=== PATIENT | male | born 1935 | race Caucasian/White ===

== ENCOUNTER 2018-08-30 09:53 | Emergency (ER) | payer MEDICARE, OTHER ==
--- OUTSIDE RECORDS SUMMARY | 2018-08-30 10:18 | XMS REPORT | Continuity of Care Document ---
:1935 External Reference #:[id number] Author Name Rubén Gomes M.D. Address [address] [place] [address] Care Team Providers Name Role Phone Lincoln Javier M.D. Primary Care Physician Unavailable Payers Type Date Identification Numbers Payment Provider Subscriber Onset: 2011 Policy Number: [id number] Medicare - [facility] Mitchell Traore PayID: [id number] [address] [place] [address] Onset: 2011 Policy Number: [id number] [facility] Mitchell Traore PayID: [id number] [address] [place] [address] Advance Directives Description No Information Available Problems Date Description Provider Status Onset: Coronary artery bypass graft Active Note: 2005 Onset: Pure hypercholesterolemia Active Onset: Essential hypertension Active Onset: H/O: depression Active Onset: Anxiety Active Onset: 01/11/2015 Exudative age-related macular Rubén Gomes M.D. Active degeneration Onset: 01/11/2015 Nonexudative age-related macular Rubén Gomes M.D. Active degeneration Onset: 01/11/2015 Pseudophakia Rubén Gomes M.D. Active Onset: 04/30/2015 Ocular hypertension Rubén Gomes M.D. Active Onset: 12/04/2016 Conjunctivochalasis Raeann Carter O.D. Active Onset: 07/30/2017 Central retinal vein occlusion Rubén Gomes M.D. Active Onset: 10/12/2017 Central retinal vein occlusion with Rubén Gomes M.D. Active macular edema Onset: 10/12/2017 Retinal edema Rubén Gomes M.D. Active Family History Date Family Member(s) Problem(s) Comments Mother Macular Degeneration First Sister Macular Degeneration Social History Type Date Description Comments Sex Unknown Marital Status Legal Status: Occupation [employer] retired ETOH Use Denies alcohol use Tobacco Use Start: Unknown Patient has never smoked Recreational Drug Use Denies Drug Use Smoking Status Reviewed: 08/05/18 Patient has never smoked Allergies, Adverse Reactions, Alerts Description No Known Drug Allergies Medications Medication Date Status Form Strength Qnty SIG Indications Ordering Provider Artificial Tears 07/29 Active Solution 0.2-0.2-1 1 drop Rubén Leary % both eyes Arleo, twice a M.D. day as needed Lisinopril Active Tablets 20mg Unknown /0000 Amlodipine Active Tablets 5mg Unknown Besylate Citalopram Active Tablets 20mg Unknown Hydrobromide Aspirin Active Tablets 81mg Unknown / Simvastatin Active Tablets 80mg Unknown Alprazolam Active Tablets 0.25mg Unknown Dispers Hydrochlorothiazi Active Tablets 25mg Crepet, de Marge Saba Fluticasone Active Suspension 50mcg/Act Yaya, Propionate Lincoln Saba Metoprolol Active Tablets ER 100mg Yaya, Succinate ER 24HR Lincoln Saba Fluorometholone 12/04 Hx Suspension 0.1% 1unit 1 drop H11.823 Raeann Doe s both eyes Raul, - 3 times a O.D. 01/21 day for week, then discontinu e Artificial Tears 01/10 Hx Solution 1.4% 1 drop both eyes - every day 12/03 Vigamox 10/19 Hx Solution 0.5% 3ml one drop Rubén Leary left eye Arleo, - three M.D. 01/10 times day, start the day before surgery Xanax Hx Tablets 0.25mg Unknown /0000 - 09/05 Metoprolol 00/ Hx Tablets 100mg Unknown Tartrate /0000 - 09/05 Medications Administered in Office Medication Date Status Form Strength Qnty SIG Indications Ordering Provider Avastin Administered Injection Rubén Leary Bevacizumab Zulay Gomes M.D. Avastin Administered Injection Rubén Gomes M.D. Avastin Administered Injection Rubén Gomes M.D. Avastin Administered Injection Rubén Leary Bevacizumab 018 Jayant Gomes Avastin Administered Injection Rubén Leary Bevacizumab 015 Jayant Gomes Avastin Administered Injection Rubén Leary Bevacizumab 015 Jayant Gomes Avastin Administered Injection Rubén Fair 015 Jayant Gomes Avastin Administered Injection Rubén Fair 015 Jayant Gomes Avastin Administered Injection Rubén Gomes M.D. Immunizations Description No Information Available Vital Signs Date Vital Result Comment 12/13/2017 1:56pm BP Systolic 160 mmHg BP Diastolic 87 mmHg Heart Rate 50 /min Respiratory Rate 15 /min 11/08/2017 3:27pm BP Systolic 162 mmHg BP Diastolic 88 mmHg Heart Rate 53 /min Respiratory Rate 16 /min 10/12/2017 2:25pm BP Systolic 182 mmHg BP Diastolic 90 mmHg Heart Rate 60 /min Respiratory Rate 15 /min 09/06/2017 2:12pm BP Systolic 168 mmHg BP Diastolic 72 mmHg Heart Rate 60 /min Respiratory Rate 16 /min Results Description No Information Available Procedures Date Code Description Status 12/28/2017 05596 Scanning Computerized Opthalmic Diagnostic Posterior Seg Completed Retina 12/28/2017 94079 Est Patient Intermediate Exam Completed 12/13/2017 06629 Injection Intravitreal Of A Pharmacologic Agent Completed 11/08/2017 01624 Injection Intravitreal Of A Pharmacologic Agent Completed 11/02/2017 99752 Scanning Computerized Opthalmic Diagnostic Posterior Seg Completed Retina 11/02/2017 34332 Est Patient Comprehensive Exam Completed 10/12/2017 15567 Injection Intravitreal Of A Pharmacologic Agent Completed 09/06/2017 43393 Injection Intravitreal Of A Pharmacologic Agent Completed 08/30/2017 19095 Fundus Photography With Interpretation And Report Completed 08/30/2017 64622 Est Patient Intermediate Exam Completed 07/30/2017 20763 Scanning Computerized Opthalmic Diagnostic Posterior Seg Completed Retina 07/30/2017 12559 Est Patient Comprehensive Exam Completed 01/26/2017 82985 Scanning Computerized Opthalmic Diagnostic Posterior Seg Completed Retina 01/26/2017 04081 Est Patient Comprehensive Exam Completed 12/04/2016 59397 Est Patient Intermediate Exam Completed 07/31/2016 63741 Scanning Computerized Opthalmic Diagnostic Posterior Seg Completed Retina 07/31/2016 96027 Est Patient Comprehensive Exam Completed 01/30/2016 67885 Scanning Computerized Opthalmic Diagnostic Posterior Seg Completed Retina 01/30/2016 52855 Determination Of Refractive State Completed 01/30/2016 20543 Est Patient Comprehensive Exam Completed 08/27/2015 85742 Scanning Computerized Opthalmic Diagnostic Posterior Seg Completed Retina 08/27/2015 95536 Est Patient Comprehensive Exam Completed 04/30/2015 78285 Scanning Computerized Opthalmic Diagnostic Posterior Seg Completed Retina 04/30/2015 35285 Est Patient Comprehensive Exam Completed 04/01/2015 05142 Injection Intravitreal Of A Pharmacologic Agent Completed 02/04/2015 18144 Injection Intravitreal Of A Pharmacologic Agent Completed 01/11/2015 48939 Scanning Computerized Opthalmic Diagnostic Posterior Seg Completed Retina 01/11/2015 67602 Est Patient Comprehensive Exam Completed 12/18/2014 60972 Injection Intravitreal Of A Pharmacologic Agent Completed 11/26/2014 68942 Injection Intravitreal Of A Pharmacologic Agent Completed 10/22/2014 98132 Injection Intravitreal Of A Pharmacologic Agent Completed 09/24/2014 01237 Scanning Computerized Opthalmic Diagnostic Posterior Seg Completed Retina 09/24/2014 58576 Est Patient Comprehensive Exam Completed 06/12/2014 78837 Scanning Computerized Opthalmic Diagnostic Posterior Seg Completed Retina 06/12/2014 54436 Est Patient Comprehensive Exam Completed 05/31/2013 52538 Extracapsular Cataract Extraction W/Intraocular Lens Completed 05/24/2013 20947 Extracapsular Cataract Extraction W/Intraocular Lens Completed 05/18/2013 62867 Ophthalmic Biometry Completed 05/18/2013 13566 Ophthalmic Biometry Completed 05/11/2013 82071 Est Patient Intermediate Exam Completed 11/08/2012 68067 Est Patient Comprehensive Exam Completed 11/08/2012 59202 Determination Of Refractive State Completed 11/08/2012 39363 Scanning Computerized Opthalmic Diagnostic Posterior Seg Completed Retina 07/02/2011 30375 Fundus Photography With Interpretation And Report Completed 07/02/2011 31499 Est Patient Comprehensive Exam Completed 01/28/2010 79818 Scanning Laser W/Interp And Report Completed 01/28/2010 39197 Determination Of Refractive State Completed 01/28/2010 55616 Est Patient Comprehensive Exam Completed 07/08/2009 35043 Fundus Photography With Interpretation And Report Completed 07/08/2009 02541 Est Patient Intermediate Exam Completed 01/04/2009 34816 Scanning Laser W/Interp And Report Completed 01/04/2009 84880 Determination Of Refractive State Completed 01/04/2009 99733 Est Patient Comprehensive Exam Completed 03/29/2008 69674 Fundus Photography With Interpretation And Report Completed 03/29/2008 13887 Determination Of Refractive State Completed 03/29/2008 39390 New Patient Comprehensive Exam Completed Encounters Type Date Location Provider Dx Diagnosis Office Visit 12/11/2016 Raeann Arriola LloydIlana Carter, H11.823 Conjunctivochalas 10:15a , renato Tubbs is, bilateral Office Visit 05/18/2013 Rubén Gomes, Rubén Gomes, 366.16 Senile Nuclear 11:30a renato SAUL M.D. Sclerosis / Cataract 366.16 Senile Nuclear Sclerosis / Cataract Plan of Treatment 08/05/2018 - Rubén Gomes M.D.H35.3112 Nonexudative age-related macular degeneration, right eye, intermediate dry stageComments:Smoking can increase the risk of developing or worsening any eye related disease, as well as affect your overall health. If you are a smoker, we strongly recommend that you quit.If you are not a smoker, we strongly recommend that you do not start. You have Macular Degeneration. Check your Amsler Grid, with each eye separately, and take the AREDS II formula vitamins. If you notice any changes in your vision , please call the office and schedule an appointment to see any of the doctors here.Follow up:1 Year Follow Up Diagnostic Refraction OCT MAC You can expect to have your eyes dilated at your next visit. If Dr. Gomes orders any additional testing, it may require extra time. We recommend that youbring sunglasses, as dilation drops often make you light sensitive until they wear off. We always recommend you bring someone to drive you home if you are uncomfortable driving with your eyes dilated. If you have any questions before your next visit, feel free to call our office at .H35.3223 Exudative age-related macular degeneration, left eye, with inactive scarComments :The wet Macular Degeneration in your left eye appears to be inactive at this time. Continue to monitor your vision, with each eye separately. Use your Amsler Grid and continue taking the AREDS 2 Formula Vitamins. If you notice any changes in your vision before your next appointment, please call theoffice at to schedule an appointment.Follow up:H34.7922 Central retinal vein occlusion, right eye, stableComments:You have a Central Retinal Vein Occlusion. This occurs when the retinal veins have become blocked by, amongst other things, fat deposits or a blood clot. You are at an increased risk of having a Central Retinal Vein Occlusion if there has been any hardening of the arteries in the eye. Please followany instructions given to you by Dr. Gomes.Z96.1 Presence of intraocular lensComments:The artificial lens implants in both eyes appear to be stable at this time.
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
[2018-08-30 11:33] VITALS: BP 100/63
== END 2018-08-30 11:33 | disposition home or self-care (01) ==
LOC: ED 09:53
DX: T14.8XXA Other injury of unspecified body region, initial encounter (principal); M25.511 Pain in right shoulder; V49.9XXA Car occupant (driver) (passenger) injured in unspecified traffic accident, initial encounter; Y92.9 Unspecified place or not applicable
CPT/HCPCS: 99282

== ENCOUNTER 2019-03-30 09:00 | Inpatient (IN) | payer MEDICARE ==
--- NOTE | 2019-03-19 13:57 | HP ---
PREOPERATIVE HISTORY AND PHYSICAL: DATE OF ADMISSION: 03/30/19 ATTENDING PROVIDER: Dr. Rodriguez * (DICTATED BY EZE JUNG) CHIEF COMPLAINT: Left knee pain. HISTORY OF PRESENT ILLNESS: Mr. Traore is an 84-year-old male, who presents with greater than 3 years of increasingly severe left knee pain. His pain increases with walking more than a block. The pain is a constant dull ache with occasional sharp shooting discomfort. He has pain with any prolonged standing or after period of sitting, the knee can be unstable at times and he ambulates with a cane at all times. He has tried anti-inflammatories, intraarticular injections, as well as a home exercise program without relief and would like to proceed with surgical intervention at this time. PAST MEDICAL HISTORY: Hypertension, heart disease, atrial fibrillation, gout, and GERD. PAST SURGICAL HISTORY: CABG x2, right total hip arthroplasty, bilateral shoulder surgery. CURRENT MEDICATIONS: 1. Metoprolol tartrate 100 mg 1 by mouth twice a day. 2. Simvastatin 80 mg 1 by mouth every night at bedtime. 3. Omeprazole 20 mg 1 by mouth daily. 4. Alprazolam 0.25 mg 1 tab p.o. daily. 5. Lisinopril 20 mg 1 tab by mouth daily. 6. Citalopram hydrobromide 20 mg 1 tab by mouth daily. 7. Amlodipine besylate 5 mg 1 tab p.o. daily. 8. Hydrochlorothiazide 12.5 mg 1 capsule p.o. daily. 9. Allopurinol 300 mg 1 tab a day. ALLERGIES: No known drug allergies. FAMILY HISTORY: Positive for heart disease in his father, but negative for cancer or diabetes. SOCIAL HISTORY: He lives alone, but his daughter will be helping to care for him, although she does suggest that he go to rehab for more intensive care following surgery. He is retired. He denies tobacco, alcohol, or recreational drug use and he exercises minimally due to pain. REVIEW OF SYSTEMS: A 14-point review of systems today reveals left hip pain as well as left knee pain, but he denies fever, chills, chest pain, shortness of breath with exertion, nausea, vomiting, diarrhea, headache, or dizziness. All other systems are negative. PHYSICAL EXAMINATION GENERAL: He is a well-developed, well-nourished male, seated in exam chair, in no acute distress, with appropriate affect. VITAL SIGNS: Height 61 inches, weight 220 pounds, pulse 60, blood pressure 124/ 60, with a body mass index of 41.6. HEENT: Normocephalic, atraumatic. Hearing and vision are grossly intact, with extraocular movements intact. NECK: The trachea is midline and symmetrical. LUNGS: No labored breathing. Clear to auscultation without wheezing, rales, or rhonchi appreciated. HEART: Regular rate and rhythm. Normal S1, S2. No murmurs, rubs, or gallops appreciated. ABDOMEN: Nondistended and nontender. Bowel sounds present. GENITOURINARY: Deferred. MUSCULOSKELETAL: Left lower extremity: Skin is pink, dry, and intact without abrasions or open wounds. He has a uqzbxfbh-bb-jplys effusion of the knee with 10 to 100 degrees of flexion and extension. No varus or valgus instability, with negative Juan Pablo's. He is tender to palpation along the medial joint line with pain and patellofemoral crepitus with range of motion. No distal edema, varicosities, or hyperreflexia. 5/5 ankle dorsiflexion and plantarflexion strength with sensation intact to light touch in all distributions and a 2+ dorsalis pedis pulse. IMAGING: Left knee shows medial vvtt-iw-qobf arthritis with tricompartmental joint space narrowing, osteophyte formation, and subchondral sclerosis. ASSESSMENT: Left knee severe osteoarthritis. PLAN: Left total knee replacement with Dr. Rodriguez. The patient's questions were answered and he would like to proceed. He will follow up postoperatively. Medications will be given upon discharge from the hospital and he can call with questions or concerns otherwise. EZE JUNG [id number]/[facility] #: [id number] MICHAEL
--- NOTE | 2019-07-05 16:35 | HP ---
HISTORY AND PHYSICAL: DATE OF ADMISSION/SURGERY: 07/11/19 DATE OF OFFICE VISIT: 07/03/19 SURGEON: Kira Rodriguez MD * (DICTATED BY EZE GABRIEL) PROCEDURE: Left total knee arthroplasty. CHIEF COMPLAINT: Left knee pain. HISTORY OF PRESENT ILLNESS: Mr. Traore is an 84-year-old gentleman with continued complaints of left knee pain. He has failed conservative treatment and elected to proceed with a left total knee arthroplasty. PAST MEDICAL HISTORY: 1. Hypertension. 2. High cholesterol. 3. GERD. 4. Coronary artery disease with history of 2 bypasses, SVT and thrombocytopenia. PAST SURGICAL HISTORY: 1. CABG x2. 2. Bilateral shoulder replacements. 3. Right total hip arthroplasty. 4. Hernia repair. CURRENT MEDICATIONS: 1. Simvastatin 80 mg q.h.s. 2. Omeprazole 20 mg a day. 3. Alprazolam 0.25 mg a day. 4. Lisinopril 20 mg a day. 5. Citalopram hydrobromide 20 mg a day. 6. Amlodipine 5 mg a day. 7. Hydrochlorothiazide 12.5 mg a day. 8. Allopurinol 300 mg a day. 9. Metoprolol 100 mg half a tab every day. 10. Nasal spray. 11. Nitroglycerin as needed. ALLERGIES: No known drug allergies. FAMILY HISTORY: Cancer, coronary artery disease and diabetes. SOCIAL HISTORY: He is an 84-year-old gentleman, lives alone. He does not smoke or use drugs. REVIEW OF SYSTEMS: A complete 14-point review of systems was reviewed with the patient, it was positive for thrombocytopenia and GERD. He denies history of DVT, PE, hepatitis, HIV, or anesthesia problems. PHYSICAL EXAMINATION GENERAL: Well developed, well nourished, in no acute distress. VITAL SIGNS: He stands 61 inches tall, weighs 220 pounds, blood pressure is 110 /76, heart rate 104. HEENT: Normocephalic, atraumatic. NECK: Supple. No palpable lymph nodes. PULMONARY: The lungs are clear to auscultation bilaterally. CARDIO: Regular rate and rhythm. Strong S1, S2. ABDOMEN: Soft, nontender, nondistended. NEUROLOGICAL: He is alert and oriented x3. MUSCULOSKELETAL: Left lower extremity: The skin is intact. There are no open wounds or abrasions. There is a moderate effusion of the left knee joint. He has some tenderness over the medial and lateral joint line. He walks with an antalgic type gait favoring his left knee. He is able to dorsiflex and plantarflex. He has 2+ dorsalis pedis pulse and intact sensation. ASSESSMENT AND PLAN: Mr. Traore is an 84-year-old gentleman with severe end- stage osteoarthritis of the left knee. He has failed conservative treatment and elected to proceed with a left total knee arthroplasty. The surgery is scheduled for 07/11/[address] Rodriguez discussed the risks and benefits of the surgery at today's visit and all of his questions were answered. He will follow up with Dr. Rodriguez 2 weeks after the surgery. No TXA will be used in this patient because of his history of thrombocytopenia. EZE GABRIEL [id number]/[facility] #: [id number] MICHAEL
[2019-07-10] MEDS ORDERED: Buffered Lidocaine 1% SYRIN* 1 ML/SYRINGE INTRADERM ONE (13:12)
[2019-07-10] MEDS ORDERED: Lactated Ringers 1000 ML Bag* 1,000 ML IV SCH (14:00)
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
--- OUTSIDE RECORDS SUMMARY | 2019-07-11 12:57 | XMS REPORT | Continuity of Care Document ---
:1935 External Reference #:[id number] Author Name Kira Rodriguez M.D. (transmitted by agent of provider Bia Coreas) Address [address] [place] [id number] Care Team Providers Name Role Phone Lincoln Javier MD - Family Medicine Care Team Information Tester Compressed Gases Problems Active Problems Provider Date Coronary arteriosclerosis Jerome Lebron M.D. Onset: 11/08/2013 Arteriosclerosis of autologous vein coronary Jerome Lebron M.D. Onset: artery bypass graft Paroxysmal supraventricular tachycardia Jerome Lebron M.D. Onset: 2013 Localized, primary osteoarthritis of the Kira Rodriguez M.D. Onset: 02/24/2019 pelvic region and thigh Localized, primary osteoarthritis Kira Rodriguez M.D. Onset: 02/24/2019 Social History Type Date Description Comments Sex Unknown Tobacco Use Start: Unknown End: Former Cigarette Smoker Unknown Smoking Status Reviewed: 07/03/19 Former Cigarette Smoker ETOH Use Denies alcohol use Tobacco Use Start: Unknown End: Patient is a former 1 pack per day,quit Unknown smoker smoking 40 years ago Recreational Drug Use Denies Drug Use Exercise Type/Frequency Does not exercise Allergies, Adverse Reactions, Alerts Description No Known Drug Allergies Medications Active Medications SIG Qnty Indications Ordering Date Provider Simvastatin 1 by mouth Unknown 80mg Tablets every night at bedtime Omeprazole 1 by mouth 90caps Unknown 20mg Capsules DR every day Alprazolam 1 tab po qd 20tabs Unknown 0.25mg Tablets Lisinopril 1 by mouth 90tabs Unknown 20mg Tablets every day Citalopram Hydrobromide 1 by mouth 30tabs Unknown 20mg every day Tablets Amlodipine Besylate 1 tablet po [place], 5mg Tablets daily MD Adan Hydrochlorothiazide 1 cap po daily Lincoln Javier, 12.5mg MD Capsules Allopurinol 1 by mouth Unknown 300mg Tablets every day Eye Lubricant Unknown Ointment Fluticasone Propionate 2 sprays to Unknown Nasal [place] each nare 50mcg/Act Suspension daily Nitroglycerin Unknown Metoprolol Succinate ER 50mg qam and Unknown 100mg qpm Immunizations Description No Information Available Vital Signs Date Vital Result Comment 07/03/2019 1:32pm Height 61 inches 5'1" Weight 220.00 lb Heart Rate 104 /min BP Systolic Sitting 110 mmHg BP Diastolic Sitting 76 mmHg Respiratory Rate 18 /min Body Temperature 96.9 F Pain Level 0 BMI (Body Mass Index) 41.6 kg/m2 03/17/2019 9:45am Height 61 inches 5'1" Weight 220.00 lb Heart Rate 60 /min BP Systolic 124 mmHg BP Diastolic 60 mmHg BMI (Body Mass Index) 41.6 kg/m2 Results Test Acquired Date Facility Test Result H/L Range Note Inr/Protime 03/17/2019 [facility] Inr 1.04 Normal 0.82-1.09 1 , [address] [place] [address] [phone] Laboratory test 03/17/2019 [facility] Partial 29.7 Normal 26.0 -38.0 [address] [address] PTT [phone] CBC Auto Diff 03/17/2019 [facility] White Blood 7.2 10^3/uL Normal 3.5-10.[address] [place] [address] [phone] Red Blood Count 3.35 10^6/uL Low 4.18-5.48 Hemoglobin 11.8 g/dL Low 14.0-18.0 Hematocrit 35 % Low 42-52 Mean Corpuscular Volume 105 fL High 80-94 Mean Corpuscular Hemoglobin 35 pg High 27-31 Mean Corpuscular HGB Conc 34 g/dL Normal 31-36 Red Cell Distribution Width 15 % Normal 10-15 Abs Neutrophils 2.9 10^3/uL Normal 1.5-7.7 Abs Lymphocytes 3.3 10^3/uL Normal 1.0-4.8 Abs Monocytes 0.5 10^3/uL Normal 0-0.8 Abs Eosinophils 0.4 10^3/uL Normal 0-0.6 Abs Basophils 0.0 10^3/uL Normal 0-0.2 Abs Nucleated RBC 0.0 10^3/uL Granulocyte % 40.9 % Lymphocyte % 46.5 % Monocyte % 6.8 % Eosinophil % 5.2 % Basophil % 0.6 % Nucleated Red Blood Cells % 0.1 Platelet Count 83 10^3/uL Low 150-450 4 Mean Platelet Volume 9.1 fL Normal 7.4-10.4 Type & Screen 03/17/2019 [facility] Patient Blood Type A Negative [address] [place] [address] [phone] Antibody Screen NEGATIVE Comp Metabolic 03/17/2019 [facility] Sodium 139 mmol/L Normal 135-145 Panel [address] [place] [address] [phone] Potassium 4.3 mmol/L Normal 3.5-5.0 Chloride 103 mmol/L Normal 101-111 Co2 Carbon Dioxide 26 mmol/L Normal 22-32 Anion Gap 10 mmol/L Normal 2-11 Calcium 9.4 mg/dL Normal 8.6-10.3 Albumin 4.0 g/dL Normal 3.2-5.2 Total Bilirubin 0.70 mg/dL Normal 0.2-1.0 Glucose 88 mg/dL Normal 70-100 Blood Urea Nitrogen 24 mg/dL Normal 6-24 Creatinine 1.36 mg/dL High 0.67-1.17 BUN/Creatinine Ratio 17.6 Normal 8-20 Total Protein 6.2 g/dL Low 6.4-8.9 Globulin 2.2 g/dL Normal 2-4 Albumin/Globulin Ratio 1.8 Normal 1-3 Alkaline Phosphatase 61 U/L Normal 34-104 Alt 12 U/L Normal 7-52 Ast 22 U/L Normal 13-39 Egfr Non- 49.9 >60 Egfr 60.4 >60 5 1 AA 03/30 2 Standard intensity warfarin therapeutic range: 2.0-3.0 High intensity warfarin therapeutic range: 2.5-3.5 3 AA 03/30 4 Platelet count confirmed by estimate 5 Because ethnic data is not always readily available, this report includes an eGFR for both -Americans and non- Americans. The National Kidney Disease Education Program (NKDEP) does not endorse the use of the MDRD equation for patients that are not between the ages of 18 and 70, are , have extremes of body size, muscle mass, or nutritional status, or are non- or non-. According to the National Kidney Foundation, irrespective of diagnosis, the stage of the disease is based on the level of kidney function: Stage Description GFR(mL/min/1.73 m(2)) 1 Kidney damage with normal or decreased GFR 90 2 Kidney damage with mild decrease in GFR 60-89 3 Moderate decrease in GFR 30-59 4 Severe decrease in GFR 15-29 5 Kidney failure <15 (or dialysis) Procedures Date Code Description Status 03/14/2019 59936 Treadmill Interp/Report Only Completed 03/14/2019 01123 Stress Test Supervsn W/Out I/R Completed 03/07/2019 26337 EKG Tracing & Interpretation Completed Medical Devices Description No Information Available Encounters Type Date Location Provider Dx Diagnosis Office Visit 03/07/2019 [facility] Jerome López M25.562 Pain in left knee 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 [employer] AT [facility] [place] Jayant Lebron I25.810 Atherosclerosis of CABG w/o angina pectoris I10 Essential (primary) hypertension Z01.810 Encounter for preprocedural cardiovascular examination M17.12 Unilateral primary osteoarthritis, left knee Office Visit 02/24/2019 10:00a [facility] Kira Rodriguez M25.562 Pain in left at [facility] [place] knee M25.462 Effusion, left knee M17.12 Unilateral primary osteoarthritis, left knee M25.552 Pain in left hip M16.12 Unilateral primary osteoarthritis, left hip Assessments Date Code Description Provider 03/17/2019 M25.562 Pain in left knee Kira Rodriguez M.D. 03/17/2019 M25.462 Effusion, left knee Kira Rodriguez M.D. 03/17/2019 M17.12 Unilateral primary osteoarthritis, left Kira Rodriguez M.D. knee 03/14/2019 M25.562 Pain in left knee Jerome Lebron M.D. 03/14/2019 I25.810 Atherosclerosis of coronary artery bypass Jeorme Lebron M.D. graft(s) without angina pectoris 03/07/2019 M25.562 Pain in left knee Jerome Lebron M.D. 03/07/2019 I25.810 Atherosclerosis of coronary artery bypass Jerome Lebron M.D. graft(s) without a 03/07/2019 I10 Essential (primary) hypertension Jerome Lebron M.D. 03/07/2019 Z01.810 Encounter for preprocedural cardiovascular Jerome Lebron M.D. examination 03/07/2019 M17.12 Unilateral primary osteoarthritis, left Jerome Lebron M.D. knee 02/24/2019 M25.562 Pain in left knee Kira Rodriguez M.D. 02/24/2019 M25.462 Effusion, left knee Kira Rodriguez M.D. 02/24/2019 M17.12 Unilateral primary osteoarthritis, left Kira Rodriguez M.D. knee 02/24/2019 M25.552 Pain in left hip Kira Rodriguez M.D. 02/24/2019 M16.12 Unilateral primary osteoarthritis, left hip Kira Rodriguez M.D. Plan of Treatment Future Appointment(s):07/11/2019 11:30 am - Kira Rodriguez M.D. at [facility]09/13/2019 10:30 am - Salomón Linares MD at [facility] Functional Status Description No Information Available Mental Status Description No Information Available Referrals Description No Information Available
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
[2019-07-11] MEDS ORDERED: ceFAZolin 2 GM in NS PREMIX(*) 2 GM/100 ML BAG IVPB ONE (13:40)
[2019-07-11] MEDS ORDERED: Buffered Lidocaine 1% SYRIN* 1 ML/SYRINGE INTRADERM ONE (13:40)
[2019-07-11] MEDS ORDERED: fentaNYL* 50 MCG/ML 2 ML VIAL (100 MCG VIAL) ONE (13:53)
[2019-07-11] MEDS ORDERED: Midazolam* 1 MG/ML 2 ML VIAL (2 MG) ONE (13:53)
[2019-07-11] MEDS ORDERED: ROPIVACAINE 5 MG/ML 30 ML BTL (0.5%) ONE ×2 (14:49→15:03)
[2019-07-11] MEDS ORDERED: Naloxone* 0.4 MG/ML 1 ML VIAL IV PRN (15:51)
[2019-07-11] MEDS ORDERED: Ondansetron INJ* 2 MG/ML VIAL IV PRN ×2 (15:51→18:01)
[2019-07-11] MEDS ORDERED: HYDROmorphone INJ1* 1 MG/ML SYRINGE IV PRN (15:51)
[2019-07-11] MEDS ORDERED: oxyCODONE/Acetamin 5/325 MG* TAB PO PRN ×2 (15:51→18:01)
[2019-07-11] MEDS ORDERED: Propofol* 10 MG/ML 20 ML BTL ONE ×2 (16:13→16:52)
[2019-07-11] MEDS ORDERED: Phenylephrine 40 MCG/ML SYRINGE ONE ×2 (16:13→17:16)
[2019-07-11] MEDS ORDERED: diPHENhydraMINE PO* 25 MG PO PRN (18:01)
[2019-07-11] MEDS ORDERED: Temazepam CAP* 15 MG PO PRN (18:01)
[2019-07-11] MEDS ORDERED: oxyCODONE TAB* 5 MG TAB PO PRN (18:01)
[2019-07-11] MEDS ORDERED: Cyclobenzaprine TAB* 10 MG PO PRN (18:01)
[2019-07-11] MEDS ORDERED: Morphine INJ* 2 MG/ML 1 ML SYRINGE (TWO MG - NEW SYRINGE VERSION) IV PRN (18:01)
[2019-07-11] MEDS ORDERED: Polyethylene Glycol 3350* 17 GM PACKET PO PRN (18:01)
[2019-07-11] MEDS ORDERED: Ondansetron ODT TAB* 4 MG PO PRN (18:01)
[2019-07-11] MEDS ORDERED: traMADol TAB* 50 MG PO PRN (18:01)
[2019-07-11] MEDS ORDERED: diPHENhydraMINE IV* 50 MG/ML 1 ml VIAL (BENADRYL) IV PRN (18:01)
[2019-07-11] MEDS ORDERED: Magnesium Hydroxide LIQ* 30 ML UDC PO PRN (18:01)
[2019-07-11] MEDS ORDERED: HYDROmorphone INJ1* 1 MG/ML SYRINGE ONE (19:02)
[2019-07-11] MEDS ORDERED: oxyCODONE/Acetamin 5/325 MG* TAB ONE (19:13)
--- NOTE | 2019-07-11 20:10 | OP ---
Operative Report - Blank - Operative Report Date of Operation: 07/11/19 Note: KD DANIEL JR 1935 Date of Surgery: 07/11/19 Kira Rodriguez MD Color Buffer: Janeen LOO did help throughout the procedure with preparation of the knee, wound retraction, manipulation of the knee, and wound closure. Anesthesiologist: Dr. Perez Anesthesia Type: Spinal Preoperative Diagnosis: Left severe degenerative osteoarthritis of the knee Postoperative Diagnosis: As above Procedure Performed: Left Total Knee Arthroplasty Tourniquet time: 52 minutes Complications: None Specimen: Bone and cartilage from the left knee joint sent to pathology. Hardware Used: Cemented Mirza [employer]hew total knee hardware was used - For the femur a size 5 left legion posterior stabilized femoral component, for the tibia a size left5 viraj II tibial baseplate, for the insert a size 9mm 5-6 posterior stabilized articular polyethylene insert, and for the patella a size 35 3-peg all poly patella. Brief History/Indication: KD DANIEL JR was known in clinic and had a history of severe left knee pain and swelling. He failed conservative treatment with anti-inflammatories, pain pills, intra-articular injections and physical therapy. He elected to undergo left total knee arthroplasty due to continued pain and decreased quality of life. Radiographs showed severe end stage osteoarthritis of the knee with bone on bone contact. Informed consent was obtained from the patient. He understood the risks of surgery included but were not limited to: bleeding, infection, damage to nearby structures, intraoperative fracture, nerve palsy, failure of the hardware, early loosening, knee stiffness or loss of motion, anesthesia complications, stroke, heart attack , blood clot and . He wished to proceed. Intra-Operative Findings: Intraoperatively the patient was noted to have severe loss of cartilage in all 3 compartments of the knee. Description of the Procedure: KD DANIEL JR was identified in the preanesthesia unit. His left knee was marked as the correct operative side. Informed consent was signed and placed in the chart. The patient was taken to the operating room and placed under anesthesia without complication. A polanco catheter was placed. A tourniquet was placed on the left thigh. The left lower extremity was prepped and draped in the usual sterile fashion. Preoperative time-out was made to correctly identify the patient, side and site. Appropriate intraoperative antibiotics were given within one hour of incision. Tourniquet was inflated. A midline incision was made and carried sharply down to the extensor mechanism. A new 10 blade was used to make a standard medial parapatellar arthrotomy. The patella was subluxed laterally. Electrocautery was used to dissect soft tissue off the superomedial tibia to the midsagittal plane. The knee was flexed up. The anterior horn of the lateral meniscus and the ACL were sharply incised. A drill was used to enter the distal femur. The intramedullary distal femoral cutting guide was pinned on the distal femur. The oscillating saw was used to make the distal femoral cut. The external rotation guide was pinned on the distal femur and the distal femur was sized to a size 5. The size 5 multi-cutting jig was pinned on the distal femur. The oscillating saw was used to make the appropriate 4 chamfer cuts. Next the PCL was completely released. The extramedullary tibial cutting guide was pinned on the proximal tibia and the oscillating saw was used to make the proximal tibial cut perpendicular to the mechanical axis of the tibia. The bone was carefully removed. The knee was brought out into full extension. The spacer block was placed and had excellent fit with the knee in full extension. The medial and lateral ligaments were well balanced. The flexion and extension gaps were well balanced. The knee was flexed up. Lamina creel hand was placed both medially and laterally. Any remaining meniscus was removed with electrocautery. Curved osteotome was used to remove any posterior osteophytes. The tibial tray and drop caryl were placed and confirmed a satisfactory tibial cut. The size 5 left femoral trial was impacted onto the distal femur. This trial had excellent fit and stability. The box for the posterior stabilized implant was prepared using a box cut osteotome and a reamer. Next a tibial tray trial and 9 mm insert trial was placed. The knee was taken through a range of motion and had full extension to 130 degrees of flexion. Patellofemoral tracking was satisfactory. The patella was inverted and sized to a size 35. Three peg holes were drilled through the size 35 drill guide. The trial patella was placed and the knee was taken through a range of motion. There was satisfactory patellofemoral tracking. All trials were removed. The tibia was subluxed anteriorly and sized to a size 5. The proximal tibial was prepared with a size 5 keel punch. All bony cut surfaces were irrigated with sterile saline and dried. Final implants were cemented into place starting with the tibia, followed by the femur, and last the patella. A 9 mm insert trial was placed and the knee was brought into full extension. Tourniquet was turned down and the knee was copiously irrigated with sterile saline. Electrocautery was used to obtain meticulous hemostasis. Once the cement had fully cured, the insert trial was removed. Any excess cement was removed from around the hardware and capsule. Final insert chosen was a 9 mm posterior stabilized Viraj II articular insert size 5-6. Stability of the insert was checked and noted to be stable. The extensor mechanism was closed using number 1 vicryls. The rest of the incision was closed in a layered fashion using 0 and 2-0 vicryls. The skin was closed using 3-0 nylon suture. Sterile xeroform, 4x4s and webril were used to cover the incision. Blanco wrap and cold pack were used to cover the dressings. The patients anesthesia was reversed without difficulty. He was taken to the PACU in stable condition. Intended weight-bearing will be as tolerated.
[2019-07-11] MEDS: Lactated Ringers 1000 ML Bag* 1,000 ML IV SCH (20:41)
[2019-07-11] MEDS: Docusate CAP* 100 MG PO SCH (20:41)
[2019-07-11] MEDS: Magnesium Hydroxide LIQ* 30 ML UDC PO SCH (20:41)
--- NOTE | 2019-07-11 20:50 | CONS ---
CC: Dr. Lincoln Javier; Dr. Kira Rodriguez * CONSULTATION REPORT: DATE OF CONSULT: 07/11/19 PRIMARY CARE PROVIDER: Lincoln Javier MD REQUESTING PHYSICIAN IN CONSULTATION: Kira Rodriguez MD ATTENDING PHYSICIAN: Dr. Silvia Houston (dictated by EZE Rosenberg). REASON FOR CONSULT: Co-medical management. HISTORY OF PRESENT ILLNESS: Mr. Traore is an 84-year-old with past medical history of CAD, status post CABG x2, hypertension, hyperlipidemia, who presented [place] [facility] [place] an elective left total knee arthroplasty. He is seen post-operatively in the PACU. He appears somewhat groggy but is in good spirits. He denies pain in the left knee and notes that it is "just achy." He has no other complaints today. PAST MEDICAL HISTORY: 1. CAD, status post CABG. 2. Hypertension. 3. Hyperlipidemia. 4. Gout. 5. GERD. 6. Depression, anxiety. PAST SURGICAL HISTORY: 1. CABG. 2. Bilateral shoulder replacement. 3. Right total hip arthroplasty. 4. Hernia. HOME MEDICATIONS: 1. Allopurinol 300 mg p.o. daily. 2. Alprazolam 0.25 mg p.o. at bedtime. 3. Amlodipine 5 mg p.o. daily. 4. Citalopram 20 mg p.o. daily. 5. Hydrochlorothiazide 12.5 mg p.o. daily. 6. Lisinopril 20 mg p.o. daily. 7. Metoprolol succinate 50 mg p.o. a.m., 100 mg p.o. at bedtime. 8. Omeprazole 20 mg p.o. daily. 9. Simvastatin 80 mg p.o. at bedtime. ALLERGIES: No known drug allergies. FAMILY HISTORY: Father committed suicide at the age of 54, mother at the age of 83. The patient has 1 son with prostate cancer, 1 son with heart disease and diabetes. SOCIAL HISTORY: The patient denies tobacco use or alcohol use. He is retired. He is . On chart review, it appears that the patient smoked less than 1 pack per day for approximately 10 years but quit over 40 years ago. REVIEW OF SYSTEMS: A 14-point review of systems has been performed and all the pertinent positives and negatives are in the HPI. All other systems are negative. PHYSICAL EXAM: Vital Signs: Temperature 97.3 temporal, heart rate 99, respiratory rate 16, oxygen saturation 95% on room air, blood pressure 113/70. General: Mr. Traore is a well-developed, well-nourished, obese, older white male , who is lying in bed. He is somewhat groggy but is alert, pleasant, and cooperative. He appears to be in no acute distress. HEENT: PERRL. EOMI. Nonicteric sclerae. Hearing is grossly intact. Oral mucous membranes are moist. There are no lesions. The tongue is at midline. Palate elevates symmetrically. The patient is edentulous. Cardiovascular: Regular rate and rhythm with S1, S2 present without murmurs, rubs, clicks, or gallops. There is no JVD. There is no peripheral edema. Pulmonary: Symmetrical chest expansion without use of accessory muscles. Clear to auscultation bilaterally without rhonchi, wheeze, rales. No digital clubbing or cyanosis. Abdomen: Obese. Bowel sounds in all quadrants. Soft, nontender to palpation. Musculoskeletal: There is a clean, dry, intact dressing in place with overlying Blanco wrap to the left knee. Cryo unit in place. Distal sensation is intact. The patient is able to move the left extremity and movement intact distally. 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 Neuro: The patient is awake. The patient is awake. He is alert and oriented x3. Cranial nerves II through XII are grossly intact. ASSESSMENT AND PLAN: Mr. Traore is an 84-year-old male with a past medical history of coronary artery disease, status post coronary artery bypass graft, hypertension, hyperlipidemia, who presented to [facility] [place] for an elective left total knee arthroplasty. The patient will be admitted for: 1. Left total knee arthroplasty management per Dr. Rodriguez and ortho team, OT and PT. Continue pain management. Apixaban 2.5 mg p.o. b.i.d. for DVT prophylaxis. 2. Hypertension. Continue home amlodipine, Lisinopril, HCTZ, metoprolol. 3. Hyperlipidemia. Continue statins. 4. GERD. Continue omeprazole. 5. Depression/anxiety. Continue citalopram, alprazolam on hold. 6. Gout. Continue allopurinol. 7. DVT prophylaxis. Per Ortho, 2.5 mg apixaban p.o. b.i.d. 8. Code status: Full code. TIME SPENT: Approximately 35 minutes was spent on this consultation, greater than half that time was spent [id number] with the patient and his son obtaining history, performing physical, and reviewing the plan of care. The case has been reviewed with my attending Dr. Houston, who is in agreement with the plan of care. EZE FOLYE [id number]/CPS #: [id number] MTDD
[2019-07-11] MEDS: oxyCODONE/Acetamin 5/325 MG* TAB PO PRN (22:28)
[2019-07-11] MEDS: Acetaminophen TAB* 325 MG PO SCH (22:35)
[2019-07-11] MEDS: Atorvastatin* 40 MG TAB PO SCH (22:35)
[2019-07-11] MEDS: ceFAZolin 1 GM ADVAN(*) 1 GM in NS 0.9% 50 ML* 50 ML IVPB SCH (23:35)
[2019-07-12] MEDS ORDERED: NS 0.9% 1000 ML** 1,000 ML IV ONE (02:21)
[2019-07-12] MEDS: Metoprolol Succinate XL TAB* 50 MG PO SCH (04:18)
[2019-07-12 05:57] LABS: ABS Lymphocytes 2.6 10^3/ul (1.0-4.8); ABS Monocytes 0.7 10^3/ul (0-0.8); Eosinophil % 0.1 %; Hematocrit 29 % (42-52); Hemoglobin 9.7 g/dL (14.0-18.0); Lymphocyte % 23.2 %; Mean Corpuscular HGB Conc 33 g/dL (31-36); Mean Corpuscular Hemoglobin 36 pg (27-31); Mean Corpuscular Volume 107 fL (80-94); Red Blood Count 2.72 10^6 /uL (4.18-5.48); Red Cell Distribution Width 15 % (10-15); White Blood Count 11.4 10^3/uL (3.5-10.8)
[2019-07-12] MEDS: Acetaminophen TAB* 325 MG PO SCH ×3 (05:59→21:46)
[2019-07-12 06:00] LABS: BUN/Creatinine Ratio 19.7 (8-20); Calcium 8.3 mg/dL (8.6-10.3); EGFR African American 59.9 (>60); EGFR Non-African American 49.5 (>60); Potassium 4.4 mmol/L (3.5-5.0)
[2019-07-12] MEDS: oxyCODONE/Acetamin 5/325 MG* TAB PO PRN ×2 (06:26→12:43)
[2019-07-12 06:30] LABS: Mean Platelet Volume 9.7 fL (7.4-10.4); Platelet Count 80 10^3/uL (150-450)
[2019-07-12 08:28] LABS: Magnesium 1.3 mg/dL (1.9-2.7)
--- NOTE | 2019-07-12 08:29 | PN ---
Progress Note - Progress Note Date of Service: 07/12/19 SOAP: Subjective: []Pt seen at bedside. He feels well without CP, feeling of irregular heartbeats , SOB, dizziness or nausea. Objective: []Gen: NAD, alert and oriented x 3 LLE: Left knee dressing CDI, thig soft, DF/PF intact, DP2+, sensation intact to light touch distally Calves supple and nontender without erythema, edema or palpable cords Assessment: []POD 1 sp LTK Plan: []WBAT PT.OT Tachycardia overnight with missed dose of metoprolol last night. Metoprolol and fluid bolus given this morning, hospitalist in to see him now. Started tele and ordered repeat EKG Thrombocytopenia: PLT of 80. Reviewed values since 2016 ranging roughly 80-100 Eliquis 5 mg po BID DVT prophy Vital Signs Temp 99.1 F 07/12/19 08:22 Pulse 68 07/12/19 08:22 Resp 16 07/12/19 08:22 BP 125/98 07/12/19 08:22 Pulse Ox 97 07/12/19 08:22 Intake & Output 07/11/19 07/12/19 07/12/19 18:59 06:59 18:59 Intake Total 1999 2273 Output Total 150 400 Balance 1850 1873 Weight 220 lb Intake: IV Fluids 1999 1615 LR 1999 635 NS (0.9%) 980 IVPB 58 ABX - CEFAZOLIN 58 Oral 600 Output: Gaytan 150 400 Other: # Bowel Movements 0 Estimated Blood Loss 200 Comment Laboratory Last Values WBC 11.4 10^3/uL (3.5-10.8) H 07/12/19 05:04 RBC 2.72 10^6 /uL (4.18-5.48) L 07/12/19 05:04 Hgb 9.7 g/dL (14.0-18.0) L 07/12/19 05:04 Hct 29 % (42-52) L 07/12/19 05:04 MCV 107 fL (80-94) H 07/12/19 05:04 MCH 36 pg (27-31) H 07/12/19 05:04 MCHC 33 g/dL (31-36) 07/12/19 05:04 RDW 15 % (10-15) 07/12/19 05:04 Plt Count 80 10^3/uL (150-450) L 07/12/19 05:04 MPV 9.7 fL (7.4-10.4) 07/12/19 05:04 Neut % (Auto) 70.3 % 07/12/19 05:04 Lymph % (Auto) 23.2 % 07/12/19 05:04 Dundy % (Auto) 6.2 % 07/12/19 05:04 Eos % (Auto) 0.1 % 07/12/19 05:04 Baso % (Auto) 0.2 % 07/12/19 05:04 Absolute Neuts (auto) 8.0 10^3/ul (1.5-7.7) H 07/12/19 05:04 Absolute Lymphs (auto) 2.6 10^3/ul (1.0-4.8) 07/12/19 05:04 Absolute Monos (auto) 0.7 10^3/ul (0-0.8) 07/12/19 05:04 Absolute Eos (auto) 0.0 10^3/ul (0-0.6) 07/12/19 05:04 Absolute Basos (auto) 0.0 10^3/ul (0-0.2) 07/12/19 05:04 Absolute Nucleated RBC 0.0 10^3/ul 07/12/19 05:04 Nucleated RBC % 0.0 07/12/19 05:04 Sodium 136 mmol/L (135-145) 07/12/19 05:04 Potassium 4.4 mmol/L (3.5-5.0) 07/12/19 05:04 Chloride 105 mmol/L (101-111) 07/12/19 05:04 Carbon Dioxide 24 mmol/L (22-32) 07/12/19 05:04 Anion Gap 7 mmol/L (2-11) 07/12/19 05:04 BUN 27 mg/dL (6-24) H 07/12/19 05:04 Creatinine 1.37 mg/dL (0.67-1.17) H 07/12/19 05:04 Est GFR ( Amer) 59.9 (>60) 07/12/19 05:04 Est GFR (Non-Af Amer) 49.5 (>60) 07/12/19 05:04 BUN/Creatinine Ratio 19.7 (8-20) 07/12/19 05:04 Glucose 138 mg/dL (70-100) H 07/12/19 05:04 Calcium 8.3 mg/dL (8.6-10.3) L 07/12/19 05:04 Magnesium 1.3 mg/dL (1.9-2.7) L 07/12/19 05:04
[2019-07-12] MEDS: ceFAZolin 1 GM ADVAN(*) 1 GM in NS 0.9% 50 ML* 50 ML IVPB SCH ×2 (08:50→15:43)
[2019-07-12] MEDS ORDERED: Metoprolol Tartrate IV* 1 MG/ML 5 ML VIAL IV ONE (08:52)
[2019-07-12] MEDS ORDERED: Metoprolol Tartrate IV* 1 MG/ML 5 ML VIAL ONE (08:53)
[2019-07-12] MEDS: Citalopram TAB* 20 MG PO SCH (08:58)
[2019-07-12] MEDS: Vitamin THERAPEUTIC TAB PO SCH (08:59)
[2019-07-12] MEDS: Docusate CAP* 100 MG PO SCH ×2 (08:59→20:37)
[2019-07-12] MEDS: Pantoprazole TAB * 40 MG TAB PO SCH (08:59)
[2019-07-12] MEDS: Magnesium Hydroxide LIQ* 30 ML UDC PO SCH ×2 (08:59→20:37)
[2019-07-12] MEDS ORDERED: NON FORMULARY MED* (Hydrochlorothiazide [Hydrochlorothiazide] 12.5 MG) PO SCH (09:00)
[2019-07-12] MEDS ORDERED: Hydrochlorothiazide TAB* 25 MG PO SCH (09:00)
[2019-07-12] MEDS ORDERED: NON FORMULARY MED* (Lisinopril [Lisinopril] 20 MG) PO SCH (09:00)
[2019-07-12] MEDS ORDERED: Metoprolol Succinate XL TAB* 100 MG PO SCH ×3 (09:00→21:00)
[2019-07-12] MEDS ORDERED: amLODIPine TAB* 5 MG PO SCH (09:00)
[2019-07-12] MEDS ORDERED: Apixaban* 2.5 MG TAB PO SCH (09:00)
[2019-07-12] MEDS ORDERED: Lisinopril TAB* 10 MG PO SCH (09:00)
[2019-07-12] MEDS ORDERED: Magnesium Sulf 4 GM/100 ML IV* 4,000 MG/100 ML BAG IVPB ONE (09:30)
--- NOTE | 2019-07-12 09:32 | PN ---
Subjective Date of Service: 07/12/19 Interval History: Called urgently to evaluate patient for tachycardia this morning. Per report at 0430 today, patient was tachy with rate of 144. Found to be in afib, with questionable VT vs afib with aberrancy. At bedside, patient denies chest pain, no SOB, no palpitations or dizziness. Repeating EKG and placing on tele, patient is having runs of what appears to be wide complex VT. Daughter at bedside, POC discussed, patient will be transferred off short stay for cardiac care. Objective Active Medications: Acetaminophen (Tylenol Tab*) 975 mg PO Q8HR [facility], [facility] Last Admin: 07/12/19 05:59 Dose: Not Given Allopurinol (Zyloprim Tab*) 300 mg PO QPM FOR[facility], [facility] Amlodipine Besylate (Norvasc Tab*) 5 mg PO DAILY [facility], [facility] Last Admin: 07/12/19 08:58 Dose: 5 mg Apixaban (Eliquis*) 2.5 mg PO BID [facility] Last Admin: 07/12/19 08:58 Dose: 2.5 mg Atorvastatin Calcium (Lipitor*) 40 mg PO BEDTIME FOR[facility] Last Admin: 07/11/19 22:35 Dose: 40 mg Bisacodyl (Dulcolax Supp*) 10 mg ND DAILY PRN PRN Reason: CONSTIPATION Citalopram Hydrobromide (Celexa Tab*) 20 mg PO DAILY [facility], [facility] Last Admin: 07/12/19 08:58 Dose: 20 mg Cyclobenzaprine HCl (Flexeril Tab*) 10 mg PO Q6H PRN PRN Reason: SPASMS Last Admin: 07/11/19 22:29 Dose: 10 mg Diphenhydramine HCl (Benadryl Iv*) 25 mg IV Q6H PRN PRN Reason: PRURITIS Diphenhydramine HCl (Benadryl Po*) 25 mg PO Q6H PRN PRN Reason: PRURITIS Docusate Sodium (Colace Cap*) 100 mg PO BID [facility] Last Admin: 07/12/19 08:59 Dose: 100 mg Hydrochlorothiazide (Hydrodiuril Tab*) 12.5 mg PO QAM [facility] Last Admin: 07/12/19 08:59 Dose: 12.5 mg Cefazolin Sodium 1 gm/ Sodium (Chloride) 50 mls @ 200 mls/hr IVPB Q8H [facility] Stop: 07/12/19 15:44 Last Admin: 07/12/19 08:50 Dose: 200 mls/hr Lactated Ringer's (Lactated Ringers 1000 Ml Bag*) 1,000 mls @ 100 mls/hr IV PER RATE [facility], [facility] Last Admin: 07/11/19 20:41 Dose: 100 mls/hr Magnesium Sulfate (Magnesium Sulf 4 Gm/100 Ml Iv*) 4,000 mg in 100 mls @ 33.333 mls/hr IVPB ONCE ONE Stop: 07/12/19 12:29 Lactulose (Lactulose*) 30 ml PO BID PRN PRN Reason: CONSTIPATION Lisinopril (Prinivil Tab*) 20 mg PO DAILY [facility] Last Admin: 07/12/19 08:59 Dose: 20 mg Magnesium Hydroxide (Milk Of Magnesia Liq*) 30 ml PO BID [facility] Last Admin: 07/12/19 08:59 Dose: 30 ml Magnesium Hydroxide (Milk Of Magnesia Liq*) 30 ml PO Q6H PRN PRN Reason: CONSTIPATION Metoprolol Succinate (Toprol Xl Tab*) 50 mg PO 0900 [facility] Last Admin: 07/12/19 04:18 Dose: 50 mg Metoprolol Succinate (Toprol Xl Tab*) 100 mg PO BEDTIME [facility] Morphine Sulfate (Morphine Inj (Syringe))*) 2 mg IV Q4H PRN PRN Reason: Pain - Unrelieved Last Admin: 07/11/19 20:40 Dose: 2 mg Multivitamins (Theragran Tab*) 1 tab PO DAILY [facility] Last Admin: 07/12/19 08:59 Dose: 1 tab Ondansetron HCl (Zofran Inj*) 4 mg IV Q6H PRN PRN Reason: NAUSEA Last Admin: 07/11/19 20:40 Dose: 4 mg Ondansetron HCl (Zofran Odt Tab*) 4 mg PO Q6H PRN PRN Reason: NAUSEA Oxycodone HCl (Roxycodone Tab*) 5 mg PO Q4H PRN PRN Reason: Pain - Breakthrough Last Admin: 07/12/19 02:33 Dose: 5 mg Oxycodone/Acetaminophen (Percocet 5/325 Tab*) 1 tab PO Q4H PRN PRN Reason: PAIN - MODERATE Oxycodone/Acetaminophen (Percocet 5/325 Tab*) 2 tab PO Q4H PRN PRN Reason: PAIN - SEVERE Last Admin: 07/12/19 06:26 Dose: 2 tab Pantoprazole Sodium (Protonix Tab*) 40 mg PO QAM MARINA Last Admin: 07/12/19 08:59 Dose: 40 mg Polyethylene Glycol/Electrolytes (Miralax*) 17 gm PO DAILY PRN PRN Reason: Constipation Temazepam (Restoril Cap*) 15 mg PO BEDTIME PRN PRN Reason: INSOMNIA Tramadol HCl (Ultram*) 50 mg PO Q6H PRN PRN Reason: PAIN - MODERATE Vital Signs - 8 hr 07/12/19 07/12/19 07/12/19 01:40 02:28 02:33 Temperature 99.4 F Pulse Rate 125 Respiratory 16 16 16 Rate Blood Pressure 104/69 (mmHg) O2 Sat by Pulse 94 Oximetry 07/12/19 07/12/19 07/12/19 03:49 04:42 06:13 Temperature 99.7 F Pulse Rate 139 144 143 Respiratory 17 Rate Blood Pressure 126/70 (mmHg) O2 Sat by Pulse 96 Oximetry 07/12/19 07/12/19 07/12/19 06:26 06:32 08:22 Temperature 99.1 F Pulse Rate 68 Respiratory 18 18 16 Rate Blood Pressure 125/98 (mmHg) O2 Sat by Pulse 97 Oximetry 07/12/19 09:19 Temperature Pulse Rate 106 Respiratory Rate Blood Pressure 98/69 (mmHg) O2 Sat by Pulse 97 Oximetry Oxygen Devices in Use Now: Nasal Cannula Appearance: pale, NAD Eyes: PERRLA Ears/Nose/Mouth/Throat: Mucous Membranes Moist Neck: NL Appearance and Movements; NL JVP Respiratory: Symmetrical Chest Expansion and Respiratory Effort, Clear to Auscultation Cardiovascular: NL Sounds; No Murmurs; No JVD, - - tachy, irregular Abdominal: NL Sounds; No Tenderness; No Distention Extremities: No Edema, - - left knee dressing CDI Skin: No Rash or Ulcers Neurological: Alert and Oriented x 3 Nutrition: Taking PO's Result Diagrams: 07/12/19 05:04 07/12/19 05:04 Assess/Plan/Problems-Billing Assessment: This is an 84 year old male with hx of CAD/CABG, afib, HTN, gout, GERD and OA that [place] [facility] [place] that has had post-operative episodes of afib with RVR and Vtach early today. - Patient Problems (1) V-tach Code(s): I47.2 - VENTRICULAR TACHYCARDIA SNOMED Code(s): 15607861 Comment: - Missed dose of metoprolol last evening - EKG repeated, shows afib with RVR, but tele strips show breakthrough runs of wide complex VT with rate of 150s - Per patient report, no hx of VT in the past but does have afib, not on AC - Mag level 1.3, replete mag, 4gm IV ordered now, lopressor 5mg IVP given now for rate control - Continuous tele - Cardiology consulted, recommends continue BB and transfer to ICU (2) Atrial fibrillation with RVR Code(s): I48.91 - UNSPECIFIED ATRIAL FIBRILLATION SNOMED Code(s): 643088505759635 Comment: - Not on AC outpatient - Continue BB for rate control, IV lopressor PRN - Continue tele (3) Status post left knee replacement Code(s): Z96.652 - PRESENCE OF LEFT ARTIFICIAL KNEE JOINT SNOMED Code(s): 7344111705570 Comment: - POD1 - POC as per ortho - Pain control PRN - Not clear for PT/OT today given arrythmias (4) History of coronary artery disease Code(s): Z86.79 - PERSONAL HISTORY OF OTHER DISEASES OF THE CIRCULATORY SYSTEM SNOMED Code(s): 601624479 Comment: - With hx of CABG, sees Dr. Lebron outpatient - Continue statin and BB (5) HTN (hypertension) Code(s): I10 - ESSENTIAL (PRIMARY) HYPERTENSION SNOMED Code(s): 21796457 Comment: - Stable on HCTZ and lisinopril (6) Gout Code(s): M10.9 - GOUT, UNSPECIFIED SNOMED Code(s): 98773400 Comment: - Not in flare - Continue allopurinol (7) GERD (gastroesophageal reflux disease) Code(s): K21.9 - GASTRO-ESOPHAGEAL REFLUX DISEASE WITHOUT ESOPHAGITIS SNOMED Code(s): 787587931 Comment: - PPI (8) DVT prophylaxis Code(s): Z29.9 - ENCOUNTER FOR PROPHYLACTIC MEASURES, UNSPECIFIED SNOMED Code( s): 178921782 Comment: - Eliquis 2.5 BID as per ortho for post op prophy but will discuss continuing AC with cardiology given afib (9) Full code status Code(s): Z78.9 - OTHER SPECIFIED HEALTH STATUS SNOMED Code(s): 812206814 Status and Disposition: Inpatient, transfer to ICU, condition: guarded.
[2019-07-12] MEDS ORDERED: Amiodarone IV VIAL** 50 MG/ML 3 ML (150 MG) VIAL ONE ×2 (10:29→13:35)
[2019-07-12] MEDS ORDERED: Metoprolol Tartrate IV* 1 MG/ML 5 ML VIAL IV PRN (11:24)
[2019-07-12] MEDS ORDERED: Magnesium Sulfate 2 GM IV* 2 GM/50 ML BAG IVPB ONE (11:25)
[2019-07-12] MEDS ORDERED: Diltiazem IV push/loading dose 5 MG/ML 5 ML vial (25 mg) IV SLOW PU ONE (12:20)
[2019-07-12] MEDS ORDERED: Diltiazem IV BAG* D5W Premix 125 MG/125 ML BAG IV SCH (13:00)
[2019-07-12 13:01] LABS: Urine Appearance Cloudy; Urine Bilirubin Negative (Negative); Urine Blood 2+ (Negative); Urine Color Yellow; Urine Glucose Negative (Negative); Urine Ketones Negative (Negative); Urine Nitrite Negative (Negative); Urine Protein Negative (Negative); Urine Specific Gravity 1.021 (1.010-1.030); Urine Urobilinogen Negative (Negative)
[2019-07-12 13:05] LABS: Urine Bacteria Absent (Absent); Urine Red Blood Cell 3+(>10/hpf) (Absent); Urine White Blood Cell Trace(0-5/hpf) (Absent)
[2019-07-12] MEDS: Lactated Ringers 1000 ML Bag* 1,000 ML IV SCH (14:32)
[2019-07-12] MEDS ORDERED: Perflutren Lipid Microsphere* 3 ML VIAL ONE (15:31)
--- NOTE | 2019-07-12 16:38 | ECHO ---
*[facility]* [place] [address] Fax #: [phone] Transthoracic Echocardiogram Patient: Mitchell Traore : 1935 Study Date: 07/12/2019 Age: 84 Gender: M HR: 101 bpm Height: 63 in /160 cm BSA: 2.01 m^2 Weight: 219.5 lb /99.8 kg BMI: 39 kg/m^2 *Tennis Player: Radha Ruby [facility] *Referring Physician: * Susie Chatman MD *Reading Physician: * Susie Chatman MD Indications: Abnormal EKG. History: Atrial fibrillation. Coronary artery disease. Labs, prior tests, procedures, and surgery: Coronary artery bypass grafting. Conclusions Summary: - Left ventricle: The cavity size is normal. Wall thickness is mildly increased. The estimated ejection fraction is 55-60%. - Ventricular septum: Ventricular septal wall motion has a postoperative appearance. - Left atrium: The atrium is severely dilated. - Right atrium: The atrium is moderately dilated. - Mitral valve: There is trace regurgitation. The valve area by pressure half-time is 2.5 cm^2. - Aortic valve: Right coronary cusp mobility is restricted. There is trace to mild regurgitation. - Tricuspid valve: There is mild-moderate regurgitation. - Pulmonic valve: There is moderate to severe regurgitation. - Aorta: The ascending aorta internal dimension in the A-P direction, maximal systolic dimension is 3.7 cm. - Ascending aorta: The ascending aorta is mildly dilated. - Pulmonary arteries: Systolic pressure is at the upper limits of normal. Pulmonary artery pressure may be underestimated The peak pressure during systole by Doppler is 32.0 mm Hg. - Compared with prior echocardiogram of 02/06/16, ejection fraction previously 60-65%, previously restrictive diastolic function, prior mitral regurgitation mild to moderate, prior pulmonary regurgitation moderate to severe, prior aorta diameter 4.4 cm, tricuspid regurgitation has increased from trace/mild. Study data: Transthoracic echocardiogram. Procedure: Transthoracic echocardiography was performed. Image quality was adequate. Intravenous Definity , 3 mlswas administered. Image enhancement administered by TORREY Whitingcommunity facilitator. Complete 2D, spectral Doppler, and color flow Doppler. Location: ICU Patient status: Inpatient. Patient room number: 7. Rhythm: Tachycardia, supraventricular tachycardia alternating with wide complex tachycardia. Findings Left ventricle: The cavity size is normal. Wall thickness is mildly increased. The estimated ejection fraction is 55-60%. Although no diagnostic regional wall motion abnormality is identified, this possibility cannot be completely excluded on the basis of this study. Left ventricular diastolic function parameters are indeterminate. Right ventricle: The cavity size is mildly to moderately dilated. Systolic function is normal. Ventricular septum: Ventricular septal wall motion has a postoperative appearance. Left atrium: The atrium is severely dilated. Right atrium: The atrium is moderately dilated. Mitral valve: The Mitral valve annulus appears calcified. The leaflets are mildly thickened. There is no evidence of stenosis. There is trace regurgitation. Aortic valve: The valve is trileaflet. The right coronary cusp is mildly thickened and mildly calcified. Right coronary cusp mobility is restricted. There is no evidence of stenosis. There is trace to mild regurgitation. Tricuspid valve: The leaflets are normal thickness. There is no evidence of stenosis. There is mild-moderate regurgitation. Pulmonic valve: The leaflets are normal thickness. There is no evidence of stenosis. There is moderate to severe regurgitation. Aorta: Aortic root: The aortic root is appears normal. Ascending aorta: The ascending aorta is mildly dilated. Aortic arch: The aortic arch is appears normal. Pericardium: There is no significant pericardial effusion. Pulmonary arteries: The main pulmonary artery is dilated. Systolic pressure is at the upper limits of normal. Pulmonary artery pressure may be underestimated Systemic veins: Inferior vena cava: The vessel is dilated. There is (< 50%) respiratory change in the IVC dimension. Measurements Left ventricle Value Ref Aortic valve Value Ref EARL, LAX 4.6 cm 4.2 - 5.8 Sherry diam, ED 2.1 cm ----- ESD, LAX 3.3 cm 2.5 - 4.0 Peak v, S 1.24 m/sec ----- FS, LAX 29 % 25 - 43 Peak grad, S 6.0 mm Hg ----- PW, ED, LAX 1.0 cm 0.6 - 1.0 E', lat sherry, TDI 16.9 cm/sec >=10.0 Mitral valve Value Ref E/e', lat sherry, 7 Peak E 1.17 m/sec ----- TDI Decel time 161 ms ----- E', med sherry, TDI 9.1 cm/sec >=7.0 PHT 86 ms --- -- E/e', med sherry, 13 Mean grad, D 3.0 mm Hg ----- TDI Peak grad, D 6.0 mm Hg ----- E', avg, TDI 13.0 cm/sec MVA, PHT 2.5 cm^2 ----- E/e', avg, TDI 9 <=14 Pulmonic valve Value Ref LVOT Value Ref Peak v, S 0.99 m/sec ----- Peak gilbert, S 0.84 m/sec Peak grad, S 4.0 mm Hg ----- Ventricular septum Value Ref Tricuspid valve Value Ref IVS, ED (H) 1.2 cm 0.6 - 1.0 TR peak v 2.31 m/sec <=2.8 Peak RV-RA grad, S 21 mm Hg ----- Right ventricle Value Ref EARL, LAX 4.4 cm Aortic root Value Ref Pressure, S 36 mm Hg Root diam 3.0 cm <4.1 Left atrium Value Ref Ascending aorta Value Ref AP dim, ES (H) 4.70 cm 3.00 - AAo AP diam, S 3.7 cm ----- 4.00 ML dim, A4C 4.6 cm Pulmonary artery Value Ref SI dim, A4C 5.9 cm Pressure, S 32.0 mm Hg ----- Vol/bsa, ES, A/L (H) 51 ml/m^2 16 - 34 Inferior vena cava Value Ref Right atrium Value Ref Diam 2.2 cm ----- SI dim, ES (H) 6.2 cm 3.4 - 5.3 ML dim, ES, A4C 4.3 cm 2.6 - 4.4 Estimated RAP 15 mm Hg Legend: (L) and (H) mely values outside specified reference range. Prepared and electronically signed by Susie Chatman MD 07/12/2019 16:37
--- NOTE | 2019-07-12 16:54 | CONS ---
CC: Hospitalist Service; Dr. Lincoln Javier CONSULTATION REPORT: DATE OF CONSULT: 07/12/19 REASON FOR CONSULT: Narrow and wide complex tachycardia. HISTORY OF PRESENT ILLNESS: The patient is an 84-year-old patient who followed by my partner, Dr. Jerome Lebron, with known atherosclerotic heart disease. He underwent elective hip surgery yesterday and postoperative period was complicated by narrow complex tachycardia alternating with wide complex tachycardia. The patient tells me he has had a history of rhythm problems before and AFib is listed in his past medical history and he used to feel it he says. At this time , he is completely unaware of any rhythm problems. He denies chest pain, pressure, heaviness, palpitations, or racing of the heart. No pounding. No dizziness. PAST MEDICAL HISTORY: 1. The patient has a past cardiac history of coronary artery disease, status post bypass surgery in May 2004 (FAIR to the LAD, saphenous vein graft to OM1 and saphenous vein graft to PDA). Repeat bypass surgery in April 2010 ( SHUKRI to the LAD and first diagonal and saphenous vein graft to the PDA). 2. Paroxysmal AFib. 3. Supraventricular tachycardia. 4. Hypertension. 5. Dyslipidemia. 6. Degenerative arthritis. 7. GERD. 8. Reflux. 9. Renal insufficiency. PAST SURGICAL HISTORY: Includes: 1. Bypass surgery x2. 2. Bilateral shoulder replacements. 3. Right total hip arthroplasty. 4. Hernia repair. MEDICATIONS: Current inpatient medications include: 1. Tylenol p.r.n. 2. Zyloprim 300 mg a day. 3. Norvasc 5 mg a day. 4. Eliquis 2.5 mg b.i.d. 5. Lipitor 40 mg b.i.d. 6. Dulcolax p.r.n. 7. Kefzol 1 g q.8 hours. 8. Celexa 20 mg a day. 9. Flexeril 10 mg q.6 hours p.r.n. 10. Diltiazem drip. 11. Benadryl p.r.n. 12. Colace. 13. HydroDIURIL 12.5 mg a day. 14. Lactated Ringer's. 15. Lactulose p.r.n. 16. Lisinopril 20 mg a day. 17. Milk of magnesia p.r.n. 18. Toprol-XL 50 mg in the morning and 100 mg at night. 19. Morphine sulfate p.r.n. 20. Theragran 1 daily. 21. Zofran p.r.n. nausea. 22. Oxycodone p.r.n. pain. 23. Percocet 5/325 p.r.n. pain. 24. Protonix 40 mg a day. 25. MiraLAX p.r.n. 26. Restoril 15 mg q.h.s. p.r.n. insomnia. 27. Tramadol 50 mg q.6 hours p.r.n. pain. ALLERGIES: No known drug allergies. FAMILY HISTORY: Positive for heart disease, cancer and diabetes. SOCIAL HISTORY: The patient lives independently. Nonsmoker. No recreational drug use. 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 REVIEW OF SYSTEMS: The patient denies pain, orthopnea, chest pain, palpitations , racing of the heart, fevers, chills, sweats, or indigestion. All other 14- point review of systems was negative. PHYSICAL EXAM: He is 5 feet 3 inches, weighs 220 pounds with a BMI of 39. Vitals: Blood pressure 102/73, pulse is 103, oxygen saturation 94% on room air, respiratory rate is 22, temperature 99.9. General Appearance: Short overweight male, sitting in ICU, in no acute distress. Psychologically, pleasant. Neurologically, awake, alert, oriented to person and place. Neck: Thick without appreciable increase in JVP. Breath sounds mildly diminished in the bases. Coronary: S1, S2, regular, but tachycardic. Abdomen: Nontender, active bowel sounds. Lower extremity braces on, free of edema. Skin: Free of cyanosis or rashes. DIAGNOSTIC STUDIES/LAB DATA: White count 11.4, hematocrit 29, platelets 80. Sodium 136, potassium 4.4, chloride 105, bicarb 24. BUN 27, creatinine 1.37. Glucose 138, magnesium 1.3. A 12-lead ECG from 4 in the morning on 07/12/19 shows a narrow complex regular tachycardia with alternating with what looks like a PVC and runs of monomorphic ventricular tachycardia, regular, possibly rate related bundle. When compared with his most recent ECG in our office on 03/07/19, this replaces normal sinus rhythm with an incomplete right bundle branch block and flattened T-waves. Echo 2016 showing an ejection fraction of 60% to 65% with restrictive diastolic dysfunction, [id number] aortic insufficiency and borderline hypertension and dilated ascending aorta 4.4 cm. Monitor strips consistent with supraventricular tachycardia, possible atypical flutter, but not confirmed versus SVT. Adenocard administered: ? atypical futter waves seen, inconclusive. Did not break the rhythym. IMPRESSION: In summary, Mr. Traore is an 84-year-old gentleman who has had 2 bypasses, atherosclerotic risk of hypertension, dyslipidemia, hyperglycemia, centripetal obesity, former smoking and family history. He underwent left total knee arthroplasty on 07/11/19 and his postoperative period is complicated by supraventricular tachycardia, either SVT or atypical flutter as it is regular with intermittent wide complex tachycardia. There is a differential of monomorphic ventricular tachycardia versus SVT with aberrancy. Contributing factors in addition to surgery could likely include hypomagnesemia and he would be a risk for sleep apnea as this occurred in the middle of the night. We have been repleting him with magnesium. I agree with beta- hortencia and diltiazem gtt for rate control (and possible rhythm control if VT). Consider overnight oximeter to see if he desaturates/contribution of hypoxia, possible LIUDMILA. I do think he should be anticoagulated as if this is flutter and not SVT that would increase his stroke risk, he needs his Eliquis increased from DVT prevention to 5 mg BID for Afib/flutter and stroke prevention. Because of his elevated white count and low-grade fevers, I think we should add a chest x-ray to ensure no pneumonia. Urinalysis was sent today and was unremarkable with respect to infection. If he does not convert on his own with electrolyte replacement, we could consider electrical cardioversion and if necessary adding an antiarrhythmic, possibly sotalol, but would need to calculate creatinine clearance and work with renal doses. Other options would include Multaq or amiodarone. Addendum: echo done and the patient's EF remains normal. This is reassuring regarding wide complex tachycardia. Plan as above. [id number]/[facility] #: [id number] [facility]
[2019-07-12 16:59] LABS: Magnesium 2.9 mg/dL (1.9-2.7)
[2019-07-12] MEDS ORDERED: Adenosine* 3 MG/ML VIAL IV PUSH ONE (17:54)
[2019-07-12 17:59] LABS: Troponin I 0.03 ng/mL (<0.03)
[2019-07-12] MEDS: Allopurinol TAB* 300 MG PO SCH (18:45)
[2019-07-12] MEDS: Atorvastatin* 40 MG TAB PO SCH (20:36)
[2019-07-12] MEDS: Apixaban* 5 MG TAB PO SCH (20:36)
[2019-07-12] MEDS: NS 0.9% 1000 ML** 1,000 ML IV SCH (22:51)
[2019-07-12 23:46] LABS: Troponin I 0.03 ng/mL (<0.03)
[2019-07-13] MEDS ORDERED: NS 0.9% 500 ML* 500 ML IV ONE (00:48)
[2019-07-13 04:46] LABS: Hematocrit 25 % (42-52); Hemoglobin 8.5 g/dL (14.0-18.0); Mean Corpuscular HGB Conc 34 g/dL (31-36); Mean Corpuscular Hemoglobin 37 pg (27-31); Mean Corpuscular Volume 107 fL (80-94); Red Blood Count 2.33 10^6 /uL (4.18-5.48); Red Cell Distribution Width 15 % (10-15); White Blood Count 10.1 10^3/uL (3.5-10.8)
[2019-07-13 04:47] LABS: ABS Eosinophils 0.1 10^3/ul (0-0.6); ABS Lymphocytes 2.7 10^3/ul (1.0-4.8); ABS Monocytes 1.1 10^3/ul (0-0.8); ABS Neutrophils 6.1 10^3/ul (1.5-7.7); Eosinophil % 1.3 %; Lymphocyte % 26.7 %
[2019-07-13 05:01] LABS: ALT 6 U/L (7-52); AST 23 U/L (13-39); Albumin 2.6 g/dL (3.2-5.2); Albumin/Globulin Ratio 1.5 (1-3); Alkaline Phosphatase 38 U/L (34-104); Anion Gap 3 mmol/L (2-11); BUN/Creatinine Ratio 19.7 (8-20); Blood Urea Nitrogen 26 mg/dL (6-24); CO2 Carbon Dioxide 25 mmol/L (22-32); Calcium 6.9 mg/dL (8.6-10.3); Chloride 109 mmol/L (101-111); EGFR African American 62.5 (>60); EGFR Non-African American 51.7 (>60); Globulin 1.7 g/dL (2-4); Glucose 107 mg/dL (70-100); Magnesium 2.3 mg/dL (1.9-2.7); Potassium 3.5 mmol/L (3.5-5.0); Sodium 137 mmol/L (135-145); Total Protein 4.3 g/dL (6.4-8.9)
[2019-07-13] MEDS: Acetaminophen TAB* 325 MG PO SCH ×3 (05:04→21:58)
[2019-07-13 05:12] LABS: Mean Platelet Volume 9.1 fL (7.4-10.4); Platelet Count 69 10^3/uL (150-450)
[2019-07-13 05:19] LABS: Troponin I 0.03 ng/mL (<0.03)
[2019-07-13] MEDS: NS 0.9% 1000 ML** 1,000 ML IV SCH (06:06)
[2019-07-13] MEDS: Metoprolol Succinate XL TAB* 50 MG PO SCH (07:45)
[2019-07-13] MEDS: Vitamin THERAPEUTIC TAB PO SCH (08:08)
[2019-07-13] MEDS: Pantoprazole TAB * 40 MG TAB PO SCH (08:08)
[2019-07-13] MEDS: Apixaban* 5 MG TAB PO SCH (08:08)
[2019-07-13] MEDS: Citalopram TAB* 20 MG PO SCH (08:08)
[2019-07-13] MEDS: Docusate CAP* 100 MG PO SCH ×2 (08:08→21:59)
[2019-07-13] MEDS: Magnesium Hydroxide LIQ* 30 ML UDC PO SCH ×2 (08:08→21:57)
--- NOTE | 2019-07-13 09:32 | PN ---
Progress Note - Progress Note Date of Service: 07/13/19 SOAP: Subjective: Pt. is alert, denies chest pain, heart palpitations or SOB. He reports left knee pain is improving. Objective: Vital Signs: Temp Pulse Resp BP Pulse Ox 99.1 F 110 18 104/61 94 07/13/19 09:01 07/13/19 09:01 07/13/19 09:01 07/13/19 09:01 07/13/19 09:01 Laboratory Results - last 24 hr 07/12/19 07/12/19 07/12/19 11:58 16:31 23:01 WBC RBC Hgb Hct MCV MCH MCHC RDW Plt Count MPV Neut % (Auto) Lymph % (Auto) [place] % (Auto) Eos % (Auto) Baso % (Auto) Absolute Neuts (auto) Absolute Lymphs (auto) Absolute Monos (auto) Absolute Eos (auto) Absolute Basos (auto) Absolute Nucleated RBC Nucleated RBC % Sodium Potassium Chloride Carbon Dioxide Anion Gap BUN Creatinine Est GFR ( Amer) Est GFR (Non-Af Amer) BUN/Creatinine Ratio Glucose Calcium Magnesium 2.9 H Total Bilirubin AST ALT Alkaline Phosphatase Troponin I 0.03 H* 0.03 H* Total Protein Albumin Globulin Albumin/Globulin Ratio Urine Color Yellow Urine Appearance Cloudy Urine pH 5.0 Ur Specific [place] 1.021 Urine Protein Negative Urine Ketones Negative Urine Blood 2+ A Urine Nitrate Negative Urine Bilirubin Negative Urine Urobilinogen Negative Ur Leukocyte Esterase Negative Urine WBC (Auto) Trace(0-5/hpf) Urine RBC (Auto) 3+(>10/hpf) A Urine Bacteria Absent Hyaline Casts Present A Urine Glucose Negative 07/13/19 07/13/19 04:35 04:35 WBC 10.1 RBC 2.33 L Hgb 8.5 L Hct 25 L MCV 107 H MCH 37 H MCHC 34 RDW 15 Plt Count 69 L MPV 9.1 Neut % (Auto) 61.0 Lymph % (Auto) 26.7 Overton % (Auto) 10.7 Eos % (Auto) 1.3 Baso % (Auto) 0.3 Absolute Neuts (auto) 6.1 Absolute Lymphs (auto) 2.7 Absolute Monos (auto) 1.1 H Absolute Eos (auto) 0.1 Absolute Basos (auto) 0.0 Absolute Nucleated RBC 0.0 Nucleated RBC % 0.0 Sodium 137 Potassium 3.5 Chloride 109 Carbon Dioxide 25 Anion Gap 3 BUN 26 H Creatinine 1.32 H Est GFR ( Amer) 62.5 Est GFR (Non-Af Amer) 51.7 BUN/Creatinine Ratio 19.7 Glucose 107 H Calcium 6.9 L Magnesium 2.3 Total Bilirubin 0.50 AST 23 ALT 6 L Alkaline Phosphatase 38 Troponin I 0.03 H* Total Protein 4.3 L Albumin 2.6 L Globulin 1.7 L Albumin/Globulin Ratio 1.5 Urine Color Urine Appearance Urine pH Ur Specific [place] Urine Protein Urine Ketones Urine Blood Urine Nitrate Urine Bilirubin Urine Urobilinogen Ur Leukocyte Esterase Urine WBC (Auto) Urine RBC (Auto) Urine Bacteria Hyaline Casts Urine Glucose LLE - dressing changed, mod effusion, inc c/d/i with no active drainage. distally nvi. Assessment: 84 yo M pod 2 s/p LTKA - postop tachycardia and irregular rhythm. Echo and cardiac consult, elevated troponins. Plan: Magnesium corrected. HR approx 110-115. Pt. is asymptomatic Echo with unchanged EF Appreciate hospitalist and cardiology care for my patient. PT - wbat. OOBTC for meals. CXR shows possible effusion/atelectasis eliquis 5mg bid
[2019-07-13] MEDS ORDERED: Furosemide IV* 10 MG/ML VIAL (40 MG) IV SLOW PU ONE (12:46)
[2019-07-13] MEDS ORDERED: Metoprolol Tartrate TAB* 25 MG PO SCH (13:00)
--- NOTE | 2019-07-13 13:09 | PN ---
Subjective Date of Service: 07/13/19 Interval History: Patient seen and examined. Feeling well, BP soft overnight, symptomatic. HR with relatively good control. Denies chest pain, no SOB, surgical pain well controlled. No fevers or chills. Objective Active Medications: Acetaminophen (Tylenol Tab*) 975 mg PO Q8HR [facility] Last Admin: 07/13/19 05:04 Dose: 650 mg Albuterol/Ipratropium (Duoneb (Albuterol 2.5 Mg/Ipratropium 0.5 Mg)) 1 neb INH Q4H PRN PRN Reason: SOB/WHEEZING Allopurinol (Zyloprim Tab*) 300 mg PO QPM [facility] Last Admin: 07/12/19 18:45 Dose: 300 mg Apixaban (Eliquis*) 2.5 mg PO BID [facility] Atorvastatin Calcium (Lipitor*) 40 mg PO BEDTIME [facility] Last Admin: 07/12/19 20:36 Dose: 40 mg Bisacodyl (Dulcolax Supp*) 10 mg ND DAILY PRN PRN Reason: CONSTIPATION Citalopram Hydrobromide (Celexa Tab*) 20 mg PO DAILY [facility] Last Admin: 07/13/19 08:08 Dose: 20 mg Cyclobenzaprine HCl (Flexeril Tab*) 10 mg PO Q6H PRN PRN Reason: SPASMS Last Admin: 07/11/19 22:29 Dose: 10 mg Diphenhydramine HCl (Benadryl Iv*) 25 mg IV Q6H PRN PRN Reason: PRURITIS Diphenhydramine HCl (Benadryl Po*) 25 mg PO Q6H PRN PRN Reason: PRURITIS Docusate Sodium (Colace Cap*) 100 mg PO BID [facility] Last Admin: 07/13/19 08:08 Dose: 100 mg Lactulose (Lactulose*) 30 ml PO BID PRN PRN Reason: CONSTIPATION Magnesium Hydroxide (Milk Of Magnesia Liq*) 30 ml PO BID [facility] Last Admin: 07/13/19 08:08 Dose: Not Given Magnesium Hydroxide (Milk Of Magnesia Liq*) 30 ml PO Q6H PRN PRN Reason: CONSTIPATION Metoprolol Tartrate (Lopressor Iv*) 5 mg IV Q6H PRN PRN Reason: HR >120 Last Admin: 11/27/19 11:28 Dose: 5 mg Metoprolol Tartrate (Lopressor Tab*) 25 mg PO QID [facility] Morphine Sulfate (Morphine Inj (Syringe))*) 2 mg IV Q4H PRN PRN Reason: Pain - Unrelieved Last Admin: 07/11/19 20:40 Dose: 2 mg Multivitamins (Theragran Tab*) 1 tab PO DAILY [facility] Last Admin: 07/13/19 08:08 Dose: 1 tab Ondansetron HCl (Zofran Inj*) 4 mg IV Q6H PRN PRN Reason: NAUSEA Last Admin: 07/11/19 20:40 Dose: 4 mg Ondansetron HCl (Zofran Odt Tab*) 4 mg PO Q6H PRN PRN Reason: NAUSEA Oxycodone HCl (Roxycodone Tab*) 5 mg PO Q4H PRN PRN Reason: Pain - Breakthrough Last Admin: 07/12/19 02:33 Dose: 5 mg Oxycodone/Acetaminophen (Percocet 5/325 Tab*) 1 tab PO Q4H PRN PRN Reason: PAIN - MODERATE Last Admin: 07/12/19 18:45 Dose: 1 tab Oxycodone/Acetaminophen (Percocet 5/325 Tab*) 2 tab PO Q4H PRN PRN Reason: PAIN - SEVERE Last Admin: 07/12/19 12:43 Dose: 2 tab Pantoprazole Sodium (Protonix Tab*) 40 mg PO QAM [facility] Last Admin: 07/13/19 08:08 Dose: 40 mg Polyethylene Glycol/Electrolytes (Miralax*) 17 gm PO DAILY PRN PRN Reason: Constipation Temazepam (Restoril Cap*) 15 mg PO BEDTIME PRN PRN Reason: INSOMNIA Tramadol HCl (Ultram*) 50 mg PO Q6H PRN PRN Reason: PAIN - MODERATE Vital Signs - 8 hr 07/13/19 07/13/19 07/13/19 05:30 06:00 06:30 Temperature 99.1 F 99.1 F 99.0 F Pulse Rate 110 111 108 Respiratory 16 14 13 Rate Blood Pressure 105/74 94/64 89/67 (mmHg) O2 Sat by Pulse 95 96 97 Oximetry 07/13/19 07/13/19 07/13/19 07:00 07:30 08:00 Temperature 98.8 F 98.6 F 98.6 F Pulse Rate 109 108 107 Respiratory 16 13 14 Rate Blood Pressure 86/63 86/64 104/74 (mmHg) O2 Sat by Pulse 96 97 96 Oximetry 07/13/19 07/13/19 07/13/19 08:30 09:00 09:01 Temperature 98.8 F 99.1 F 99.1 F Pulse Rate 111 111 110 Respiratory 12 14 18 Rate Blood Pressure 114/67 104/61 (mmHg) O2 Sat by Pulse 90 96 94 Oximetry 07/13/19 07/13/19 07/13/19 09:30 10:00 10:01 Temperature 99.3 F 99.5 F 99.5 F Pulse Rate 112 112 111 Respiratory 11 18 17 Rate Blood Pressure 97/72 84/64 91/63 (mmHg) O2 Sat by Pulse 96 97 99 Oximetry 07/13/19 07/13/19 07/13/19 10:30 11:00 11:30 Temperature 99.3 F 99.3 F 99.3 F Pulse Rate 110 111 111 Respiratory 11 12 13 Rate Blood Pressure 105/66 102/67 99/77 (mmHg) O2 Sat by Pulse 96 95 97 Oximetry Oxygen Devices in Use Now: Nasal Cannula Appearance: alert, NAD Eyes: PERRLA Ears/Nose/Mouth/Throat: NL Teeth, Lips, Gums, Mucous Membranes Moist Neck: NL Appearance and Movements; NL JVP, Trachea Midline Respiratory: Symmetrical Chest Expansion and Respiratory Effort, - - wheeze, diminished Cardiovascular: NL Sounds; No Murmurs; No JVD, No Edema Abdominal: NL Sounds; No Tenderness; No Distention Extremities: No Clubbing, Cyanosis, - - dressing CDI Neurological: Alert and Oriented x 3, NL Muscle Strength and Tone Nutrition: Taking PO's Result Diagrams: 07/13/19 04:35 07/13/19 04:35 Microbiology and Other Data: Microbiology 07/12/19 11:58 Urine Culture - Final Urine No Growth (<1,000 CFU/mL) 07/12/19 10:03 Nasal Screen MRSA (PCR) - Final Nasal Mrsa Not Detected Assess/Plan/Problems-Billing Assessment: This is an 84 year old male with hx of CAD/CABG, afib, HTN, gout, GERD and OA that presented to [facility] for elective left TKA that has had post-operative episodes of afib with RVR and Vtach vs SVT on 07/12/19. - Patient Problems (1) V-tach Code(s): I47.2 - VENTRICULAR TACHYCARDIA SNOMED Code(s): 64541378 Comment: - Reviewed strips again with Dr. Delgado today, still questionable whether runs were VT versus SVT versus afib with aberrancy - PVCs only last 24 hours with no further runs since lytes corrected - Troponinemia in the presence of demand ischemia 2/2 tachycardia, no chest pain or other anginal equivalents with intact LV function per ECHO above, no indication to trend troponin - Patient remains asymptomatic - Continue tele (2) Atrial fibrillation with RVR Code(s): I48.91 - UNSPECIFIED ATRIAL FIBRILLATION SNOMED Code(s): 707349465178574 Comment: - Not on AC outpatient - Pressures soft on cardizem drip overnight which is now DCd - Transition to oral metoprolol 25mg QID, hold for SBP<100 - Decrease eliquis to 2.5BID, platelets lower today, renal function slightly elevated - Stop IVF 2/2 wheeze, duonebs PRN - No definitive onset of afib, per cardiology will hold off on any plans for cardioversion at this time and focus on rate control and optimization (3) Status post left knee replacement Code(s): Z96.652 - PRESENCE OF LEFT ARTIFICIAL KNEE JOINT SNOMED Code(s): 9729413994331 Comment: - POD2 - POC as per ortho - Pain control PRN - May be OOB to chair with passive ROM with PT (4) Thrombocytopenia Code(s): D69.6 - THROMBOCYTOPENIA, UNSPECIFIED SNOMED Code(s): 092083996 Comment: - Appears to have had low platelets since 2016, etiology unclear, mildly supressed H&H as well pre-op - Continue to follow, will lower eliquis to 2.5BID, will have to re-evaluate if PLTS drop below 50 (5) History of coronary artery disease Code(s): Z86.79 - PERSONAL HISTORY OF OTHER DISEASES OF THE CIRCULATORY SYSTEM SNOMED Code(s): 367848332 Comment: - With hx of CABG, sees Dr. Lebron outpatient - Continue statin and BB (6) HTN (hypertension) Code(s): I10 - ESSENTIAL (PRIMARY) HYPERTENSION SNOMED Code(s): 48355218 Comment: - Stable on HCTZ and lisinopril (7) Gout Code(s): M10.9 - GOUT, UNSPECIFIED SNOMED Code(s): 69243698 Comment: - Not in flare - Continue allopurinol (8) GERD (gastroesophageal reflux disease) Code(s): K21.9 - GASTRO-ESOPHAGEAL REFLUX DISEASE WITHOUT ESOPHAGITIS SNOMED Code(s): 164431329 Comment: - PPI (9) DVT prophylaxis Code(s): Z29.9 - ENCOUNTER FOR PROPHYLACTIC MEASURES, UNSPECIFIED SNOMED Code( s): 456676770 Comment: - Continue eliquis 2.5 BID, discussed with Dr. Delgado given afib (10) Full code status Code(s): Z78.9 - OTHER SPECIFIED HEALTH STATUS SNOMED Code(s): 905914456 Status and Disposition: Inpatient, transfer back to floor/telemetry. Condition: fair/improving.
[2019-07-13] MEDS: Metoprolol Tartrate TAB* 25 MG PO SCH ×2 (15:51→21:59)
[2019-07-13] MEDS ORDERED: Bisacodyl SUPP* 10 MG SUPP PR PRN (18:01)
[2019-07-13] MEDS: Allopurinol TAB* 300 MG PO SCH (19:38)
[2019-07-13] MEDS ORDERED: Potassium Chlor TAB* 20 MEQ TAB.ER PO ONE (21:00)
[2019-07-13] MEDS ORDERED: Lactated Ringers 1000 ML Bag* 1,000 ML IV ONE (21:14)
[2019-07-13 21:57] LABS: Hematocrit 26 % (42-52); Hemoglobin 8.8 g/dL (14.0-18.0)
[2019-07-13] MEDS: Apixaban* 2.5 MG TAB PO SCH (21:58)
[2019-07-13] MEDS: Atorvastatin* 40 MG TAB PO SCH (21:59)
[2019-07-13] MEDS: Albuterol/Ipratropium NEB.SOL* Albuterol 2.5 MG/Ipratropium 0.5 MG 3 ML INH PRN (23:11)
[2019-07-14 05:40] LABS: ABS Eosinophils 0.3 10^3/ul (0-0.6); ABS Monocytes 0.7 10^3/ul (0-0.8); ABS Neutrophils 4.7 10^3/ul (1.5-7.7); Eosinophil % 4.4 %; Hematocrit 22 % (42-52); Hemoglobin 7.5 g/dL (14.0-18.0); Lymphocyte % 25.9 %; Mean Corpuscular HGB Conc 35 g/dL (31-36); Mean Corpuscular Hemoglobin 37 pg (27-31); Mean Corpuscular Volume 107 fL (80-94); Mean Platelet Volume 9.5 fL (7.4-10.4); Platelet Count 67 10^3/uL (150-450); Red Blood Count 2.01 10^6 /uL (4.18-5.48); Red Cell Distribution Width 15 % (10-15); White Blood Count 7.8 10^3/uL (3.5-10.8)
[2019-07-14 05:47] LABS: Albumin 3.1 g/dL (3.2-5.2); Albumin/Globulin Ratio 1.5 (1-3); BUN/Creatinine Ratio 18.3 (8-20); Calcium 8.3 mg/dL (8.6-10.3); EGFR Non-African American 30.6 (>60); Globulin 2.1 g/dL (2-4); Potassium 4.2 mmol/L (3.5-5.0); Total Bilirubin 0.4 mg/dL (0.2-1.0); Total Protein 5.2 g/dL (6.4-8.9)
[2019-07-14] MEDS: Acetaminophen TAB* 325 MG PO SCH ×3 (07:11→22:28)
[2019-07-14] MEDS: Albuterol/Ipratropium NEB.SOL* Albuterol 2.5 MG/Ipratropium 0.5 MG 3 ML INH PRN ×2 (08:51→19:05)
--- NOTE | 2019-07-14 09:22 | PN ---
Progress Note - Progress Note Date of Service: 07/14/19 SOAP: Subjective: [Pt was seen sitting in chair today. He denies any chest pain, he does not feel short of breath at this time. ] Objective: General: Pt is alert and oriented. Mild wheezing at rest. LLE - dressing c/d/i. +df/pf. Calves soft and non tender distally nvi. Vital Signs Temp 98.1 F 07/13/19 19:27 Pulse 123 07/14/19 08:53 Resp 07/14/19 08:53 BP 103/64 07/14/19 07:30 Pulse Ox 98 07/14/19 08:53 Intake & Output 07/13/19 07/14/19 07/14/19 18:59 06:59 18:59 Intake Total 703 1380 Output Total 235 125 Balance 468 1255 Intake: IV Fluids 575 1372 LR 797 NS (0.9%) 575 575 Medicated IV 8 8 GEN - Diltiazem/Cardizem 8 8 Oral 120 Output: Urine 125 Gaytan 235 Other: # Bowel Movements 0 Assessment: 84 yo M pod 3 s/p LTKA - postop tachycardia and irregular rhythm. Echo and cardiac consult, elevated troponins. Plan: Magnesium corrected. HR approx 122 at rest, up to 155 when up with PT Pt. is asymptomatic Appreciate hospitalist and cardiology care for my patient. PT - wbat. OOBTC for meals. CXR shows possible effusion/atelectasis eliquis 5mg bid
[2019-07-14] MEDS: Citalopram TAB* 20 MG PO SCH (09:29)
[2019-07-14] MEDS: Apixaban* 2.5 MG TAB PO SCH ×2 (09:29→20:34)
[2019-07-14] MEDS: Metoprolol Tartrate TAB* 25 MG PO SCH ×2 (09:29→14:51)
[2019-07-14] MEDS: Pantoprazole TAB * 40 MG TAB PO SCH (09:30)
[2019-07-14] MEDS: Docusate CAP* 100 MG PO SCH ×2 (09:30→20:20)
[2019-07-14] MEDS: Magnesium Hydroxide LIQ* 30 ML UDC PO SCH ×2 (09:30→20:20)
[2019-07-14] MEDS: Vitamin THERAPEUTIC TAB PO SCH (09:30)
[2019-07-14] MEDS ORDERED: Amiodarone IV VIAL** 50 MG/ML 3 ML (150 MG) VIAL IV PUSH ONE ×2 (10:29→19:00)
[2019-07-14] MEDS ORDERED: Amiodarone 360 MG IVPREMIX* 360 MG/200 ML BAG IV ONE ×2 (14:48→14:52)
--- NOTE | 2019-07-14 15:40 | PN ---
Subjective Date of Service: 07/14/19 Interval History: Called uregently to bedside after initially seeing patient this AM. Patient with rhythm changes and some confusion. Periods of persistent tachycardia and hypotension overnight and this morning. Rates into the 150's when staff attempted to get the patient OOB to chair. Rhythm was again wide complex runs of VT. Just prior to rhythm change, patient became acutely confused. Patient is now alert, rate remains in afib with RVR with nonsustained VT. Objective Active Medications: Acetaminophen (Tylenol Tab*) 975 mg PO Q8HR [facility] Last Admin: 07/14/19 14:54 Dose: 975 mg Albuterol/Ipratropium (Duoneb (Albuterol 2.5 Mg/Ipratropium 0.5 Mg)) 1 neb INH Q4H PRN PRN Reason: SOB/WHEEZING Last Admin: 07/14/19 08:51 Dose: 1 neb Allopurinol (Zyloprim Tab*) 300 mg PO QPM [facility] Last Admin: 07/13/19 19:38 Dose: 300 mg Apixaban (Eliquis*) 2.5 mg PO BID [facility] Last Admin: 07/14/19 09:29 Dose: 2.5 mg Atorvastatin Calcium (Lipitor*) 40 mg PO BEDTIME [facility] Last Admin: 07/13/19 21:59 Dose: 40 mg Bisacodyl (Dulcolax Supp*) 10 mg [place] DAILY PRN PRN Reason: CONSTIPATION Citalopram Hydrobromide (Celexa Tab*) 20 mg PO DAILY [facility] Last Admin: 07/14/19 09:29 Dose: 20 mg Cyclobenzaprine HCl (Flexeril Tab*) 10 mg PO Q6H PRN PRN Reason: SPASMS Last Admin: 07/11/19 22:29 Dose: 10 mg Docusate Sodium (Colace Cap*) 100 mg PO BID [facility] Last Admin: 07/14/19 09:30 Dose: 100 mg Amiodarone HCl (Nexterone 360 Mg/200 Ml Ivpremix*) 360 mg in 200 mls @ 33.333 mls/hr IV ONCE ONE Stop: 07/14/19 20:47 Last Admin: 07/14/19 14:55 Dose: 33.333 mls/hr Lactulose (Lactulose*) 30 ml PO BID PRN PRN Reason: CONSTIPATION Magnesium Hydroxide (Milk Of Magnesia Liq*) 30 ml PO BID [facility] Last Admin: 07/14/19 09:30 Dose: Not Given Multivitamins (Theragran Tab*) 1 tab PO DAILY [facility] Last Admin: 07/14/19 09:30 Dose: 1 tab Ondansetron HCl (Zofran Inj*) 4 mg IV Q6H PRN PRN Reason: NAUSEA Last Admin: 07/11/19 20:40 Dose: 4 mg Ondansetron HCl (Zofran Odt Tab*) 4 mg PO Q6H PRN PRN Reason: NAUSEA Oxycodone/Acetaminophen (Percocet 5/325 Tab*) 1 tab PO Q4H PRN PRN Reason: PAIN - MODERATE Last Admin: 07/12/19 18:45 Dose: 1 tab Oxycodone/Acetaminophen (Percocet 5/325 Tab*) 2 tab PO Q4H PRN PRN Reason: PAIN - SEVERE Last Admin: 07/12/19 12:43 Dose: 2 tab Pantoprazole Sodium (Protonix Tab*) 40 mg PO QAM [facility] Last Admin: 07/14/19 09:30 Dose: 40 mg Temazepam (Restoril Cap*) 15 mg PO BEDTIME PRN PRN Reason: INSOMNIA Vital Signs - 8 hr 07/14/19 07/14/19 07/14/19 08:00 08:30 08:53 Pulse Rate 110 130 123 Respiratory 17 18 11 Rate Blood Pressure 91/71 117/80 (mmHg) O2 Sat by Pulse 97 95 98 Oximetry 07/14/19 07/14/19 07/14/19 09:00 09:01 09:30 Pulse Rate 116 119 118 Respiratory 17 17 16 Rate Blood Pressure 99/63 103/64 (mmHg) O2 Sat by Pulse 97 97 97 Oximetry 07/14/19 07/14/19 07/14/19 10:00 10:30 11:00 Pulse Rate 117 114 112 Respiratory 12 18 15 Rate Blood Pressure 84/59 84/72 101/66 (mmHg) O2 Sat by Pulse 94 96 93 Oximetry 07/14/19 07/14/19 07/14/19 11:31 12:00 12:30 Pulse Rate 117 121 121 Respiratory 17 16 21 Rate Blood Pressure 101/70 90/69 102/70 (mmHg) O2 Sat by Pulse 87 95 90 Oximetry 07/14/19 07/14/19 07/14/19 13:00 13:05 13:14 Pulse Rate 126 138 Respiratory 30 23 14 Rate Blood Pressure 92/66 96/68 108/85 (mmHg) O2 Sat by Pulse 94 95 Oximetry 07/14/19 07/14/19 07/14/19 13:25 13:31 13:41 Pulse Rate 145 146 118 Respiratory 19 15 15 Rate Blood Pressure 131/54 108/71 98/59 (mmHg) O2 Sat by Pulse 100 97 98 Oximetry 07/14/19 07/14/19 07/14/19 13:45 13:50 14:00 Pulse Rate 107 110 112 Respiratory 12 18 13 Rate Blood Pressure 97/74 113/68 (mmHg) O2 Sat by Pulse 98 94 95 Oximetry 07/14/19 07/14/19 07/14/19 14:04 14:05 14:10 Pulse Rate 107 106 110 Respiratory 19 18 22 Rate Blood Pressure 121/69 108/72 116/70 (mmHg) O2 Sat by Pulse 96 93 96 Oximetry Oxygen Devices in Use Now: Nasal Cannula Appearance: pale, no distress Eyes: PERRLA Ears/Nose/Mouth/Throat: Mucous Membranes Moist Neck: NL Appearance and Movements; NL JVP Respiratory: Symmetrical Chest Expansion and Respiratory Effort, Clear to Auscultation Cardiovascular: NL Sounds; No Murmurs; No JVD, No Edema, - - irregular, tachycardic Abdominal: NL Sounds; No Tenderness; No Distention, No Hepatosplenomegaly Extremities: No Edema, No Clubbing, Cyanosis, - - left knee dressing CDI Skin: No Rash or Ulcers Neurological: - - now A&Ox3, briefly confused prior Nutrition: Taking PO's Result Diagrams: 07/14/19 05:13 07/14/19 05:13 Microbiology and Other Data: Microbiology 07/12/19 11:58 Urine Culture - Final Urine No Growth (<1,000 CFU/mL) 07/12/19 10:03 Nasal Screen MRSA (PCR) - Final Nasal Mrsa Not Detected Assess/Plan/Problems-Billing Assessment: This is an 84 year old male with hx of CAD/CABG, afib, HTN, gout, GERD and OA that presented to [facility] for elective left TKA that has had post-operative episodes of afib with RVR and Vtach vs SVT on 11/27/19. - Patient Problems (1) V-tach Code(s): I47.2 - VENTRICULAR TACHYCARDIA SNOMED Code(s): 45121004 Comment: - With hypotension and period of confusion - No response to adenosine, alternating with afib/flutter with RVR - EKG obtained, runs are wide complex and do appear to be VT - Amio load 150mg pushed, drip initiated at 1mg/min for 6 hours, drop to 0.5mg/ min for 18hours thereafter. Will transition to PO 400mg PO BID x4 days then 400mg daily - Troponinemia in the presence of demand ischemia 2/2 tachycardia, no chest pain or other anginal equivalents with intact LV function per ECHO above, no indication to trend troponin - Keep Mg>2 and K>4 - Continue tele - EKG with any further rhythm changes (2) Atrial fibrillation with RVR Code(s): I48.91 - UNSPECIFIED ATRIAL FIBRILLATION SNOMED Code(s): 171716436602854 Comment: - Not on AC outpatient - BPs remain soft and patient has mod-severe COPD, not much response with metoprolol 2/2 low BP; BP also remained low on cardizem drip - Continue amiodarone loading - No definitive onset of afib, per cardiology will hold off on any plans for cardioversion at this time and focus on rate control and optimization - Continue Eliquis at 2.5mg BID 2/2 renal function and low PLTS (3) Status post left knee replacement Code(s): Z96.652 - PRESENCE OF LEFT ARTIFICIAL KNEE JOINT SNOMED Code(s): 3891928767042 Comment: - POD3 - POC as per ortho - Pain control PRN - May be OOB to chair with passive ROM with PT (4) Thrombocytopenia Code(s): D69.6 - THROMBOCYTOPENIA, UNSPECIFIED SNOMED Code(s): 966652079 Comment: - Appears to have had low platelets since 2016, etiology unclear, mildly supressed H&H as well pre-op - Continue to follow, will lower eliquis to 2.5BID, will have to re-evaluate if PLTS drop below 50 (67 today) - Will be transfused one unit today, continue to monitor CBC (5) Anemia Code(s): D64.9 - ANEMIA, UNSPECIFIED SNOMED Code(s): 009126176 Comment: - Drop in H&H today, no hematoma or active bleeding, likely 2/2 renal disease ( AOCD), recent post-op and arrhythmias, one unit PRBCs ordered, may need second - Goal H&H >8&28, follow H&H 3 hours after transfusion (6) History of coronary artery disease Code(s): Z86.79 - PERSONAL HISTORY OF OTHER DISEASES OF THE CIRCULATORY SYSTEM SNOMED Code(s): 654827198 Comment: - With hx of CABG, sees Dr. Lebron outpatient - Continue statin and BB (7) HTN (hypertension) Code(s): I10 - ESSENTIAL (PRIMARY) HYPERTENSION SNOMED Code(s): 03255726 Comment: - Hypotensive, holding HCTZ and lisinopril (8) Gout Code(s): M10.9 - GOUT, UNSPECIFIED SNOMED Code(s): 91227345 Comment: - Not in flare - Continue allopurinol (9) GERD (gastroesophageal reflux disease) Code(s): K21.9 - GASTRO-ESOPHAGEAL REFLUX DISEASE WITHOUT ESOPHAGITIS SNOMED Code(s): 163423894 Comment: - PPI (10) DVT prophylaxis Code(s): Z29.9 - ENCOUNTER FOR PROPHYLACTIC MEASURES, UNSPECIFIED SNOMED Code( s): 044601667 Comment: - Continue eliquis 2.5 BID (11) Full code status Code(s): Z78.9 - OTHER SPECIFIED HEALTH STATUS SNOMED Code(s): 214989040 Status and Disposition: Inpatient, critical/guarded. Critical care time 75 minutes.
[2019-07-14 18:55] LABS: Hematocrit 28 % (42-52); Hemoglobin 9.4 g/dL (14.0-18.0)
[2019-07-14] MEDS ORDERED: Magnesium Sulfate 2 GM IV (Premix) IVPB ONE (19:00)
[2019-07-14] MEDS ORDERED: Magnesium Sulfate 2 GM IV* 2 GM/50 ML BAG ONE (19:01)
[2019-07-14] MEDS ORDERED: Amiodarone IV VIAL** 50 MG/ML 3 ML (150 MG) VIAL ONE (19:01)
[2019-07-14] MEDS: Allopurinol TAB* 300 MG PO SCH (19:07)
[2019-07-14] MEDS: Amiodarone 360 MG IVPREMIX* 360 MG/200 ML BAG IV SCH (20:16)
[2019-07-14] MEDS: Atorvastatin* 40 MG TAB PO SCH (20:20)
[2019-07-15] MEDS: Acetaminophen TAB* 325 MG PO SCH ×3 (05:38→21:17)
[2019-07-15 05:58] LABS: ABS Eosinophils 0.3 10^3/ul (0-0.6); ABS Lymphocytes 1.8 10^3/ul (1.0-4.8); ABS Monocytes 0.6 10^3/ul (0-0.8); ABS Neutrophils 4.6 10^3/ul (1.5-7.7); Eosinophil % 3.6 %; Hematocrit 27 % (42-52); Hemoglobin 9.1 g/dL (14.0-18.0); Lymphocyte % 25.1 %; Mean Corpuscular HGB Conc 34 g/dL (31-36); Mean Corpuscular Hemoglobin 35 pg (27-31); Mean Corpuscular Volume 105 fL (80-94); Mean Platelet Volume 8.4 fL (7.4-10.4); Nucleated Red Blood Cells % 0.1; Platelet Count 73 10^3/uL (150-450); Red Blood Count 2.58 10^6 /uL (4.18-5.48); Red Cell Distribution Width 16 % (10-15); White Blood Count 7.2 10^3/uL (3.5-10.8)
[2019-07-15 06:14] LABS: Albumin/Globulin Ratio 1.3 (1-3); BUN/Creatinine Ratio 19.5 (8-20); Calcium 8.5 mg/dL (8.6-10.3); EGFR African American 45.5 (>60); EGFR Non-African American 37.6 (>60); Globulin 2.3 g/dL (2-4); Magnesium 2.7 mg/dL (1.9-2.7); Potassium 4.2 mmol/L (3.5-5.0); Total Bilirubin 0.5 mg/dL (0.2-1.0); Total Protein 5.3 g/dL (6.4-8.9)
[2019-07-15] MEDS: Amiodarone 360 MG IVPREMIX* 360 MG/200 ML BAG IV SCH (07:58)
[2019-07-15] MEDS: Docusate CAP* 100 MG PO SCH ×2 (08:06→21:13)
[2019-07-15] MEDS: Vitamin THERAPEUTIC TAB PO SCH (08:06)
[2019-07-15] MEDS: Citalopram TAB* 20 MG PO SCH (08:07)
[2019-07-15] MEDS: Apixaban* 2.5 MG TAB PO SCH ×2 (08:07→21:14)
[2019-07-15] MEDS: Pantoprazole TAB * 40 MG TAB PO SCH (08:07)
[2019-07-15] MEDS: Magnesium Hydroxide LIQ* 30 ML UDC PO SCH ×2 (08:07→21:15)
[2019-07-15] MEDS ORDERED: Furosemide IV* 10 MG/ML VIAL (40 MG) IV ONE (09:05)
[2019-07-15] MEDS ORDERED: Sodium Phosphate ADULT ENEMA* 118 ml bottle PR ONE (09:11)
--- NOTE | 2019-07-15 11:10 | PN ---
Progress Note - Progress Note Date of Service: 07/15/19 SOAP: Subjective: Pt seen and examined at bedside. No complaint of pain. Had rhythm changes and confusion yesterday while sitting in chair. Feeling much better today. Vital Signs: Temp Pulse Resp BP Pulse Ox 98.9 F 110 44 133/90 97 07/15/19 07:43 07/15/19 09:00 07/15/19 09:00 07/15/19 09:00 07/15/19 09:00 Laboratory Last Values WBC 7.2 10^3/uL (3.5-10.8) 07/15/19 05:43 RBC 2.58 10^6 /uL (4.18-5.48) L 07/15/19 05:43 Hgb 9.1 g/dL (14.0-18.0) L 07/15/19 05:43 Hct 27 % (42-52) L 07/15/19 05:43 MCV 105 fL (80-94) H 07/15/19 05:43 MCH 35 pg (27-31) H 07/15/19 05:43 MCHC 34 g/dL (31-36) 07/15/19 05:43 RDW 16 % (10-15) H 07/15/19 05:43 Plt Count 73 10^3/uL (150-450) L 07/15/19 05:43 MPV 8.4 fL (7.4-10.4) 07/15/19 05:43 Neut % (Auto) 63.5 % 07/15/19 05:43 Lymph % (Auto) 25.1 % 07/15/19 05:43 [place] % (Auto) 7.6 % 07/15/19 05:43 Eos % (Auto) 3.6 % 07/15/19 05:43 Baso % (Auto) 0.2 % 07/15/19 05:43 Absolute Neuts (auto) 4.6 10^3/ul (1.5-7.7) 07/15/19 05:43 Absolute Lymphs (auto) 1.8 10^3/ul (1.0-4.8) 07/15/19 05:43 Absolute Monos (auto) 0.6 10^3/ul (0-0.8) 07/15/19 05:43 Absolute Eos (auto) 0.3 10^3/ul (0-0.6) 07/15/19 05:43 Absolute Basos (auto) 0.0 10^3/ul (0-0.2) 07/15/19 05:43 Absolute Nucleated RBC 0.0 10^3/ul 07/15/19 05:43 Nucleated RBC % 0.1 07/15/19 05:43 Sodium 134 mmol/L (135-145) L 07/15/19 05:43 Potassium 4.2 mmol/L (3.5-5.0) 07/15/19 05:43 Chloride 103 mmol/L (101-111) 07/15/19 05:43 Carbon Dioxide 28 mmol/L (22-32) 07/15/19 05:43 Anion Gap 3 mmol/L (2-11) 07/15/19 05:43 BUN 34 mg/dL (6-24) H 07/15/19 05:43 Creatinine 1.74 mg/dL (0.67-1.17) H 07/15/19 05:43 Est GFR ( Amer) 45.5 (>60) 07/15/19 05:43 Est GFR (Non-Af Amer) 37.6 (>60) 07/15/19 05:43 BUN/Creatinine Ratio 19.5 (8-20) 07/15/19 05:43 Glucose 132 mg/dL (70-100) H 07/15/19 05:43 Calcium 8.5 mg/dL (8.6-10.3) L 07/15/19 05:43 Magnesium 2.7 mg/dL (1.9-2.7) 07/15/19 05:43 Total Bilirubin 0.50 mg/dL (0.2-1.0) 07/15/19 05:43 AST 36 U/L (13-39) 07/15/19 05:43 ALT 10 U/L (7-52) 07/15/19 05:43 Alkaline Phosphatase 59 U/L (34-104) 07/15/19 05:43 Troponin I 0.03 ng/mL (<0.03) H* 07/13/19 04:35 Total Protein 5.3 g/dL (6.4-8.9) L 07/15/19 05:43 Albumin 3.0 g/dL (3.2-5.2) L 07/15/19 05:43 Globulin 2.3 g/dL (2-4) 07/15/19 05:43 Albumin/Globulin Ratio 1.3 (1-3) 07/15/19 05:43 Urine Color Yellow 07/12/19 11:58 Urine Appearance Cloudy 07/12/19 11:58 Urine pH 5.0 (5-9) 07/12/19 11:58 Ur Specific [place] 1.021 (1.010-1.030) 07/12/19 11:58 Urine Protein Negative (Negative) 07/12/19 11:58 Urine Ketones Negative (Negative) 07/12/19 11:58 Urine Blood 2+ (Negative) A 07/12/19 11:58 Urine Nitrate Negative (Negative) 07/12/19 11:58 Urine Bilirubin Negative (Negative) 07/12/19 11:58 Urine Urobilinogen Negative (Negative) 07/12/19 11:58 Ur Leukocyte Esterase Negative (Negative) 07/12/19 11:58 Urine WBC (Auto) Trace(0-5/hpf) (Absent) 07/12/19 11:58 Urine RBC (Auto) 3+(>10/hpf) (Absent) A 07/12/19 11:58 Urine Bacteria Absent (Absent) 07/12/19 11:58 Hyaline Casts Present (Absent) A 07/12/19 11:58 Urine Glucose Negative (Negative) 07/12/19 11:58 Blood Type A Negative 07/14/19 05:13 Antibody Screen Negative 07/14/19 05:13 Crossmatch See Detail 07/14/19 05:13 Objective: A&O x3, NAD Dressing C/D/I, Calves soft and nontender, +edema LLE, NVI Assessment: 84 yo male s/p Left TKA POD#4 - Postop tachycardia and irregular rhythm, Echo and cardiac consult, elevated triponins Plan: PT may work with ROM while in bed, WBAT Pain control DVT prophylaxis - Eliquis 5mg BID appreciate hospitalist and cardiology care
[2019-07-15] MEDS ORDERED: Sodium Phosphate ADULT ENEMA* 118 ml bottle PR PRN (12:21)
[2019-07-15] MEDS ORDERED: Amiodarone TAB* 400 MG PO ONE (14:03)
[2019-07-15] MEDS ORDERED: Amiodarone TAB* 400 MG ONE (14:09)
[2019-07-15] MEDS ORDERED: Metoprolol Tartrate TAB* 25 MG ONE (14:12)
[2019-07-15] MEDS: Metoprolol Tartrate TAB* 25 MG PO SCH ×2 (14:14→21:14)
--- NOTE | 2019-07-15 14:29 | PN ---
Subjective Date of Service: 07/15/19 Objective Active Medications: Acetaminophen (Tylenol Tab*) 975 mg PO Q8HR [facility] Last Admin: 07/15/19 14:13 Dose: 975 mg Albuterol/Ipratropium (Duoneb (Albuterol 2.5 Mg/Ipratropium 0.5 Mg)) 1 neb INH Q4H PRN PRN Reason: SOB/WHEEZING Last Admin: 07/14/19 19:05 Dose: 1 neb Allopurinol (Zyloprim Tab*) 300 mg PO QPM [facility] Last Admin: 07/14/19 19:07 Dose: 300 mg Amiodarone HCl (Cordarone Tab*) 400 mg PO BID [facility] Apixaban (Eliquis*) 2.5 mg PO BID [facility] Last Admin: 07/15/19 08:07 Dose: 2.5 mg Atorvastatin Calcium (Lipitor*) 40 mg PO BEDTIME [facility] Last Admin: 07/14/19 20:20 Dose: 40 mg Bisacodyl (Dulcolax Supp*) 10 mg [place] DAILY PRN PRN Reason: CONSTIPATION Citalopram Hydrobromide (Celexa Tab*) 20 mg PO DAILY [facility] Last Admin: 07/15/19 08:07 Dose: 20 mg Cyclobenzaprine HCl (Flexeril Tab*) 10 mg PO Q6H PRN PRN Reason: SPASMS Last Admin: 07/11/19 22:29 Dose: 10 mg Docusate Sodium (Colace Cap*) 100 mg PO BID [facility] Last Admin: 07/15/19 08:06 Dose: 100 mg Heparin Sodium (Porcine) (Heparin Flush Picc/Ml/Cvc(*)) 1 - 3 ml FLUSH 0600, 1800 [facility]; Protocol Last Admin: 07/15/19 05:41 Dose: Not Given Lactulose (Lactulose*) 30 ml PO BID PRN PRN Reason: CONSTIPATION Last Admin: 07/15/19 12:55 Dose: 30 ml Magnesium Hydroxide (Milk Of Magnesia Liq*) 30 ml PO BID [facility] Last Admin: 07/15/19 08:07 Dose: 30 ml Metoprolol Tartrate (Lopressor Tab*) 25 mg PO TID [facility] Last Admin: 07/15/19 14:14 Dose: 25 mg Multivitamins (Theragran Tab*) 1 tab PO DAILY [facility] Last Admin: 07/15/19 08:06 Dose: 1 tab Ondansetron HCl (Zofran Inj*) 4 mg IV Q6H PRN PRN Reason: NAUSEA Last Admin: 07/11/19 20:40 Dose: 4 mg Ondansetron HCl (Zofran Odt Tab*) 4 mg PO Q6H PRN PRN Reason: NAUSEA Oxycodone/Acetaminophen (Percocet 5/325 Tab*) 1 tab PO Q4H PRN PRN Reason: PAIN - MODERATE Last Admin: 07/12/19 18:45 Dose: 1 tab Oxycodone/Acetaminophen (Percocet 5/325 Tab*) 2 tab PO Q4H PRN PRN Reason: PAIN - SEVERE Last Admin: 07/12/19 12:43 Dose: 2 tab Pantoprazole Sodium (Protonix Tab*) 40 mg PO QAM [facility] Last Admin: 07/15/19 08:07 Dose: 40 mg Sodium Biphosphate/Sodium Phosphate (Fleet Enema*) 1 bottle NM ONCE PRN PRN Reason: CONSTIPATION Temazepam (Restoril Cap*) 15 mg PO BEDTIME PRN PRN Reason: INSOMNIA Vital Signs - 8 hr 07/15/19 07/15/19 07/15/19 06:30 07:00 07:01 Temperature Pulse Rate 110 107 111 Respiratory 44 24 19 Rate Blood Pressure 127/80 110/70 (mmHg) O2 Sat by Pulse 96 96 96 Oximetry 07/15/19 07/15/19 07/15/19 07:30 07:43 08:00 Temperature 98.9 F Pulse Rate 107 110 Respiratory 27 32 Rate Blood Pressure 122/82 95/78 (mmHg) O2 Sat by Pulse 97 95 Oximetry 07/15/19 07/15/19 07/15/19 08:05 08:30 09:00 Temperature Pulse Rate 110 107 110 Respiratory 43 33 44 Rate Blood Pressure 132/92 120/89 133/90 (mmHg) O2 Sat by Pulse 96 97 97 Oximetry 07/15/19 07/15/19 07/15/19 09:30 09:43 09:58 Temperature Pulse Rate 108 118 115 Respiratory 23 34 34 Rate Blood Pressure 137/88 (mmHg) O2 Sat by Pulse 96 95 97 Oximetry 07/15/19 07/15/19 07/15/19 10:00 10:30 11:00 Temperature Pulse Rate 119 115 119 Respiratory 39 17 17 Rate Blood Pressure 111/89 121/88 133/80 (mmHg) O2 Sat by Pulse 96 97 94 Oximetry 07/15/19 07/15/19 07/15/19 11:31 12:00 12:30 Temperature 99.5 F Pulse Rate 118 120 124 Respiratory 32 20 27 Rate Blood Pressure 125/87 145/92 (mmHg) O2 Sat by Pulse 94 94 96 Oximetry 07/15/19 07/15/19 07/15/19 13:00 13:33 14:00 Temperature Pulse Rate 122 111 132 Respiratory 33 16 32 Rate Blood Pressure 126/102 119/100 (mmHg) O2 Sat by Pulse 95 94 95 Oximetry Oxygen Devices in Use Now: Nasal Cannula Result Diagrams: 07/15/19 05:43 07/15/19 05:43 Microbiology and Other Data: Microbiology 07/12/19 11:58 Urine Culture - Final Urine No Growth (<1,000 CFU/mL) 07/12/19 10:03 Nasal Screen MRSA (PCR) - Final Nasal Mrsa Not Detected Assess/Plan/Problems-Billing Assessment: This is an 84 year old male with hx of CAD/CABG, afib, HTN, gout, GERD and OA that presented to [facility] [place] for elective left TKA that has had post-operative episodes of afib with RVR and Vtach vs SVT on 07/12/19. - Patient Problems (1) V-tach Code(s): I47.2 - VENTRICULAR TACHYCARDIA SNOMED Code(s): 18291375 Comment: - BP stable - No response to adenosine, alternating with afib/flutter with RVR - Runs are wide complex and do appear to be VT vs SVT, please refer to cardiology notes for interpretation of rhythm - Amio load 150mg pushed 07/14, drip initiated at 1mg/min for 6 hours, drop to 0.5mg/min for 18hours thereafter. Required additional push of amio last night for further runs of wide complex rhythm last night. Still having persistent runs of tachycardia with rates in the 140s - Per cardiology note today, transition to oral amio 400mg BID x7 days then 400mg oral daily thereafter. Restart metoprolol today 25mg TID if BP holds with potential for CALVIN CV next week - Troponinemia in the presence of demand ischemia 2/2 tachycardia, no chest pain or other anginal equivalents with intact LV function per ECHO above, no indication to trend troponin - Keep Mg>2 and K>4 - Continue tele - EKG with any further rhythm changes (2) Atrial fibrillation with RVR Code(s): I48.91 - UNSPECIFIED ATRIAL FIBRILLATION SNOMED Code(s): 784591690833351 Comment: - Not on AC outpatient - BP improved, restart metoprolol 25mg TID today - Continue amiodarone loading - No definitive onset of afib, per cardiology will hold off on any plans for cardioversion at this time and focus on rate control and optimization - Continue Eliquis at 2.5mg BID 2/2 renal function and low PLTS (3) Status post left knee replacement Code(s): Z96.652 - PRESENCE OF LEFT ARTIFICIAL KNEE JOINT SNOMED Code(s): 7914126711459 Comment: - POD4 - POC as per ortho - Pain control PRN - May be OOB to chair with passive ROM with PT if HR controlled (4) Thrombocytopenia Code(s): D69.6 - THROMBOCYTOPENIA, UNSPECIFIED SNOMED Code(s): 553195865 Comment: - Appears to have had low platelets since 2016, etiology unclear, mildly supressed H&H as well pre-op - Continue to follow, will lower eliquis to 2.5BID, will have to re-evaluate if PLTS drop below 50, 73 today - Transfused 1 unit PRBCs 07/04/19 (5) Anemia Code(s): D64.9 - ANEMIA, UNSPECIFIED SNOMED Code(s): 245111161 Comment: - Drop in H&H, no hematoma or active bleeding, 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) , recent post-op and arrhythmias, one unit PRBCs transfused 07/14 with appropriate increase in H&H - Goal H&H >8&28 (6) History of coronary artery disease Code(s): Z86.79 - PERSONAL HISTORY OF OTHER DISEASES OF THE CIRCULATORY SYSTEM SNOMED Code(s): 447782344 Comment: - With hx of CABG, sees Dr. Lebron outpatient - Continue statin and BB (7) HTN (hypertension) Code(s): I10 - ESSENTIAL (PRIMARY) HYPERTENSION SNOMED Code(s): 75963374 Comment: - Restart HCTZ and monitor BP closely (8) Gout Code(s): M10.9 - GOUT, UNSPECIFIED SNOMED Code(s): 02925258 Comment: - Not in flare - Continue allopurinol (9) GERD (gastroesophageal reflux disease) Code(s): K21.9 - GASTRO-ESOPHAGEAL REFLUX DISEASE WITHOUT ESOPHAGITIS SNOMED Code(s): 396684249 Comment: - PPI (10) DVT prophylaxis Code(s): Z29.9 - ENCOUNTER FOR PROPHYLACTIC MEASURES, UNSPECIFIED SNOMED Code( s): 716474529 Comment: - Continue eliquis 2.5 BID (11) Full code status Code(s): Z78.9 - OTHER SPECIFIED HEALTH STATUS SNOMED Code(s): 469961161 Status and Disposition: Inpatient, critical/guarded. Critical care time 75 minutes.
[2019-07-15] MEDS ORDERED: Ipratropium 0.5MG/2.5ML NEB* 0.5 MG/2.5 ML NEB.SOLN ONE (14:37)
[2019-07-15] MEDS ORDERED: Amiodarone IV VIAL** 50 MG/ML 3 ML (150 MG) VIAL IV PUSH ONE (14:40)
[2019-07-15] MEDS ORDERED: Amiodarone 150 MG IVPREMIX* 150 MG/100 ML BAG IV ONE ×2 (14:51→15:00)
[2019-07-15] MEDS: Amiodarone DRIP* 1.8 MG/ML 200 ML IV SCH ×3 (15:05→21:16)
[2019-07-15 15:40] LABS: Hematocrit 28 % (42-52); Hemoglobin 9.3 g/dL (14.0-18.0)
[2019-07-15] MEDS: Allopurinol TAB* 300 MG PO SCH (17:58)
[2019-07-15] MEDS: Albuterol/Ipratropium NEB.SOL* Albuterol 2.5 MG/Ipratropium 0.5 MG 3 ML INH PRN (19:23)
[2019-07-15] MEDS ORDERED: Amiodarone TAB* 400 MG PO SCH (21:00)
[2019-07-15] MEDS: Atorvastatin* 40 MG TAB PO SCH (21:14)
[2019-07-16] MEDS: Amiodarone DRIP* 1.8 MG/ML 200 ML IV SCH (00:19)
[2019-07-16] MEDS: Albuterol/Ipratropium NEB.SOL* Albuterol 2.5 MG/Ipratropium 0.5 MG 3 ML INH PRN ×2 (01:37→07:21)
[2019-07-16] MEDS: Amiodarone 360 MG IVPREMIX* 360 MG/200 ML BAG IV SCH ×3 (04:00→16:00)
[2019-07-16 04:25] LABS: ABS Lymphocytes 2.3 10^3/ul (1.0-4.8); ABS Monocytes 0.8 10^3/ul (0-0.8); ABS Neutrophils 8.1 10^3/ul (1.5-7.7); Eosinophil % 0.2 %; Hematocrit 30 % (42-52); Hemoglobin 9.9 g/dL (14.0-18.0); Lymphocyte % 20.5 %; Mean Corpuscular HGB Conc 33 g/dL (31-36); Mean Corpuscular Hemoglobin 35 pg (27-31); Mean Corpuscular Volume 105 fL (80-94); Mean Platelet Volume 9.2 fL (7.4-10.4); Platelet Count 100 10^3/uL (150-450); Red Blood Count 2.86 10^6 /uL (4.18-5.48); Red Cell Distribution Width 16 % (10-15); White Blood Count 11.2 10^3/uL (3.5-10.8)
[2019-07-16 04:41] LABS: Albumin 2.1 g/dL (3.2-5.2); Albumin/Globulin Ratio 1.2 (1-3); BUN/Creatinine Ratio 21.5 (8-20); EGFR African American 79.7 (>60); EGFR Non-African American 65.8 (>60); Globulin 1.8 g/dL (2-4); Potassium 2.9 mmol/L (3.5-5.0); Total Bilirubin 0.4 mg/dL (0.2-1.0); Total Protein 3.9 g/dL (6.4-8.9)
[2019-07-16 04:44] LABS: Calcium 5.9 mg/dL (8.6-10.3)
[2019-07-16] MEDS: Acetaminophen TAB* 325 MG PO SCH ×3 (05:40→21:41)
[2019-07-16 05:41] LABS: ALT 14 U/L (7-52); Albumin 3.1 g/dL (3.2-5.2); Albumin/Globulin Ratio 1.1 (1-3); Alkaline Phosphatase 63 U/L (34-104); BUN/Creatinine Ratio 19.6 (8-20); Blood Urea Nitrogen 32 mg/dL (6-24); CO2 Carbon Dioxide 29 mmol/L (22-32); Calcium 8.6 mg/dL (8.6-10.3); Chloride 100 mmol/L (101-111); EGFR Non-African American 40.5 (>60); Globulin 2.7 g/dL (2-4); Glucose 162 mg/dL (70-100); Sodium 134 mmol/L (135-145); Total Protein 5.8 g/dL (6.4-8.9)
[2019-07-16 05:48] LABS: Anion Gap 5 mmol/L (2-11)
[2019-07-16 06:21] LABS: Potassium Redraw 4.1 mmol/L (3.5-5.0)
[2019-07-16] MEDS: Vitamin THERAPEUTIC TAB PO SCH (08:07)
[2019-07-16] MEDS: Metoprolol Tartrate TAB* 25 MG PO SCH ×3 (08:07→21:42)
[2019-07-16] MEDS: Apixaban* 2.5 MG TAB PO SCH ×2 (08:07→21:42)
[2019-07-16] MEDS: Citalopram TAB* 20 MG PO SCH (08:08)
[2019-07-16] MEDS: Docusate CAP* 100 MG PO SCH ×2 (08:08→21:42)
[2019-07-16] MEDS: Pantoprazole TAB * 40 MG TAB PO SCH (08:08)
[2019-07-16] MEDS: Magnesium Hydroxide LIQ* 30 ML UDC PO SCH ×2 (08:08→21:43)
[2019-07-16] MEDS: Fluticasone NASAL SPRAY 50MCG* 16 gm SPRAY BTL BOTH NARES SCH (09:42)
[2019-07-16] MEDS: Diltiazem IV BAG* D5W Premix 125 MG/125 ML BAG IV SCH ×2 (09:42→17:29)
[2019-07-16 10:09] LABS: ABS Lymphocytes 2.9 10^3/ul (1.0-4.8); ABS Monocytes 0.9 10^3/ul (0-0.8); Eosinophil % 0.1 %; Hematocrit 28 % (42-52); Hemoglobin 9.5 g/dL (14.0-18.0); Lymphocyte % 19.5 %; Mean Corpuscular HGB Conc 34 g/dL (31-36); Mean Corpuscular Hemoglobin 35 pg (27-31); Mean Corpuscular Volume 105 fL (80-94); Platelet Count 119 10^3/uL (150-450); Red Blood Count 2.69 10^6 /uL (4.18-5.48); Red Cell Distribution Width 16 % (10-15); White Blood Count 14.8 10^3/uL (3.5-10.8)
[2019-07-16] MEDS: Polyethylene Glycol 3350* 17 GM PACKET PO SCH (10:12)
[2019-07-16 10:24] LABS: ALT 15 U/L (7-52); Albumin 3.1 g/dL (3.2-5.2); Albumin/Globulin Ratio 1.3 (1-3); Alkaline Phosphatase 76 U/L (34-104); BUN/Creatinine Ratio 19.5 (8-20); Blood Urea Nitrogen 31 mg/dL (6-24); CO2 Carbon Dioxide 28 mmol/L (22-32); Calcium 8.4 mg/dL (8.6-10.3); Chloride 100 mmol/L (101-111); EGFR African American 50.4 (>60); EGFR Non-African American 41.7 (>60); Globulin 2.4 g/dL (2-4); Glucose 165 mg/dL (70-100); Sodium 136 mmol/L (135-145); Total Protein 5.5 g/dL (6.4-8.9)
--- NOTE | 2019-07-16 10:32 | PN ---
Subjective Date of Service: 07/16/19 Interval History: Mr. Traore is feeling well this morning. He offers no complaints. Denies CP, palpitations, SOB, abdominal pain, N/V. Starting to eat breakfast on exam. Knee pain present, but manageable and he feels he could get up and ambulate without difficulty. Nursing concerned about cough this morning. HR still elevated on amio drip. Drip was stopped last night at 0300 and patient almost immediately had VT. Drip restarted at 0400. Family History: Unchanged from Admission Social History: Unchanged from Admission Past Medical History: Unchanged from Admission Objective Active Medications: Acetaminophen (Tylenol Tab*) 975 mg PO Q8HR [facility] Albuterol/Ipratropium (Duoneb (Albuterol 2.5 Mg/Ipratropium 0.5 Mg)) 1 neb INH Q4H PRN SOB/WHEEZING Allopurinol (Zyloprim Tab*) 300 mg PO QPM [facility] Apixaban (Eliquis*) 2.5 mg PO BID [facility] Atorvastatin Calcium (Lipitor*) 40 mg PO BEDTIME [facility] Bisacodyl (Dulcolax Supp*) 10 mg [place] DAILY PRN CONSTIPATION Citalopram Hydrobromide (Celexa Tab*) 20 mg PO DAILY [facility] Cyclobenzaprine HCl (Flexeril Tab*) 10 mg PO Q6H PRN SPASMS Docusate Sodium (Colace Cap*) 100 mg PO BID [facility] Fluticasone Propionate (Flonase Nasal [place] 50mcg*) 2 spray BOTH NARES DAILY [facility] Heparin Sodium (Porcine) (Heparin Flush Picc/Ml/Cvc(*)) 1 - 3 ml FLUSH 0600, 1800 [facility]; Protocol Amiodarone HCl (Nexterone 360 Mg/200 Ml Ivpremix*) 360 mg in 200 mls @ 16.667 mls/hr IV Q12H [facility] Diltiazem/Dextrose (Cardizem Iv D5w Bag* Premix) 125 mg in 125 mls @ 5 mls/hr IV .PER PROTOCOL [facility]; Protocol Lactulose (Lactulose*) 30 ml PO BID PRN CONSTIPATION Magnesium Hydroxide (Milk Of Magnesia Liq*) 30 ml PO BID [facility] Metoprolol Tartrate (Lopressor Tab*) 25 mg PO TID [facility] Multivitamins (Theragran Tab*) 1 tab PO DAILY [facility] Ondansetron HCl (Zofran Inj*) 4 mg IV Q6H PRN NAUSEA Ondansetron HCl (Zofran Odt Tab*) 4 mg PO Q6H PRN NAUSEA Oxycodone/Acetaminophen (Percocet 5/325 Tab*) 1 tab PO Q4H PRN PAIN - MODERATE Oxycodone/Acetaminophen (Percocet 5/325 Tab*) 2 tab PO Q4H PRN PAIN - SEVERE Pantoprazole Sodium (Protonix Tab*) 40 mg PO QAM [facility] Polyethylene Glycol/Electrolytes (Miralax*) 17 gm PO DAILY [facility] Sodium Biphosphate/Sodium Phosphate (Fleet Enema*) 1 bottle DE ONCE PRN CONSTIPATION Temazepam (Restoril Cap*) 15 mg PO BEDTIME PRN INSOMNIA Vital Signs - 8 hr 07/16/19 07/16/19 07/16/19 02:30 03:00 03:01 Temperature Pulse Rate 145 131 138 Respiratory 30 26 34 Rate Blood Pressure 137/107 120/87 (mmHg) O2 Sat by Pulse 96 88 93 Oximetry 07/16/19 07/16/19 07/16/19 03:24 03:30 04:00 Temperature 99.0 F Pulse Rate 149 141 Respiratory 25 17 Rate Blood Pressure 130/99 124/102 (mmHg) O2 Sat by Pulse 94 96 Oximetry 07/16/19 07/16/19 07/16/19 04:31 05:00 05:30 Temperature Pulse Rate 138 138 129 Respiratory 34 34 33 Rate Blood Pressure 116/86 125/86 128/104 (mmHg) O2 Sat by Pulse 95 97 94 Oximetry 07/16/19 07/16/19 07/16/19 05:44 06:00 06:01 Temperature Pulse Rate 139 136 135 Respiratory 36 35 25 Rate Blood Pressure 127/90 118/75 (mmHg) O2 Sat by Pulse 95 96 96 Oximetry 07/16/19 07/16/19 07/16/19 06:30 07:00 07:26 Temperature Pulse Rate 135 136 150 Respiratory 30 31 27 Rate Blood Pressure 108/91 118/85 (mmHg) O2 Sat by Pulse 94 96 96 Oximetry 07/16/19 07/16/19 07/16/19 07:30 08:00 08:30 Temperature 99.2 F Pulse Rate 138 146 147 Respiratory 24 40 24 Rate Blood Pressure 132/96 129/87 122/82 (mmHg) O2 Sat by Pulse 99 94 95 Oximetry 07/16/19 07/16/19 07/16/19 09:00 09:01 09:31 Temperature Pulse Rate 148 140 164 Respiratory 29 32 27 Rate Blood Pressure 117/84 133/97 (mmHg) O2 Sat by Pulse 95 95 93 Oximetry 07/16/19 07/16/19 10:00 10:02 Temperature Pulse Rate 139 138 Respiratory 17 21 Rate Blood Pressure (mmHg) O2 Sat by Pulse 89 94 Oximetry Oxygen Devices in Use Now: Nasal Cannula - 3L Appearance: Elderly male sitting in bed in NAD Ears/Nose/Mouth/Throat: Mucous Membranes Moist Neck: NL Appearance and Movements; NL JVP, Trachea Midline Respiratory: Symmetrical Chest Expansion and Respiratory Effort, Clear to Auscultation Cardiovascular: NL Sounds; No Murmurs; No JVD Abdominal: NL Sounds; No Tenderness; No Distention Extremities: - - Mild nonpitting LLE Neurological: Alert and Oriented x 3 Lines/Tubes/Other Access: Clean, Dry and Intact Peripheral IV Nutrition: Taking PO's Result Diagrams: 07/16/19 09:53 07/16/19 09:53 Assess/Plan/Problems-Billing Assessment: Mr. Traore is an 84 yo M with PMH of CAD/CABG, afib, HTN, gout, GERD and OA; that presented to [facility] [place] for elective left TKA that has had post-operative episodes of afib with RVR and VT vs SVT on 07/12/19. - Patient Problems (1) Atrial fibrillation with RVR Code(s): I48.91 - UNSPECIFIED ATRIAL FIBRILLATION Comment: - Not previoulsy on anticoagulation - Not responsive to adenosine - HR this morning 130-150s, narrow complex QRS - Amio drip was stopped at 0300 (1mg/min) and patient almost immediately had VT , so drip was restarted at 0400 (0.5 mg/min) - Appreciate Cardiology consult; - Spoke with Dr. Delgado this morning who advised to maintain amio at 1mg/min and decrease to 0.5mg/min at 1600 today, then for 24 hours; also recommended starting diltiazem gtt with goal HR 110 - Plan for cardioversion in the AM; NPO after midnight - Continue metoprolol, amiodarone gtt, Eliquis (renal dosing); start diltiazem gtt (2) V-tach Code(s): I47.2 - VENTRICULAR TACHYCARDIA Comment: - Asymptomatic - Went back into VT almost immediately after amio gtt was stopped overnight; resolved when amio was restarted - Runs are wide complex and do appear to be VT; refer to cardiology notes for interpretation of rhythm - Troponinemia in the presence of demand ischemia 2/2 tachycardia; no chest pain or other anginal equivalents with intact LV function per echo; no indication to trend troponin - Appreciate Cardiology consult - Maintain mag >2 and potassium >4 - Repeat EKG for any significant rhythm changes - Plan to transition to oral amio 400mg BID x7 days then 400mg oral daily thereafter once off gtt - Continue amiodarone gtt, metoprolol (3) Thrombocytopenia Code(s): D69.6 - THROMBOCYTOPENIA, UNSPECIFIED Comment: - Improving - Appears to have been present since 2016 with etiology unclear - Continue to trend (4) Anemia Code(s): D64.9 - ANEMIA, UNSPECIFIED Comment: - Drop in H&H, no hematoma or active bleeding, 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), recent post-op and arrhythmias - 1 unit PRBCs transfused 07/14 - Goal H&H >04/12 (5) Status post left knee replacement Code(s): Z96.652 - PRESENCE OF LEFT ARTIFICIAL KNEE JOINT Comment: - POD #5 - Management per Ortho - May be OOB to chair with passive ROM with PT if HR controlled - Continue pain management and bowel regimen (6) HTN (hypertension) Code(s): I10 - ESSENTIAL (PRIMARY) HYPERTENSION Comment: - Normotensive - Continue metoprolol (7) History of coronary artery disease Code(s): Z86.79 - PERSONAL HISTORY OF OTHER DISEASES OF THE CIRCULATORY SYSTEM Comment: - With history of CABG - Follows with Dr. Lebron outpatient - Continue atorvastatin, metoprolol (8) GERD (gastroesophageal reflux disease) Code(s): K21.9 - GASTRO-ESOPHAGEAL REFLUX DISEASE WITHOUT ESOPHAGITIS Comment : - Continue pantoprazole (9) Gout Code(s): M10.9 - GOUT, UNSPECIFIED Comment: - Not in flare - Continue allopurinol (10) DVT prophylaxis Code(s): Z29.9 - ENCOUNTER FOR PROPHYLACTIC MEASURES, UNSPECIFIED Comment: - Continue Eliquis (renal dosing) (11) Full code status Code(s): Z78.9 - OTHER SPECIFIED HEALTH STATUS Comment: Status and Disposition: Inpatient. Condition guarded. Anticipate d/c home vs [facility] when medically stable. Counseling and/or Coordination of Care Minutes: Critical care time: 60 minutes. Attending: Sana Bond
--- NOTE | 2019-07-16 10:58 | PN ---
Progress Note - Progress Note Date of Service: 07/16/19 SOAP: Subjective: Pt seen and examined at bedside. HR still elevated. No complaint of pain, Denies CP, SOB, F/C. Vital Signs: Temp Pulse Resp BP Pulse Ox 99.2 F 138 21 133/97 94 07/16/19 08:00 07/16/19 10:02 07/16/19 10:02 07/16/19 09:31 07/16/19 10:02 Laboratory Last Values WBC 14.8 10^3/uL (3.5-10.8) H 07/16/19 09:53 RBC 2.69 10^6 /uL (4.18-5.48) L 07/16/19 09:53 Hgb 9.5 g/dL (14.0-18.0) L 07/16/19 09:53 Hct 28 % (42-52) L 07/16/19 09:53 MCV 105 fL (80-94) H 07/16/19 09:53 MCH 35 pg (27-31) H 07/16/19 09:53 MCHC 34 g/dL (31-36) 07/16/19 09:53 RDW 16 % (10-15) H 07/16/19 09:53 Plt Count 119 10^3/uL (150-450) L 07/16/19 09:53 MPV 9.0 fL (7.4-10.4) 07/16/19 09:53 Neut % (Auto) 73.9 % 07/16/19 09:53 Lymph % (Auto) 19.5 % 07/16/19 09:53 [place] % (Auto) 6.2 % 07/16/19 09:53 Eos % (Auto) 0.1 % 07/16/19 09:53 Baso % (Auto) 0.3 % 07/16/19 09:53 Absolute Neuts (auto) 11.0 10^3/ul (1.5-7.7) H 07/16/19 09:53 Absolute Lymphs (auto) 2.9 10^3/ul (1.0-4.8) 07/16/19 09:53 Absolute Monos (auto) 0.9 10^3/ul (0-0.8) H 07/16/19 09:53 Absolute Eos (auto) 0.0 10^3/ul (0-0.6) 07/16/19 09:53 Absolute Basos (auto) 0.0 10^3/ul (0-0.2) 07/16/19 09:53 Absolute Nucleated RBC 0.0 10^3/ul 07/16/19 09:53 Nucleated RBC % 0.0 07/16/19 09:53 Sodium 136 mmol/L (135-145) 07/16/19 09:53 Potassium 4.1 mmol/L (3.5-5.0) 07/16/19 05:55 Chloride 100 mmol/L (101-111) L 07/16/19 09:53 Carbon Dioxide 28 mmol/L (22-32) 07/16/19 09:53 Anion Gap 5 mmol/L (2-11) 07/16/19 05:00 BUN 31 mg/dL (6-24) H 07/16/19 09:53 Creatinine 1.59 mg/dL (0.67-1.17) H 07/16/19 09:53 Est GFR ( Amer) 50.4 (>60) 07/16/19 09:53 Est GFR (Non-Af Amer) 41.7 (>60) 07/16/19 09:53 BUN/Creatinine Ratio 19.5 (8-20) 07/16/19 09:53 Glucose 165 mg/dL (70-100) H 07/16/19 09:53 Calcium 8.4 mg/dL (8.6-10.3) L 07/16/19 09:53 Magnesium 2.7 mg/dL (1.9-2.7) 07/15/19 05:43 Total Bilirubin 0.60 mg/dL (0.2-1.0) 07/16/19 09:53 AST 40 U/L (13-39) H 07/16/19 05:55 ALT 15 U/L (7-52) 07/16/19 09:53 Alkaline Phosphatase 76 U/L (34-104) 07/16/19 09:53 Troponin I 0.03 ng/mL (<0.03) H* 07/13/19 04:35 Total Protein 5.5 g/dL (6.4-8.9) L 07/16/19 09:53 Albumin 3.1 g/dL (3.2-5.2) L 07/16/19 09:53 Globulin 2.4 g/dL (2-4) 07/16/19 09:53 Albumin/Globulin Ratio 1.3 (1-3) 07/16/19 09:53 Urine Color Yellow 07/12/19 11:58 Urine Appearance Cloudy 07/12/19 11:58 Urine pH 5.0 (5-9) 07/12/19 11:58 Ur Specific [place] 1.021 (1.010-1.030) 07/12/19 11:58 Urine Protein Negative (Negative) 07/12/19 11:58 Urine Ketones Negative (Negative) 07/12/19 11:58 Urine Blood 2+ (Negative) A 07/12/19 11:58 Urine Nitrate Negative (Negative) 07/12/19 11:58 Urine Bilirubin Negative (Negative) 07/12/19 11:58 Urine Urobilinogen Negative (Negative) 07/12/19 11:58 Ur Leukocyte Esterase Negative (Negative) 07/12/19 11:58 Urine WBC (Auto) Trace(0-5/hpf) (Absent) 07/12/19 11:58 Urine RBC (Auto) 3+(>10/hpf) (Absent) A 07/12/19 11:58 Urine Bacteria Absent (Absent) 07/12/19 11:58 Hyaline Casts Present (Absent) A 07/12/19 11:58 Urine Glucose Negative (Negative) 07/12/19 11:58 Blood Type A Negative 07/14/19 05:13 Antibody Screen Negative 07/14/19 05:13 Crossmatch See Detail 07/14/19 05:13 Objective: A&O x3, NAD Dressing C/D/I, Calves soft and nontender, +edema LLE, NVI distally. Assessment: 84 yo male s/p Left TKA POD #5 - postop tachycardia and irregular rhythm, cardiac consult and elevated triponins Plan: PT/OT WBAT Pain control DVT prophylaxis - Eliquis 5 mg Appreciate hospitalist and cardiology care
[2019-07-16 11:18] LABS: ABS Lymphocytes 2.3 10^3/ul (1.0-4.8); ABS Monocytes 0.8 10^3/ul (0-0.8); ABS Neutrophils 9.1 10^3/ul (1.5-7.7); Eosinophil % 0.2 %; Hematocrit 29 % (42-52); Hemoglobin 9.6 g/dL (14.0-18.0); Lymphocyte % 18.6 %; Mean Corpuscular HGB Conc 33 g/dL (31-36); Mean Corpuscular Hemoglobin 35 pg (27-31); Mean Corpuscular Volume 105 fL (80-94); Mean Platelet Volume 9.5 fL (7.4-10.4); Nucleated Red Blood Cells % 0.1; Platelet Count 109 10^3/uL (150-450); Red Blood Count 2.78 10^6 /uL (4.18-5.48); Red Cell Distribution Width 16 % (10-15); White Blood Count 12.2 10^3/uL (3.5-10.8)
[2019-07-16 12:11] LABS: Anion Gap 8 mmol/L (2-11)
[2019-07-16 12:21] LABS: Magnesium 2.4 mg/dL (1.9-2.7)
[2019-07-16] MEDS: Ipratropium 0.5MG/2.5ML NEB* 0.5 MG/2.5 ML NEB.SOLN INH PRN ×2 (13:52→21:17)
[2019-07-16] MEDS ORDERED: Amiodarone 360 MG IVPREMIX* 360 MG/200 ML BAG IV SCH (13:56)
[2019-07-16] MEDS ORDERED: Furosemide IV* 10 MG/ML VIAL (40 MG) IV ONE (14:52)
[2019-07-16] MEDS: methylPREDNISolone SOD 40 MG* 1 ML VIAL IV SCH (17:36)
[2019-07-16] MEDS: Allopurinol TAB* 300 MG PO SCH (17:37)
[2019-07-16 17:39] LABS: Urine Appearance Cloudy; Urine Bilirubin Negative (Negative); Urine Blood Negative (Negative); Urine Color Yellow; Urine Glucose Negative (Negative); Urine Ketones Negative (Negative); Urine Nitrite Negative (Negative); Urine Protein Negative (Negative); Urine Specific Gravity 1.026 (1.010-1.030); Urine Urobilinogen Negative (Negative)
[2019-07-16] MEDS: Atorvastatin* 40 MG TAB PO SCH (21:41)
[2019-07-17] MEDS: methylPREDNISolone SOD 40 MG* 1 ML VIAL IV SCH ×3 (00:04→16:22)
[2019-07-17] MEDS: Amiodarone 360 MG IVPREMIX* 360 MG/200 ML BAG IV SCH ×2 (00:41→14:25)
[2019-07-17] MEDS: Diltiazem IV BAG* D5W Premix 125 MG/125 ML BAG IV SCH (00:49)
[2019-07-17 06:12] LABS: ABS Monocytes 0.2 10^3/ul (0-0.8); ABS Neutrophils 8.7 10^3/ul (1.5-7.7); Hematocrit 27 % (42-52); Hemoglobin 9.1 g/dL (14.0-18.0); Lymphocyte % 25.2 %; Mean Corpuscular HGB Conc 34 g/dL (31-36); Mean Corpuscular Hemoglobin 35 pg (27-31); Mean Corpuscular Volume 104 fL (80-94); Mean Platelet Volume 8.6 fL (7.4-10.4); Nucleated Red Blood Cells % 0.1; Platelet Count 101 10^3/uL (150-450); Red Blood Count 2.59 10^6 /uL (4.18-5.48); Red Cell Distribution Width 15 % (10-15); White Blood Count 11.9 10^3/uL (3.5-10.8)
[2019-07-17 06:34] LABS: Albumin/Globulin Ratio 1.2 (1-3); BUN/Creatinine Ratio 20.1 (8-20); Calcium 8.4 mg/dL (8.6-10.3); EGFR African American 40.1 (>60); EGFR Non-African American 33.1 (>60); Globulin 2.5 g/dL (2-4); Magnesium 2.5 mg/dL (1.9-2.7); Potassium 4.3 mmol/L (3.5-5.0); Total Bilirubin 0.6 mg/dL (0.2-1.0); Total Protein 5.5 g/dL (6.4-8.9)
[2019-07-17] MEDS: Acetaminophen TAB* 325 MG PO SCH ×3 (07:04→21:45)
[2019-07-17] MEDS: Fluticasone NASAL SPRAY 50MCG* 16 gm SPRAY BTL BOTH NARES SCH (09:00)
[2019-07-17] MEDS: Apixaban* 2.5 MG TAB PO SCH ×3 (09:14→21:06)
[2019-07-17] MEDS: Docusate CAP* 100 MG PO SCH ×2 (09:14→20:54)
[2019-07-17] MEDS: Citalopram TAB* 20 MG PO SCH ×2 (09:14→10:29)
[2019-07-17] MEDS: Vitamin THERAPEUTIC TAB PO SCH ×2 (09:15→10:30)
[2019-07-17] MEDS: Polyethylene Glycol 3350* 17 GM PACKET PO SCH (09:15)
[2019-07-17] MEDS: Magnesium Hydroxide LIQ* 30 ML UDC PO SCH ×2 (09:15→22:19)
[2019-07-17] MEDS: Metoprolol Tartrate TAB* 25 MG PO SCH ×4 (09:15→20:54)
[2019-07-17] MEDS: Pantoprazole TAB * 40 MG TAB PO SCH ×2 (09:15→10:30)
[2019-07-17] MEDS: Albuterol/Ipratropium NEB.SOL* Albuterol 2.5 MG/Ipratropium 0.5 MG 3 ML INH PRN ×3 (09:42→20:29)
--- NOTE | 2019-07-17 11:00 | PN ---
Progress Note - Progress Note Date of Service: 07/17/19 SOAP: Subjective: [The pt was seen today sitting up in chair. Family is with him today. States that he is doing well. Admits to SOB. No chest pain, nausea or vomiting. ] Objective: A&O x3, NAD Dressing C/D/I, changed today, incision is c/d/i. Calves soft and nontender, + edema LLE, NVI distally. Vital Signs Temp 98.6 F 07/17/19 08:20 Pulse 107 07/17/19 10:30 Resp 20 07/17/19 10:30 BP 113/78 07/17/19 10:30 Pulse Ox 96 07/17/19 10:30 Intake & Output 07/16/19 07/17/19 07/17/19 18:59 06:59 18:59 Intake Total 556 363.2 0 Output Total 325 0 0 Balance 231 363.2 0 Weight 108 lb 1.6 oz 238 lb 1.588 oz Intake: Medicated IV 556 363.2 CC - Amiodarone 439 206.5 GEN - Diltiazem/Cardizem 117 156.7 Oral 0 Output: Urine 325 0 0 Other: Date of Last Bowel 07/17/19 Movement # Bowel Movements 1 Estimated Stool Amount Medium Assessment: 84 yo male s/p Left TKA POD #6 - postop tachycardia and irregular rhythm, cardiac consult and elevated triponins Plan: PT/OT WBAT Pain control DVT prophylaxis - Eliquis 5 mg Possible Cardioversion today per Cardiology vs stabilization with medications
--- NOTE | 2019-07-17 12:35 | PN ---
Subjective Date of Service: 07/17/19 Interval History: Patient has no complaints. States LT knee has some pain, but able to participate with PT. Asked about dyspnea, says "I don't know." Denies chest pain, palpitations. Family History: Unchanged from Admission Social History: Unchanged from Admission Past Medical History: Unchanged from Admission Objective Active Medications: Acetaminophen (Tylenol Tab*) 975 mg PO Q8HR [facility] Last Admin: 07/17/19 07:04 Dose: Not Given Albuterol/Ipratropium (Duoneb (Albuterol 2.5 Mg/Ipratropium 0.5 Mg)) 1 neb INH Q4H PRN PRN Reason: SOB/WHEEZING Last Admin: 07/17/19 09:42 Dose: 1 neb Allopurinol (Zyloprim Tab*) 300 mg PO QPM [facility] Last Admin: 07/16/19 17:37 Dose: 300 mg Apixaban (Eliquis*) 2.5 mg PO BID [facility] Last Admin: 07/17/19 10:28 Dose: 2.5 mg Atorvastatin Calcium (Lipitor*) 40 mg PO BEDTIME [facility] Last Admin: 07/16/19 21:41 Dose: 40 mg Bisacodyl (Dulcolax Supp*) 10 mg CO DAILY PRN PRN Reason: CONSTIPATION Citalopram Hydrobromide (Celexa Tab*) 20 mg PO DAILY [facility] Last Admin: 07/17/19 10:29 Dose: 20 mg Cyclobenzaprine HCl (Flexeril Tab*) 10 mg PO Q6H PRN PRN Reason: SPASMS Last Admin: 07/11/19 22:29 Dose: 10 mg Docusate Sodium (Colace Cap*) 100 mg PO BID [facility] Last Admin: 07/17/19 09:14 Dose: Not Given Fluticasone Propionate (Flonase Nasal [place] 50mcg*) 2 spray BOTH NARES DAILY [facility] Last Admin: 07/17/19 09:00 Dose: 2 spray Heparin Sodium (Porcine) (Heparin Flush Picc/Ml/Cvc(*)) 1 - 3 ml FLUSH 0600, 1800 [facility]; Protocol Last Admin: 07/17/19 07:04 Dose: Not Given Diltiazem/Dextrose (Cardizem Iv D5w Bag* Premix) 125 mg in 125 mls @ 5 mls/hr IV .PER PROTOCOL [facility]; Protocol Last Admin: 07/17/19 00:49 Dose: 5 mls/hr Amiodarone HCl (Nexterone 360 Mg/200 Ml Ivpremix*) 360 mg in 200 mls @ 16.667 mls/hr IV PER RATE [facility] Stop: 07/17/19 16:00 Last Admin: 07/17/19 00:41 Dose: 16.667 mls/hr Ipratropium [place] (Atrovent 0.5 Mg Neb.[place]*) 0.5 mg INH Q4H PRN PRN Reason: SOB/WHEEZING Last Admin: 07/16/19 21:17 Dose: 0.5 mg Lactulose (Lactulose*) 30 ml PO BID PRN PRN Reason: CONSTIPATION Last Admin: 07/15/19 12:55 Dose: 30 ml Magnesium Hydroxide (Milk Of Magnesia Liq*) 30 ml PO BID [facility] Last Admin: 07/17/19 09:15 Dose: Not Given Methylprednisolone Sodium Succinate (Solu-Medrol 40 Mg) 40 mg IV Q8H [facility] Last Admin: 07/17/19 09:00 Dose: 40 mg Metoprolol Tartrate (Lopressor Tab*) 25 mg PO TID [facility] Last Admin: 07/17/19 10:28 Dose: 25 mg Multivitamins (Theragran Tab*) 1 tab PO DAILY [facility] Last Admin: 07/17/19 10:30 Dose: 1 tab Ondansetron HCl (Zofran Inj*) 4 mg IV Q6H PRN PRN Reason: NAUSEA Last Admin: 07/11/19 20:40 Dose: 4 mg Ondansetron HCl (Zofran Odt Tab*) 4 mg PO Q6H PRN PRN Reason: NAUSEA Oxycodone/Acetaminophen (Percocet 5/325 Tab*) 1 tab PO Q4H PRN PRN Reason: PAIN - MODERATE Last Admin: 07/12/19 18:45 Dose: 1 tab Oxycodone/Acetaminophen (Percocet 5/325 Tab*) 2 tab PO Q4H PRN PRN Reason: PAIN - SEVERE Last Admin: 07/12/19 12:43 Dose: 2 tab Pantoprazole Sodium (Protonix Tab*) 40 mg PO QAM [facility] Last Admin: 07/17/19 10:30 Dose: 40 mg Polyethylene Glycol/Electrolytes (Miralax*) 17 gm PO DAILY [facility] Last Admin: 07/17/19 09:15 Dose: Not Given Sodium Biphosphate/Sodium Phosphate (Fleet Enema*) 1 bottle CO ONCE PRN PRN Reason: CONSTIPATION Temazepam (Restoril Cap*) 15 mg PO BEDTIME PRN PRN Reason: INSOMNIA Vital Signs - 8 hr 07/17/19 07/17/19 07/17/19 04:45 05:00 05:15 Temperature Pulse Rate 100 94 92 Respiratory 17 22 29 Rate Blood Pressure 94/75 110/71 113/73 (mmHg) O2 Sat by Pulse 97 98 97 Oximetry 07/17/19 07/17/19 07/17/19 08:45 09:00 09:01 Temperature Pulse Rate 114 112 125 Respiratory 14 17 20 Rate Blood Pressure 118/81 115/67 (mmHg) O2 Sat by Pulse 96 94 96 Oximetry 07/17/19 07/17/19 07/17/19 09:15 09:30 09:45 Temperature Pulse Rate 102 103 102 Respiratory 17 42 14 Rate Blood Pressure 109/70 105/69 103/72 (mmHg) O2 Sat by Pulse 96 96 99 Oximetry 07/17/19 07/17/19 07/17/19 10:30 10:45 11:00 Temperature Pulse Rate 107 107 Respiratory 20 19 30 Rate Blood Pressure 113/78 117/73 (mmHg) O2 Sat by Pulse 96 95 Oximetry 07/17/19 07/17/19 07/17/19 11:06 11:15 11:30 Temperature Pulse Rate 107 108 108 Respiratory 31 24 16 Rate Blood Pressure 119/76 110/72 112/65 (mmHg) O2 Sat by Pulse 96 95 96 Oximetry Oxygen Devices in Use Now: Nasal Cannula Appearance: alert, no distress Neck: NL Appearance and Movements; NL JVP Respiratory: Symmetrical Chest Expansion and Respiratory Effort, Clear to Auscultation Cardiovascular: - - tachy, irregular, 1+ edema bilat LE Abdominal: NL Sounds; No Tenderness; No Distention, No Hepatosplenomegaly Lymphatic: No Cervical Adenopathy Neurological: Alert and Oriented x 3 Lines/Tubes/Other Access: Clean, Dry and Intact Peripheral IV Nutrition: Taking PO's Result Diagrams: 07/17/19 06:00 07/17/19 06:00 Additional Lab and Data: Laboratory Tests 07/17/19 06:00 Glucose 165 H Calcium 8.4 L AST 44 H ALT 20 EKG Data: Telemetry shows a-fib, RVR 110 bpm Assess/Plan/Problems-Billing Assessment: Mr. Traore is an 84 yo M with PMH of CAD/CABG, afib, HTN, gout, GERD and OA; that presented to [facility] [place] for elective left TKA that has had post-operative episodes of afib with RVR and VT vs SVT on 07/12/19. - Patient Problems (1) Atrial fibrillation with RVR Current Visit: Yes Status: Acute Priority: High Code(s): I48.91 - UNSPECIFIED ATRIAL FIBRILLATION SNOMED Code(s): 925219086402388 Comment: - Continue anticoagulation w/ eliquis - HR this morning 110s, narrow complex QRS - Amio drip at 0.5 mg/min, diltiazem ggt at 5, oral metoprolol - Will discuss cardioversion vs titration of meds, digoxin with Dr. Lebron (2) Status post left knee replacement Current Visit: Yes Status: Acute Priority: Medium Code(s): Z96.652 - PRESENCE OF LEFT ARTIFICIAL KNEE JOINT SNOMED Code(s): 6975763487088 Comment: - POD #6 - Management per Ortho - May be OOB to chair with passive ROM with PT if HR controlled - Continue pain management and bowel regimen (3) V-tach Current Visit: Yes Status: Acute Priority: High Code(s): I47.2 - VENTRICULAR TACHYCARDIA SNOMED Code(s): 19553221 Comment: - Asymptomatic - Will transition to oral amiodarone after discussion w/ Dr. Lebron (4) DVT prophylaxis Current Visit: Yes Status: Acute Priority: Low Code(s): Z29.9 - ENCOUNTER FOR PROPHYLACTIC MEASURES, UNSPECIFIED SNOMED Code(s): 744817773 Comment: - Continue Eliquis (renal dosing) (5) CKD (chronic kidney disease), stage II Current Visit: Yes Status: Acute Priority: Medium Code(s): N18.2 - CHRONIC KIDNEY DISEASE, STAGE 2 (MILD) SNOMED Code(s): 605851920 Comment: -Baseline Creatinine around 1.3-1.6, 1.9 today. -Will encourage fluids today, recheck in AM. Status and Disposition: Inpatient. Condition guarded. Anticipate d/c home vs [facility] when medically stable.
[2019-07-17] MEDS ORDERED: fentaNYL* 50 MCG/ML 2 ML VIAL (100 MCG VIAL) ONE (14:50)
[2019-07-17] MEDS ORDERED: Naloxone* 0.4 MG/ML 1 ML VIAL ONE (14:50)
[2019-07-17] MEDS ORDERED: Flumazenil* 0.1 MG/ML 5 ML MDV ONE (14:50)
[2019-07-17] MEDS ORDERED: Midazolam* 1 MG/ML 5 ML VIAL (5 MG) ONE (14:50)
[2019-07-17] MEDS ORDERED: Lidocaine 2% VISCOUS* 15 ML UDC ONE (14:50)
--- NOTE | 2019-07-17 15:59 | TEE ---
*[facility]* [place] [address] Fax #: [phone] Transesophageal Echocardiogram Patient: Mitchell Traore : 1935 Study Date: 07/17/2019 Age: 84 Gender: M HR: 109 bpm Height: 63 in /160 cm BSA: 2.16 m^2 Weight: 220 lb /100 kg BMI: 39.1 kg/m^2 *Photoengraving Helper: * Radha Benitez [facility] *Referring Physician: * Jerome Lebron MD *Reading Physician: * Jerome Lebron MD Indications: Atrial Fibrillation. History: Atrial fibrillation. Coronary artery disease. Labs, prior tests, procedures, and surgery: Coronary artery bypass grafting. Conclusions Summary: - Left ventricle: Systolic function is at the lower limits of normal. The estimated ejection fraction is 50-55%. Wall motion is normal; there are no regional wall motion abnormalities. - Left atrium: There is no evidence of a thrombus in the atrial cavity or appendage. - Atrial septum: A PFO is not demonstrated by color Doppler or agitated saline contrast. - Mitral valve: There is mild regurgitation. - Aortic valve: There is no evidence of stenosis. There is mild regurgitation. - Tricuspid valve: There is mild regurgitation. - Ascending aorta: The ascending aorta is moderately dilated. - Pericardium, extracardiac: There is no significant pericardial effusion. Study data: Diagnostic Transesophageal Echocardiogram Consent: The risks and benefits of the procedure, including alternatives were discussed with the patient and/or their health care life assurance representative and written informed consent was obtained. Procedure: Initial setup: The patient was brought to the laboratory in the fasting state.Intravenous access was obtained. Surface ECG leads, heart rate, heart rhythm, blood pressure measurements, pulse oximetric signals, and mainstream end-tidal CO2 tracings were monitored throughout the procedure. Sedation. Moderate sedation was administered by nursing staff. History and physical as well as labs were reviewed. An oral bite block was inserted for protection of oral dentition. The patient was placed in the left lateral decubitus position. Topical anesthesia was obtained using viscous lidocaine. A transesophageal probe was inserted by the attending box office manager. Transesophageal echocardiography was performed, image quality was good, and all standard views were attempted within the limitations of patient tolerance and safety. Multiple 2D, color flow Doppler and spectral Doppler images were obtained. The transesophageal probe was removed. There was no blood loss.No specimens obtained.No tubes, implants, or drains. A bubble study was performed. Location: ICU Patient status: Inpatient. Patient room number: 2. Study completion: The patient tolerated the procedure well. There were no complications. Administered medications: Midazolam, 3mg. Fentanyl, 25mcg. Rhythm: Atrial fibrillation. Findings Left ventricle: The cavity size is normal. Systolic function is at the lower limits of normal. The estimated ejection fraction is 50-55%. Wall motion is normal; there are no regional wall motion abnormalities. Right ventricle: The cavity size is normal. Systolic function is normal. Left atrium: The atrium is severely dilated. Emptying velocity is normal. There is no evidence of a thrombus in the atrial cavity or appendage. Right atrium: The atrium is moderately dilated. Atrial septum: A PFO is not demonstrated by color Doppler or agitated saline contrast. Negative bubble study. Mitral valve: The leaflets are normal thickness. There is no evidence of stenosis. There is mild regurgitation. Aortic valve: The annulus is mildly calcified. The valve is trileaflet. The leaflets are normal thickness. There is no evidence of stenosis. There is mild regurgitation. Tricuspid valve: The leaflets are normal thickness. There is no evidence of stenosis. There is mild regurgitation. Pulmonic valve: The leaflets are normal thickness. There is no evidence of stenosis. There is no significant regurgitation. Aorta: Aortic root: The aortic root is appears normal. Ascending aorta: The ascending aorta is moderately dilated. Pericardium: There is no significant pericardial effusion. Pulmonary arteries: The main pulmonary artery is normal-sized. Systemic veins: Inferior vena cava: The vessel is normal in size. Superior vena cava: The vessel is appears normal. Measurements Aortic valve Value Ref Tricuspid valve Value Ref Ewelina diam, ED 2.3 cm ---- TR peak v 2.2 m/sec <=2.8 Ewelina diam/bsa, ED 1.1 cm/m^2 ---- Peak RV-RA grad, S 19 mm Hg ----- Peak v, S 1.68 m/sec ---- Peak grad, S 11.0 mm Hg ---- Aortic root Value Ref Root diam 3.3 cm <4.3 Mitral valve Value Ref Peak E 1.14 m/sec ---- Ascending aorta Value Ref Decel time 179 ms ---- AAo AP diam, S 4.4 cm ----- Peak grad, D 5.2 mm Hg ---- Legend: (L) and (H) mely values outside specified reference range. Prepared and electronically signed by Jerome Lebron MD 07/17/2019 15:59
--- NOTE | 2019-07-17 16:12 | PRO ---
CARDIOVERSION NOTE: DATE OF PROCEDURE: 07/17/19 - ROOM #ICU-02 PROCEDURE: Cardioversion. INDICATION: Atrial fibrillation. HISTORY: The patient is an 84-year-old gentleman with a history of coronary artery disease who recently underwent knee replacement surgery. The patient had postoperative atrial fibrillation. He has had [id number] rhythms and also some degree of congestive heart failure since his surgery last week. The patient is on Cardizem drip and an amiodarone drip. The patient has just undergone transesophageal echocardiogram showing no evidence of thrombus in his left atrial appendage. No significant valvular abnormalities. DESCRIPTION OF PROCEDURE: The patient was given an additional 1 mg of Versed for conscious sedation. He was cardioverted with 150 joules of synchronized biphasic energy. The patient had a few beats of normal sinus rhythm and then reverted back to atrial fibrillation. A second shock at 150 joules resulted in no episodes of normal sinus rhythm. The patient was given additional 1 mg of Versed. A third cardioversion with 200 joules of synchronized biphasic energy resulted in a cardioversion to normal sinus rhythm again for about 10 seconds and then reverted back to atrial fibrillation. At that time, the decision was made to stop and try to maintain rate control and repeat cardioversion in the future. [id number]/[facility] #: [id number] MICHAEL
[2019-07-17] MEDS: Allopurinol TAB* 300 MG PO SCH (18:18)
[2019-07-17] MEDS: Atorvastatin* 40 MG TAB PO SCH (20:54)
[2019-07-17] MEDS: Amiodarone TAB* 400 MG PO SCH (20:54)
[2019-07-17] MEDS: Diltiazem TAB* 30 MG PO SCH (20:56)
[2019-07-17] MEDS ORDERED: Fluticasone NASAL SPRAY 50MCG* 16 gm SPRAY BTL BOTH NARES ONE (21:30)
[2019-07-18] MEDS: Diltiazem TAB* 30 MG PO SCH ×4 (00:13→17:35)
[2019-07-18] MEDS: methylPREDNISolone SOD 40 MG* 1 ML VIAL IV SCH ×2 (00:13→08:45)
[2019-07-18] MEDS: Albuterol/Ipratropium NEB.SOL* Albuterol 2.5 MG/Ipratropium 0.5 MG 3 ML INH PRN (03:54)
[2019-07-18 04:46] LABS: ABS Lymphocytes 3.7 10^3/ul (1.0-4.8); ABS Monocytes 0.3 10^3/ul (0-0.8); ABS Neutrophils 7.2 10^3/ul (1.5-7.7); Hematocrit 26 % (42-52); Hemoglobin 8.7 g/dL (14.0-18.0); Mean Corpuscular HGB Conc 34 g/dL (31-36); Mean Corpuscular Hemoglobin 35 pg (27-31); Mean Corpuscular Volume 104 fL (80-94); Platelet Count 129 10^3/uL (150-450); Red Blood Count 2.45 10^6 /uL (4.18-5.48); Red Cell Distribution Width 15 % (10-15); White Blood Count 11.3 10^3/uL (3.5-10.8)
[2019-07-18 05:03] LABS: BUN/Creatinine Ratio 23.9 (8-20); Calcium 8.3 mg/dL (8.6-10.3); EGFR African American 34.3 (>60); EGFR Non-African American 28.4 (>60)
[2019-07-18] MEDS: Acetaminophen TAB* 325 MG PO SCH ×3 (05:08→21:50)
[2019-07-18] MEDS ORDERED: NS 0.9% 1000 ML** 1,000 ML IV SCH (05:45)
[2019-07-18] MEDS: Magnesium Hydroxide LIQ* 30 ML UDC PO SCH ×2 (08:46→21:50)
[2019-07-18] MEDS: Apixaban* 2.5 MG TAB PO SCH ×2 (08:53→21:50)
[2019-07-18] MEDS: Citalopram TAB* 20 MG PO SCH (08:53)
[2019-07-18] MEDS: Amiodarone TAB* 400 MG PO SCH ×2 (08:53→21:49)
[2019-07-18] MEDS: Fluticasone NASAL SPRAY 50MCG* 16 gm SPRAY BTL BOTH NARES SCH (08:53)
[2019-07-18] MEDS: Docusate CAP* 100 MG PO SCH ×2 (08:53→21:49)
[2019-07-18] MEDS: Vitamin THERAPEUTIC TAB PO SCH (08:54)
[2019-07-18] MEDS: Pantoprazole TAB * 40 MG TAB PO SCH (08:54)
[2019-07-18] MEDS: Metoprolol Tartrate TAB* 25 MG PO SCH ×3 (08:54→21:50)
[2019-07-18] MEDS: Polyethylene Glycol 3350* 17 GM PACKET PO SCH (08:54)
--- NOTE | 2019-07-18 08:54 | PN ---
Subjective Date of Service: 07/18/19 Interval History: Patient has no complaints. Says breathing is better than yesterday. He denies chest pain, palpitations. Wants to start PT LT knee. Pain is mild. Family History: Unchanged from Admission Social History: Unchanged from Admission Past Medical History: Unchanged from Admission Objective Active Medications: Acetaminophen (Tylenol Tab*) 975 mg PO Q8HR [facility] Last Admin: 07/18/19 05:08 Dose: Not Given Albuterol/Ipratropium (Duoneb (Albuterol 2.5 Mg/Ipratropium 0.5 Mg)) 1 neb INH Q4H PRN PRN Reason: SOB/WHEEZING Last Admin: 07/18/19 03:54 Dose: 1 neb Allopurinol (Zyloprim Tab*) 100 mg PO QPM [facility] Amiodarone HCl (Cordarone Tab*) 400 mg PO BID [facility] Last Admin: 07/17/19 20:54 Dose: 400 mg Apixaban (Eliquis*) 2.5 mg PO BID [facility] Last Admin: 07/17/19 21:06 Dose: 2.5 mg Atorvastatin Calcium (Lipitor*) 40 mg PO BEDTIME [facility] Last Admin: 07/17/19 20:54 Dose: 40 mg Bisacodyl (Dulcolax Supp*) 10 mg DC DAILY PRN PRN Reason: CONSTIPATION Citalopram Hydrobromide (Celexa Tab*) 20 mg PO DAILY [facility] Last Admin: 07/17/19 10:29 Dose: 20 mg Cyclobenzaprine HCl (Flexeril Tab*) 10 mg PO Q6H PRN PRN Reason: SPASMS Last Admin: 07/11/19 22:29 Dose: 10 mg Diltiazem HCl (Cardizem Tab*) 30 mg PO Q6HR [facility] Last Admin: 07/18/19 05:57 Dose: Not Given Docusate Sodium (Colace Cap*) 100 mg PO BID [facility] Last Admin: 07/17/19 20:54 Dose: 100 mg Fluticasone Propionate (Flonase Nasal [place] 50mcg*) 2 spray BOTH NARES DAILY [facility] Last Admin: 07/17/19 09:00 Dose: 2 spray Heparin Sodium (Porcine) (Heparin Flush Picc/Ml/Cvc(*)) 1 - 3 ml FLUSH 0600, 1800 [facility]; Protocol Last Admin: 07/18/19 06:05 Dose: Not Given Sodium Chloride (Ns 0.9% 1000 Ml) 1,000 mls @ 100 mls/hr IV PER RATE [facility] Last Admin: 07/18/19 05:54 Dose: 100 mls/hr Ipratropium [place] (Atrovent 0.5 Mg Neb.Zaida*) 0.5 mg INH Q4H PRN PRN Reason: SOB/WHEEZING Last Admin: 07/16/19 21:17 Dose: 0.5 mg Lactulose (Lactulose*) 30 ml PO BID PRN PRN Reason: CONSTIPATION Last Admin: 07/15/19 12:55 Dose: 30 ml Magnesium Hydroxide (Milk Of Magnesia Liq*) 30 ml PO BID [facility] Last Admin: 07/18/19 08:46 Dose: Not Given Metoprolol Tartrate (Lopressor Tab*) 50 mg PO TID [facility] Last Admin: 07/17/19 20:54 Dose: 50 mg Multivitamins (Theragran Tab*) 1 tab PO DAILY [facility] Last Admin: 07/17/19 10:30 Dose: 1 tab Ondansetron HCl (Zofran Inj*) 4 mg IV Q6H PRN PRN Reason: NAUSEA Last Admin: 07/11/19 20:40 Dose: 4 mg Ondansetron HCl (Zofran Odt Tab*) 4 mg PO Q6H PRN PRN Reason: NAUSEA Oxycodone/Acetaminophen (Percocet 5/325 Tab*) 1 tab PO Q4H PRN PRN Reason: PAIN - MODERATE Last Admin: 07/12/19 18:45 Dose: 1 tab Oxycodone/Acetaminophen (Percocet 5/325 Tab*) 2 tab PO Q4H PRN PRN Reason: PAIN - SEVERE Last Admin: 07/12/19 12:43 Dose: 2 tab Pantoprazole Sodium (Protonix Tab*) 40 mg PO QAM [facility] Last Admin: 07/17/19 10:30 Dose: 40 mg Polyethylene Glycol/Electrolytes (Miralax*) 17 gm PO DAILY [facility] Last Admin: 07/17/19 09:15 Dose: Not Given Sodium Biphosphate/Sodium Phosphate (Fleet Enema*) 1 bottle DC ONCE PRN PRN Reason: CONSTIPATION Temazepam (Restoril Cap*) 15 mg PO BEDTIME PRN PRN Reason: INSOMNIA Vital Signs - 8 hr 07/18/19 07/18/19 07/18/19 01:00 01:31 02:00 Temperature Pulse Rate 101 104 106 Respiratory 24 24 23 Rate Blood Pressure 124/65 117/77 114/79 (mmHg) O2 Sat by Pulse 94 92 92 Oximetry 07/18/19 07/18/19 07/18/19 07:06 07:31 08:00 Temperature 37.2 C Pulse Rate 80 86 82 Respiratory 14 22 24 Rate Blood Pressure 102/70 102/48 (mmHg) O2 Sat by Pulse 95 95 93 Oximetry 07/18/19 07/18/19 07/18/19 08:01 08:31 08:41 Temperature Pulse Rate 82 92 Respiratory 17 22 22 Rate Blood Pressure 114/69 121/72 (mmHg) O2 Sat by Pulse 94 95 95 Oximetry Oxygen Devices in Use Now: Nasal Cannula Appearance: alert, no distress Eyes: No Scleral Icterus Ears/Nose/Mouth/Throat: NL Teeth, Lips, Gums Neck: NL Appearance and Movements; NL JVP Respiratory: Symmetrical Chest Expansion and Respiratory Effort, Clear to Auscultation Cardiovascular: No Edema, - - irregular, no murmur Abdominal: NL Sounds; No Tenderness; No Distention, No Hepatosplenomegaly Neurological: Alert and Oriented x 3 Lines/Tubes/Other Access: Clean, Dry and Intact PICC Line Nutrition: Taking PO's Result Diagrams: 07/18/19 04:35 07/18/19 04:35 EKG Data: EKG overnight showed NSR, PACs Telemetry shows a-fib, 79 bpm Assess/Plan/Problems-Billing Assessment: Mr. Traore is an 84 yo M with PMH of CAD/CABG, afib, HTN, gout, GERD and OA; that [place] [facility] [place] that has had post-operative episodes of afib with RVR and VT vs SVT on 07/12/19. - Patient Problems (1) Atrial fibrillation with RVR Current Visit: Yes Status: Acute Priority: High Code(s): I48.91 - UNSPECIFIED ATRIAL FIBRILLATION SNOMED Code(s): 784006922664919 Comment: - Cardioversion yesterday did not attain NSR - Continue anticoagulation w/ eliquis and rate control with metoprolol and diltiazem - May remain in NSR after a few more days of amiodarone (2) Status post left knee replacement Current Visit: Yes Status: Acute Priority: Medium Code(s): Z96.652 - PRESENCE OF LEFT ARTIFICIAL KNEE JOINT SNOMED Code(s): 4677715497951 Comment: - POD #7 - Management per Ortho - May be OOB to chair with passive ROM with PT - Continue pain management and bowel regimen (3) V-tach Current Visit: Yes Status: Acute Priority: High Code(s): I47.2 - VENTRICULAR TACHYCARDIA SNOMED Code(s): 95192134 Comment: - Resolved - Transitioned to oral amiodarone after discussion w/ Dr. Lebron (4) DVT prophylaxis Current Visit: Yes Status: Acute Priority: Low Code(s): Z29.9 - ENCOUNTER FOR PROPHYLACTIC MEASURES, UNSPECIFIED SNOMED Code(s): 414462271 Comment: - Continue Eliquis (renal dosing) (5) CKD (chronic kidney disease), stage II Current Visit: Yes Status: Acute Priority: Medium Code(s): N18.2 - CHRONIC KIDNEY DISEASE, STAGE 2 (MILD) SNOMED Code(s): 681009485 Comment: -Creatinine up to 2.1. No retention on bladder scan. -Will encourage fluids today, recheck in AM. -Allopurinol decreased. No nephrotoxic agents identifed. -May have had poor renal perfusion with A-fib, RVR, diastolic dysfunction Status and Disposition: Inpatient. Can move to floor.
--- NOTE | 2019-07-18 09:24 | PN ---
Progress Note - Progress Note Date of Service: 07/18/19 SOAP: Subjective: []Pt seen at bedside. Knee pain is well controlled. He feels well and denies any chest pain, shortness of breath, dizziness. He is not nauseous, he has had low urine output but no urinary retention. Creatinine has increased, possibly due to low renal perfusion with cardiac arrhythmia. Cardioversion yesterday did not restore NSR, goal is to keep him rate controlled for which he will remain on metoprolol and diltiazem. He has been transitioned to PO amiodarone, hope to obtain sustained NSR over the next several days. Objective: []Gen: Appears well, NAD, laying comfortably in bed LLE: Left knee dressing changed, incision is CDI without erythema or discharge. Thigh is soft. DF/PF intact, DP2+, sensation intact to light touch distally. Calves supple and nontender without erythema, edema or palpable cords Assessment: []POD 7 sp LTK Plan: []WBAT PT to work with patient today, okayed per medicine Gaytan catheter to be removed. Patient is making only small amounts of urine but is not retaining. Eliquis for DVT prophylaxis. Needs 30 days for DVT prophylaxis post op, though longer duration and dosing to be guided by medicine/cardiology as indicated Transition to medicine service, ortho will continue to follow while in house Appreciate medicine and cardio input Vital Signs Temp 99 F 07/18/19 08:00 Pulse 92 07/18/19 08:31 Resp 22 07/18/19 08:41 BP 121/72 07/18/19 08:31 Pulse Ox 95 07/18/19 08:41 Intake & Output 07/17/19 07/18/19 07/18/19 18:59 06:59 18:59 Intake Total 142.8 640 Output Total 300 300 100 Balance -157.2 340 -100 Weight 238 lb 1.588 oz 241 lb 2.971 oz Intake: Medicated IV 142.8 CC - Amiodarone 105 GEN - Diltiazem/Cardizem 37.8 Oral 0 640 Output: Urine 300 300 100 Other: Date of Last Bowel 07/17/19 Movement # Bowel Movements 1 Estimated Stool Amount Medium Laboratory Last Values WBC 11.3 10^3/uL (3.5-10.8) H 07/18/19 04:35 RBC 2.45 10^6 /uL (4.18-5.48) L 07/18/19 04:35 Hgb 8.7 g/dL (14.0-18.0) L 07/18/19 04:35 Hct 26 % (42-52) L 07/18/19 04:35 MCV 104 fL (80-94) H 07/18/19 04:35 MCH 35 pg (27-31) H 07/18/19 04:35 MCHC 34 g/dL (31-36) 07/18/19 04:35 RDW 15 % (10-15) 07/18/19 04:35 Plt Count 129 10^3/uL (150-450) L 07/18/19 04:35 MPV 9.0 fL (7.4-10.4) 07/18/19 04:35 Neut % (Auto) 63.9 % 07/18/19 04:35 Lymph % (Auto) 33.0 % 07/18/19 04:35 [place] % (Auto) 3.0 % 07/18/19 04:35 Eos % (Auto) 0.0 % 07/18/19 04:35 Baso % (Auto) 0.1 % 07/18/19 04:35 Absolute Neuts (auto) 7.2 10^3/ul (1.5-7.7) 07/18/19 04:35 Absolute Lymphs (auto) 3.7 10^3/ul (1.0-4.8) 07/18/19 04:35 Absolute Monos (auto) 0.3 10^3/ul (0-0.8) 07/18/19 04:35 Absolute Eos (auto) 0.0 10^3/ul (0-0.6) 07/18/19 04:35 Absolute Basos (auto) 0.0 10^3/ul (0-0.2) 07/18/19 04:35 Absolute Nucleated RBC 0.0 10^3/ul 07/18/19 04:35 Nucleated RBC % 0.0 07/18/19 04:35 Sodium 133 mmol/L (135-145) L 07/18/19 04:35 Potassium 4.0 mmol/L (3.5-5.0) 07/18/19 04:35 Chloride 99 mmol/L (101-111) L 07/18/19 04:35 Carbon Dioxide 27 mmol/L (22-32) 07/18/19 04:35 Anion Gap 7 mmol/L (2-11) 07/18/19 04:35 BUN 53 mg/dL (6-24) H 07/18/19 04:35 Creatinine 2.22 mg/dL (0.67-1.17) H 07/18/19 04:35 Est GFR ( Amer) 34.3 (>60) 07/18/19 04:35 Est GFR (Non-Af Amer) 28.4 (>60) 07/18/19 04:35 BUN/Creatinine Ratio 23.9 (8-20) H 07/18/19 04:35 Glucose 186 mg/dL (70-100) H 07/18/19 04:35 Calcium 8.3 mg/dL (8.6-10.3) L 07/18/19 04:35 Magnesium 2.5 mg/dL (1.9-2.7) 07/17/19 06:00 Total Bilirubin 0.60 mg/dL (0.2-1.0) 07/17/19 06:00 AST 44 U/L (13-39) H 07/17/19 06:00 ALT 20 U/L (7-52) 07/17/19 06:00 Alkaline Phosphatase 74 U/L (34-104) 07/17/19 06:00 Troponin I 0.03 ng/mL (<0.03) H* 07/13/19 04:35 Total Protein 5.5 g/dL (6.4-8.9) L 07/17/19 06:00 Albumin 3.0 g/dL (3.2-5.2) L 07/17/19 06:00 Globulin 2.5 g/dL (2-4) 07/17/19 06:00 Albumin/Globulin Ratio 1.2 (1-3) 07/17/19 06:00 TSH 5.68 mcIU/mL (0.34-5.60) H 07/16/19 09:52 Urine Color Yellow 07/16/19 17:05 Urine Appearance Cloudy 07/16/19 17:05 Urine pH 5.0 (5-9) 07/16/19 17:05 Ur Specific [place] 1.026 (1.010-1.030) 07/16/19 17:05 Urine Protein Negative (Negative) 07/16/19 17:05 Urine Ketones Negative (Negative) 07/16/19 17:05 Urine Blood Negative (Negative) 07/16/19 17:05 Urine Nitrate Negative (Negative) 07/16/19 17:05 Urine Bilirubin Negative (Negative) 07/16/19 17:05 Urine Urobilinogen Negative (Negative) 07/16/19 17:05 Ur Leukocyte Esterase Negative (Negative) 07/16/19 17:05 Urine WBC (Auto) Trace(0-5/hpf) (Absent) 07/12/19 11:58 Urine RBC (Auto) 3+(>10/hpf) (Absent) A 07/12/19 11:58 Urine Bacteria Absent (Absent) 07/12/19 11:58 Hyaline Casts Present (Absent) A 07/12/19 11:58 Urine Glucose Negative (Negative) 07/16/19 17:05 Blood Type A Negative 07/14/19 05:13 Antibody Screen Negative 07/14/19 05:13 Crossmatch See Detail 07/14/19 05:13
[2019-07-18] MEDS: Ipratropium 0.5MG/2.5ML NEB* 0.5 MG/2.5 ML NEB.SOLN INH PRN (14:27)
[2019-07-18] MEDS: Allopurinol TAB* 100 MG PO SCH (17:35)
[2019-07-18] MEDS: Atorvastatin* 40 MG TAB PO SCH (21:49)
[2019-07-19] MEDS: Acetaminophen TAB* 325 MG PO SCH ×3 (05:52→21:41)
[2019-07-19] MEDS: Diltiazem TAB* 30 MG PO SCH ×3 (05:53→11:53)
[2019-07-19] MEDS: Ipratropium 0.5MG/2.5ML NEB* 0.5 MG/2.5 ML NEB.SOLN INH PRN ×2 (07:16→22:39)
[2019-07-19 07:46] LABS: ABS Lymphocytes 7.5 10^3/ul (1.0-4.8); ABS Monocytes 0.7 10^3/ul (0-0.8); ABS Neutrophils 8.4 10^3/ul (1.5-7.7); Hematocrit 27 % (42-52); Hemoglobin 9.2 g/dL (14.0-18.0); Lymphocyte % 45.3 %; Mean Corpuscular HGB Conc 34 g/dL (31-36); Mean Corpuscular Hemoglobin 36 pg (27-31); Mean Corpuscular Volume 104 fL (80-94); Mean Platelet Volume 9.1 fL (7.4-10.4); Platelet Count 164 10^3/uL (150-450); Red Blood Count 2.59 10^6 /uL (4.18-5.48); Red Cell Distribution Width 15 % (10-15); White Blood Count 16.6 10^3/uL (3.5-10.8)
[2019-07-19 07:53] LABS: Calcium 8.5 mg/dL (8.6-10.3); Potassium 4.1 mmol/L (3.5-5.0)
[2019-07-19 07:58] LABS: BUN/Creatinine Ratio 30.3 (8-20); EGFR African American 33.3 (>60); EGFR Non-African American 27.5 (>60); Uric Acid 5.4 mg/dL (4.4-7.6)
[2019-07-19] MEDS: Pantoprazole TAB * 40 MG TAB PO SCH (08:42)
[2019-07-19] MEDS: Amiodarone TAB* 400 MG PO SCH ×2 (08:42→21:40)
[2019-07-19] MEDS: Apixaban* 2.5 MG TAB PO SCH ×2 (08:42→21:41)
[2019-07-19] MEDS: Metoprolol Tartrate TAB* 25 MG PO SCH (08:43)
[2019-07-19] MEDS: Docusate CAP* 100 MG PO SCH ×2 (08:43→21:41)
[2019-07-19] MEDS: Citalopram TAB* 20 MG PO SCH (08:43)
[2019-07-19] MEDS: Vitamin THERAPEUTIC TAB PO SCH (08:43)
[2019-07-19] MEDS: Fluticasone NASAL SPRAY 50MCG* 16 gm SPRAY BTL BOTH NARES SCH (08:44)
[2019-07-19] MEDS: Magnesium Hydroxide LIQ* 30 ML UDC PO SCH ×2 (08:45→21:41)
[2019-07-19] MEDS: Polyethylene Glycol 3350* 17 GM PACKET PO SCH (08:46)
--- NOTE | 2019-07-19 14:32 | PN ---
Subjective Date of Service: 07/19/19 Interval History: Patient feels OK today. He took some steps with PT. States breathing is fine. Pain in LT knee is moderate. Family History: Unchanged from Admission Social History: Unchanged from Admission Past Medical History: Unchanged from Admission Objective Active Medications: Acetaminophen (Tylenol Tab*) 975 mg PO Q8HR [facility] Last Admin: 07/19/19 13:54 Dose: Not Given Allopurinol (Zyloprim Tab*) 100 mg PO QPM [facility] Last Admin: 07/18/19 17:35 Dose: 100 mg Amiodarone HCl (Cordarone Tab*) 400 mg PO BID [facility] Last Admin: 07/19/19 08:42 Dose: 400 mg Apixaban (Eliquis*) 2.5 mg PO BID [facility] Last Admin: 07/19/19 08:42 Dose: 2.5 mg Atorvastatin Calcium (Lipitor*) 40 mg PO BEDTIME [facility] Last Admin: 07/18/19 21:49 Dose: 40 mg Bisacodyl (Dulcolax Supp*) 10 mg [place] DAILY PRN PRN Reason: CONSTIPATION Citalopram Hydrobromide (Celexa Tab*) 20 mg PO DAILY [facility] Last Admin: 07/19/19 08:43 Dose: 20 mg Cyclobenzaprine HCl (Flexeril Tab*) 10 mg PO Q6H PRN PRN Reason: SPASMS Last Admin: 07/11/19 22:29 Dose: 10 mg Diltiazem HCl (Cardizem Cd Cap*) 120 mg PO DAILY [facility] Docusate Sodium (Colace Cap*) 100 mg PO BID [facility] Last Admin: 07/19/19 08:43 Dose: 100 mg Fluticasone Propionate (Flonase Nasal [place] 50mcg*) 2 spray BOTH NARES DAILY [facility] Last Admin: 07/19/19 08:44 Dose: 2 spray Heparin Sodium (Porcine) (Heparin Flush Picc/Ml/Cvc(*)) 1 - 3 ml FLUSH 0600, 1800 [facility]; Protocol Last Admin: 07/19/19 05:52 Dose: 1 ml Ipratropium [place] (Atrovent 0.5 Mg Neb.Zaida*) 0.5 mg INH Q4H PRN PRN Reason: SOB/WHEEZING Last Admin: 07/19/19 07:16 Dose: 0.5 mg Lactulose (Lactulose*) 30 ml PO BID PRN PRN Reason: CONSTIPATION Last Admin: 07/15/19 12:55 Dose: 30 ml Magnesium Hydroxide (Milk Of Magnesia Liq*) 30 ml PO BID [facility] Last Admin: 07/19/19 08:45 Dose: Not Given Metoprolol Tartrate (Lopressor Tab*) 50 mg PO Q12HR [facility] Multivitamins (Theragran Tab*) 1 tab PO DAILY [facility] Last Admin: 07/19/19 08:43 Dose: 1 tab Ondansetron HCl (Zofran Inj*) 4 mg IV Q6H PRN PRN Reason: NAUSEA Last Admin: 07/11/19 20:40 Dose: 4 mg Oxycodone/Acetaminophen (Percocet 5/325 Tab*) 1 tab PO Q4H PRN PRN Reason: PAIN - MODERATE Last Admin: 07/12/19 18:45 Dose: 1 tab Oxycodone/Acetaminophen (Percocet 5/325 Tab*) 2 tab PO Q4H PRN PRN Reason: PAIN - SEVERE Last Admin: 07/12/19 12:43 Dose: 2 tab Pantoprazole Sodium (Protonix Tab*) 40 mg PO QAM [facility] Last Admin: 07/19/19 08:42 Dose: 40 mg Polyethylene Glycol/Electrolytes (Miralax*) 17 gm PO DAILY [facility] Last Admin: 07/19/19 08:46 Dose: 17 gm Temazepam (Restoril Cap*) 15 mg PO BEDTIME PRN PRN Reason: INSOMNIA Vital Signs - 8 hr 07/19/19 07/19/19 07/19/19 07:15 08:00 11:15 Temperature 36.6 C 36.8 C Pulse Rate 73 66 Respiratory 20 20 18 Rate Blood Pressure 101/43 102/57 (mmHg) O2 Sat by Pulse 99 99 99 Oximetry 07/19/19 13:46 Temperature Pulse Rate 76 Respiratory Rate Blood Pressure 110/59 (mmHg) O2 Sat by Pulse Oximetry Oxygen Devices in Use Now: Nasal Cannula Appearance: alert, no distress Respiratory: Symmetrical Chest Expansion and Respiratory Effort, Clear to Auscultation Cardiovascular: NL Sounds; No Murmurs; No JVD - irregular, - - 1+ edema bilat LE Abdominal: NL Sounds; No Tenderness; No Distention, No Hepatosplenomegaly Neurological: Alert and Oriented x 3 Lines/Tubes/Other Access: Clean, Dry and Intact Peripheral IV, Clean, Dry and Intact Other Access - midline RUE Nutrition: Taking PO's Result Diagrams: 07/19/19 06:10 07/19/19 06:10 Microbiology and Other Data: Microbiology 07/16/19 15:11 Blood Venous Blood MRSA/MSSA (PCR) - Final Mrsa Negative S.aureus Negative 07/16/19 15:11 Blood Venous Aerobic Blood Culture - Final 07/16/19 15:11 Blood Venous Blood MRSA/MSSA (PCR) - Final Staphylococcus Epidermidis Staphylococcus Epidermidis Mrsa Negative S.aureus Negative Assess/Plan/Problems-Billing Assessment: Mr. Traore is an 84 yo M with PMH of CAD/CABG, afib, HTN, gout, GERD and OA; that [place] [facility] [place] that has had post-operative episodes of afib with RVR and VT vs SVT on 07/12/19. - Patient Problems (1) Atrial fibrillation with RVR Current Visit: Yes Status: Acute Priority: High Code(s): I48.91 - UNSPECIFIED ATRIAL FIBRILLATION SNOMED Code(s): 977108937598476 Comment: - Attempted cardioversion 07/17 did not attain NSR - Continue anticoagulation w/ eliquis and rate control with metoprolol and diltiazem - May remain in NSR after a few more days of amiodarone (2) Status post left knee replacement Current Visit: Yes Status: Acute Priority: Medium Code(s): Z96.652 - PRESENCE OF LEFT ARTIFICIAL KNEE JOINT SNOMED Code(s): 1990921145935 Comment: - POD #8 - Management per Ortho - May be OOB to chair and walk with PT - Continue pain management and bowel regimen (3) V-tach Current Visit: Yes Status: Acute Priority: High Code(s): I47.2 - VENTRICULAR TACHYCARDIA SNOMED Code(s): 30607226 Comment: - Changed to q24h dosing diltiazem - Resolved - Transitioned to oral amiodarone after discussion w/ Dr. Lebron (4) DVT prophylaxis Current Visit: Yes Status: Acute Priority: Low Code(s): Z29.9 - ENCOUNTER FOR PROPHYLACTIC MEASURES, UNSPECIFIED SNOMED Code(s): 818180456 Comment: - Continue Eliquis (renal dosing) (5) CKD (chronic kidney disease), stage II Current Visit: Yes Status: Acute Priority: Medium Code(s): N18.2 - CHRONIC KIDNEY DISEASE, STAGE 2 (MILD) SNOMED Code(s): 710520802 Comment: -Creatinine up again, not severely. No retention on bladder scan. -Will encourage fluids today, recheck in AM. -No nephrotoxic agents identifed. -May have had poor renal perfusion; should allow SBP to drift up into 130-15 range, reduced dose metoprolol (6) Leukocytosis Current Visit: Yes Status: Acute Priority: Medium Code(s): D72.829 - ELEVATED WHITE BLOOD CELL COUNT, UNSPECIFIED SNOMED Code(s): 400009190 Comment: -WBC had been trending down -afebrile -Will check UA, CXR Status and Disposition: Inpatient. Can move to floor.
[2019-07-19 16:18] LABS: Urine Appearance Clear; Urine Bilirubin Negative (Negative); Urine Blood Negative (Negative); Urine Color Yellow; Urine Glucose Negative (Negative); Urine Ketones Negative (Negative); Urine Nitrite Negative (Negative); Urine Protein Negative (Negative); Urine Specific Gravity 1.018 (1.010-1.030); Urine Urobilinogen Negative (Negative)
--- NOTE | 2019-07-19 16:36 | PN ---
Progress Note - Progress Note Date of Service: 07/19/19 SOAP: Subjective: [] Pt seen at bedside. He denies any CP, irregular heartbeats, SOB, dizziness, abd pain, dysuria, nausea. Creatinine slowly elevating. No longer tachycardic, HR into the 60s today Objective: [] Gen: NAD, laying comfortably in bed LLE: Left knee incision is CDI without erythema or discharge. Thigh is soft. DF/ PF intact, DP2+, sensation intact to light touch distally. Calves supple and nontender without erythema, edema or palpable cords Assessment: []POD 8 sp LTK Plan: []WBAT PT Eliquis for DVT prophylaxis. Needs 30 days for DVT prophylaxis post op, though longer duration and dosing to be guided by medicine/cardiology as indicated Ortho will continue to follow while in house Appreciate medicine and cardio input Vital Signs Temp 98.3 F 07/19/19 15:15 Pulse 60 07/19/19 15:15 Resp 20 07/19/19 15:15 BP 90/50 07/19/19 15:15 Pulse Ox 98 07/19/19 16:00 Intake & Output 07/19/19 07/19/19 07/20/19 06:59 18:59 06:59 Intake Total 480 1380 Output Total 0 225 Balance 480 1155 Intake: Oral 480 1380 Output: Urine 0 225 Other: Estimated Stool Amount Small Laboratory Last Values WBC 16.6 10^3/uL (3.5-10.8) H 07/19/19 06:10 RBC 2.59 10^6 /uL (4.18-5.48) L 07/19/19 06:10 Hgb 9.2 g/dL (14.0-18.0) L 07/19/19 06:10 Hct 27 % (42-52) L 07/19/19 06:10 MCV 104 fL (80-94) H 07/19/19 06:10 MCH 36 pg (27-31) H 07/19/19 06:10 MCHC 34 g/dL (31-36) 07/19/19 06:10 RDW 15 % (10-15) 07/19/19 06:10 Plt Count 164 10^3/uL (150-450) 07/19/19 06:10 MPV 9.1 fL (7.4-10.4) 07/19/19 06:10 Neut % (Auto) 50.7 % 07/19/19 06:10 Lymph % (Auto) 45.3 % 07/19/19 06:10 [place] % (Auto) 4.0 % 07/19/19 06:10 Eos % (Auto) 0.0 % 07/19/19 06:10 Baso % (Auto) 0.0 % 07/19/19 06:10 Absolute Neuts (auto) 8.4 10^3/ul (1.5-7.7) H 07/19/19 06:10 Absolute Lymphs (auto) 7.5 10^3/ul (1.0-4.8) H 07/19/19 06:10 Absolute Monos (auto) 0.7 10^3/ul (0-0.8) 07/19/19 06:10 Absolute Eos (auto) 0.0 10^3/ul (0-0.6) 07/19/19 06:10 Absolute Basos (auto) 0.0 10^3/ul (0-0.2) 07/19/19 06:10 Absolute Nucleated RBC 0.0 10^3/ul 07/19/19 06:10 Nucleated RBC % 0.0 07/19/19 06:10 Hem Pathologist Commnt 07/19/19 06:10 Patient Temperature Not Reportable 07/18/19 21:45 ABG pH 7.47 (7.35-7.45) H 07/18/19 21:45 ABG pH (Temp Correct) Not Reportable 07/18/19 21:45 ABG pCO2 37 mmHg (35-45) 07/18/19 21:45 ABG pCO2 (Temp Corrct Not Reportable 07/18/19 21:45 ABG pO2 89 mmHg (80-100) 07/18/19 21:45 ABG pO2 (Temp Correct Not Reportable 07/18/19 21:45 ABG HCO3 27.4 mmol/L (19-31) 07/18/19 21:45 ABG O2 Saturation 99.3 % (94.0-98.0) H 07/18/19 21:45 ABG Base Excess 3.2 mmol/L (-2.0-2.0) H 07/18/19 21:45 Respiration Rate Not Reportable 07/18/19 21:45 O2 Delivery Device nc 07/18/19 21:45 Ventilator Type Not Reportable 07/18/19 21:45 Vent Mode Not Reportable 07/18/19 21:45 FiO2 Not Reportable 07/18/19 21:45 Inspiratory Time Not Reportable 07/18/19 21:45 PEEP Not Reportable 07/18/19 21:45 Pressure Support Not Reportable 07/18/19 21:45 Pressure Control Not Reportable 07/18/19 21:45 EPAP Not Reportable 07/18/19 21:45 IPAP Not Reportable 07/18/19 21:45 BiPAP Not Reportable 07/18/19 21:45 Sodium 135 mmol/L (135-145) 07/19/19 06:10 Potassium 4.1 mmol/L (3.5-5.0) 07/19/19 06:10 Chloride 99 mmol/L (101-111) L 07/19/19 06:10 Carbon Dioxide 28 mmol/L (22-32) 07/19/19 06:10 Anion Gap 8 mmol/L (2-11) 07/19/19 06:10 BUN 69 mg/dL (6-24) H 07/19/19 06:10 Creatinine 2.28 mg/dL (0.67-1.17) H 07/19/19 06:10 Est GFR ( Amer) 33.3 (>60) 07/19/19 06:10 Est GFR (Non-Af Amer) 27.5 (>60) 07/19/19 06:10 BUN/Creatinine Ratio 30.3 (8-20) H 07/19/19 06:10 Glucose 117 mg/dL (70-100) H 07/19/19 06:10 Uric Acid 5.4 mg/dL (4.4-7.6) 07/19/19 06:10 Calcium 8.5 mg/dL (8.6-10.3) L 07/19/19 06:10 Magnesium 2.5 mg/dL (1.9-2.7) 07/17/19 06:00 Total Bilirubin 0.60 mg/dL (0.2-1.0) 07/17/19 06:00 AST 44 U/L (13-39) H 07/17/19 06:00 ALT 20 U/L (7-52) 07/17/19 06:00 Alkaline Phosphatase 74 U/L (34-104) 07/17/19 06:00 Troponin I 0.03 ng/mL (<0.03) H* 07/13/19 04:35 Total Protein 5.5 g/dL (6.4-8.9) L 07/17/19 06:00 Albumin 3.0 g/dL (3.2-5.2) L 07/17/19 06:00 Globulin 2.5 g/dL (2-4) 07/17/19 06:00 Albumin/Globulin Ratio 1.2 (1-3) 07/17/19 06:00 TSH 5.68 mcIU/mL (0.34-5.60) H 07/16/19 09:52 Urine Color Yellow 07/19/19 15:35 Urine Appearance Clear 07/19/19 15:35 Urine pH 5.0 (5-9) 07/19/19 15:35 Ur Specific [place] 1.018 (1.010-1.030) 07/19/19 15:35 Urine Protein Negative (Negative) 07/19/19 15:35 Urine Ketones Negative (Negative) 07/19/19 15:35 Urine Blood Negative (Negative) 07/19/19 15:35 Urine Nitrate Negative (Negative) 07/19/19 15:35 Urine Bilirubin Negative (Negative) 07/19/19 15:35 Urine Urobilinogen Negative (Negative) 07/19/19 15:35 Ur Leukocyte Esterase Negative (Negative) 07/19/19 15:35 Urine WBC (Auto) Trace(0-5/hpf) (Absent) 07/12/19 11:58 Urine RBC (Auto) 3+(>10/hpf) (Absent) A 07/12/19 11:58 Urine Bacteria Absent (Absent) 07/12/19 11:58 Hyaline Casts Present (Absent) A 07/12/19 11:58 Urine Glucose Negative (Negative) 07/19/19 15:35 Blood Type A Negative 07/14/19 05:13 Antibody Screen Negative 07/14/19 05:13 Crossmatch See Detail 07/14/19 05:13
[2019-07-19] MEDS: Allopurinol TAB* 100 MG PO SCH (18:18)
[2019-07-19] MEDS: Metoprolol Tartrate TAB* 50 mg PO SCH (21:41)
[2019-07-19] MEDS: Atorvastatin* 40 MG TAB PO SCH (21:41)
[2019-07-19] MEDS ORDERED: GuaiFENesin DM sugar free 100mg/10mg 5 ML UDC PO PRN (23:11)
[2019-07-20] MEDS: Ipratropium 0.5MG/2.5ML NEB* 0.5 MG/2.5 ML NEB.SOLN INH PRN (03:21)
[2019-07-20] MEDS: Acetaminophen TAB* 325 MG PO SCH (05:27)
[2019-07-20 05:32] LABS: ABS Monocytes 0.7 10^3/ul (0-0.8); ABS Neutrophils 5.9 10^3/ul (1.5-7.7); BUN/Creatinine Ratio 30.9 (8-20); Calcium 8.3 mg/dL (8.6-10.3); EGFR African American 37.2 (>60); EGFR Non-African American 30.7 (>60); Eosinophil % 0.1 %; Hematocrit 25 % (42-52); Hemoglobin 8.6 g/dL (14.0-18.0); Lymphocyte % 31.4 %; Mean Corpuscular HGB Conc 34 g/dL (31-36); Mean Corpuscular Hemoglobin 36 pg (27-31); Mean Corpuscular Volume 104 fL (80-94); Mean Platelet Volume 8.7 fL (7.4-10.4); Nucleated Red Blood Cells % 0.1; Platelet Count 135 10^3/uL (150-450); Potassium 3.9 mmol/L (3.5-5.0); Red Blood Count 2.42 10^6 /uL (4.18-5.48); Red Cell Distribution Width 16 % (10-15); White Blood Count 9.7 10^3/uL (3.5-10.8)
[2019-07-20] MEDS ORDERED: GuaiFENesin DM 100 mg/10 mg in 5 ML UDC PO PRN (08:02)
[2019-07-20 08:39] VITALS: BP 129/67
[2019-07-20] MEDS: Magnesium Hydroxide LIQ* 30 ML UDC PO SCH (08:46)
[2019-07-20] MEDS ORDERED: Diltiazem CD CAP* 120 MG PO SCH (09:00)
[2019-07-20] MEDS: Amiodarone TAB* 400 MG PO SCH (09:07)
[2019-07-20] MEDS: Fluticasone NASAL SPRAY 50MCG* 16 gm SPRAY BTL BOTH NARES SCH (09:07)
[2019-07-20] MEDS: Citalopram TAB* 20 MG PO SCH (09:08)
[2019-07-20] MEDS: Pantoprazole TAB * 40 MG TAB PO SCH (09:08)
[2019-07-20] MEDS: Apixaban* 2.5 MG TAB PO SCH (09:08)
[2019-07-20] MEDS: Vitamin THERAPEUTIC TAB PO SCH (09:08)
[2019-07-20] MEDS: Polyethylene Glycol 3350* 17 GM PACKET PO SCH (09:08)
[2019-07-20] MEDS: Metoprolol Tartrate TAB* 50 mg PO SCH (09:08)
[2019-07-20] MEDS: Docusate CAP* 100 MG PO SCH (09:08)
--- NOTE | 2019-07-20 23:21 | TRS ---
TRANSFER SUMMARY: DATE OF ADMISSION: 07/11/19 DATE OF TRANSFER: 07/20/19 PRIMARY DIAGNOSIS: Paroxysmal ventricular tachycardia. SECONDARY DIAGNOSES: 1. Atrial fibrillation with rapid ventricular response. 2. 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 3. Hypertension. 4. Hyperlipidemia. 5. Gastroesophageal reflux disease. 6. Coronary artery disease, status post bypass x2. 7. History of supraventricular tachycardia. 8. Thrombocytopenia. 9. Anemia due to blood loss. 10. Subclinical hypothyroidism. 11. Gout. 12. Anxiety. MEDICATIONS ON DISCHARGE: 1. Citalopram 20 mg p.o. q.a.m. 2. Omeprazole 20 mg p.o. q.a.m. 3. Acetaminophen 975 mg p.o. q.8 hours p.r.n. mild pain or temperature. 4. Allopurinol 100 mg p.o. q.p.m. 5. Amiodarone 400 mg p.o. b.i.d. 6. Apixaban 2.5 mg p.o. b.i.d. 7. Atorvastatin 40 mg p.o. at bedtime. 8. Bisacodyl suppository 10 mg OK daily p.r.n. constipation. 9. Diltiazem CD 120 mg p.o. daily. 10. Docusate 100 mg p.o. b.i.d. 11. Fluticasone nasal spray 2 sprays both nostrils daily. 12. Guaifenesin DM 5 mL p.o. q.4 hours p.r.n. cough. 13. Heparin flush for PICC line per protocol. 14. Ipratropium nebulizer 2.5 mL nebulized q.4 hours p.r.n. wheezing. 15. Lactulose 30 mL p.o. b.i.d. p.r.n. constipation. 16. Milk of magnesia 30 mL p.o. b.i.d. p.r.n. dyspepsia. 17. Metoprolol tartrate 50 mg p.o. q.12 hours. 18. Oxycodone/acetaminophen 5/325 one tab p.o. q.4 hours p.r.n. moderate to severe pain. 19. Polyethylene glycol 17 g p.o. daily p.r.n. constipation. 20. Temazepam 15 mg p.o. at q.h.s., p.r.n. insomnia. 21. Multivitamin 1 tab p.o. daily. PROCEDURES: 1. Left total knee replacement under general anesthesia with Dr. Rodriguez. 2. CALVIN-guided cardioversion by Dr. Lebron on 07/17/19, which was unsuccessful. COMPLICATIONS: No direct surgical complications, although the patient was admitted to the ICU with a ventricular tachycardia subsequent to the operation. CONSULTATIONS: Dr. Rodriguez of Orthopedics, Dr. Chatman of Cardiology. HOSPITAL COURSE: An 84-year-old man came to the hospital for elective left total knee replacement. The patient underwent surgery without immediate incident, but on 07/12/19, the patient developed a wide complex tachycardia, questionably ventricular tachycardia versus AFib with aberrancy. Cardiology consultation was obtained with Dr. Chatman. He was transferred to the intensive care unit and initially managed as AFib with a rate control and plan for cardioversion. Adenosine was attempted which did not unmask any particular rhythm. Echocardiogram on the 07/12/19 showed ejection fraction 55% to 60%, left atrial dilatation, pulmonic regurgitation, trace mitral regurgitation. Throughout the next few days, the patient remained relatively asymptomatic, but with wide complex tachycardias. It was ultimately determined that he was having V-tach and he was started on a amiodarone drip per protocol. The patient was transitioned to oral amiodarone on 07/17/19. He was also anticoagulated with Eliquis for DVT prophylaxis and thromboembolism prophylaxis from the AFib. He was managed initially on diltiazem drip and transitioned to oral diltiazem and metoprolol with consult with Cardiology. The patient had CALVIN cardioversion on 07/17/19, which briefly put him in sinus rhythm, but he quickly reverted to AFib. Decision was to continue amiodarone and other rate control agents and expect that he chemically cardiovert at some point down the road. The patient remained stable without chest pain or major palpitations. His breathing is somewhat labored. He did not have significant heart failure. Other important factors in the hospital stay: The patient had a hemoglobin of 9.7 on admission, which fell to 7.5 after surgery. He received 1 unit of packed red cells without incident. The patient also has chronic kidney disease with initial creatinine 1.37, which lee to as high as 2.08 with the initial illness and then resolution of the elevated creatinine. Then in the last 3 days of hospital stay, creatinine went back up to 2.28 and it fell to 2.07 on day of discharge. This was felt to be of poor perfusion of his kidneys due to his tachycardia and unstable rhythms. He did not have any nephrotoxic drugs other than possibly allopurinol. His uric acid was checked and found to be unnecessarily low at 5.4, so his allopurinol was cut from 300 to 100 mg per day. The patient had microbiology studies in the ICU including a MRSA screen, which was negative. Urine culture was negative. One blood culture grew Staph epidermidis, negative for Staph aureus, negative for MRSA. The patient did not require antibiotic treatments. DISPOSITION: To [facility] for acute rehab. On the day of discharge, the patient was able to ambulate a few feet with physical therapy. DIET: Should be low salt, low fat. ACTIVITIES: Weightbearing as tolerated. CONDITION: Good. STATUS: Inpatient. TIME SPENT: I spent more than 45 minutes with the patient and the family and completed necessary paperwork on the day of discharge. [id number]/CPS #: [id number] MTDD
== END 2019-07-20 10:43 | DRG 470 ==
LOC: AA 07-11 12:51 → SSU 07-11 18:01 → ICU 07-12 09:53 → MEDTELE 07-18 11:27
PROVIDERS: ADMIT Orthopaedic Surgery Adult Reconstructive Orthopaedic Surgery; ATTEND Internal Medicine
PROC: 0SRD0J9 Replacement of Left Knee Joint with Synthetic Substitute, Cemented, Open Approach (ICD-10-PCS; 2019-07-11)
PROC: 30233N1 Transfusion of Nonautologous Red Blood Cells into Peripheral Vein, Percutaneous Approach (ICD-10-PCS; principal; 2019-07-14)
PROC: 5A2204Z Restoration of Cardiac Rhythm, Single (ICD-10-PCS; 2019-07-17)
PROC: B24BZZ4 Ultrasonography of Heart with Aorta, Transesophageal (ICD-10-PCS; 2019-07-17)
DX: M17.12 Unilateral primary osteoarthritis, left knee (principal); I25.810 Atherosclerosis of coronary artery bypass graft(s) without angina pectoris; I47.1 Supraventricular tachycardia; I47.2 Ventricular tachycardia; I24.8 Other forms of acute ischemic heart disease; Z68.41 Body mass index [BMI] 40.0-44.9, adult; E78.00 Pure hypercholesterolemia, unspecified; K21.9 Gastro-esophageal reflux disease without esophagitis; I25.10 Atherosclerotic heart disease of native coronary artery without angina pectoris; Z96.612 Presence of left artificial shoulder joint; Z96.611 Presence of right artificial shoulder joint; Z96.641 Presence of right artificial hip joint; D69.6 Thrombocytopenia, unspecified; M25.462 Effusion, left knee; M10.9 Gout, unspecified; M25.762 Osteophyte, left knee; E78.5 Hyperlipidemia, unspecified; F41.9 Anxiety disorder, unspecified; M17.32 Unilateral post-traumatic osteoarthritis, left knee; R91.1 Solitary pulmonary nodule; I48.0 Paroxysmal atrial fibrillation; E66.8 Other obesity; R50.9 Fever, unspecified; F32.9 Major depressive disorder, single episode, unspecified; I27.20 Pulmonary hypertension, unspecified; I34.0 Nonrheumatic mitral (valve) insufficiency; I95.9 Hypotension, unspecified; D64.9 Anemia, unspecified; N18.2 Chronic kidney disease, stage 2 (mild); D72.829 Elevated white blood cell count, unspecified; E03.9 Hypothyroidism, unspecified; I37.1 Nonrheumatic pulmonary valve insufficiency; E83.42 Hypomagnesemia; I12.9 Hypertensive chronic kidney disease with stage 1 through stage 4 chronic kidney disease, or unspecified chronic kidney disease; Z95.1 Presence of aortocoronary bypass graft; Z85.828 Personal history of other malignant neoplasm of skin; Z87.891 Personal history of nicotine dependence; Z79.01 Long term (current) use of anticoagulants; Z79.899 Other long term (current) drug therapy
CPT/HCPCS: 36415; 36600; 71045; 71046; 76775; 80048; 80053; 81003; 81015; 82607; 82803; 83735; 84443; 84484; 84550; 85014; 85018; 85025; 85060; 86850; 86900; 86901; 86922; 87040; 87086; 87150; 87641; 88305; 88311; 92960; 93005; 93306; 93312; 93325; 94640; 94762; 99156; 99157; A9270-GY; C1776; C8929; G8978-GP-CL; G8978-GP-CM; G8979-GP-CI; J0153; J0282; J0690; J1170; J1940; J2250; J2270; J2310; J2405; J2704; J2795; J2920; J3010; J3475; J3490; P9040

== ENCOUNTER 2019-07-20 09:58 | Inpatient (IN) | payer MEDICARE ==
[2019-07-20] MEDS ORDERED: Magnesium Hydroxide LIQ* 30 ML UDC PO PRN (11:19)
[2019-07-20] MEDS ORDERED: Senna TAB 8.6 mg* TAB PO PRN (11:19)
[2019-07-20] MEDS: Acetaminophen TAB* 325 MG PO PRN (13:34)
[2019-07-20] MEDS: Atorvastatin* 40 MG TAB PO SCH (18:00)
--- NOTE | 2019-07-20 20:06 | HP ---
ADMISSION HISTORY AND PHYSICAL: DATE OF ADMISSION: 07/20/19 REASON FOR ADMISSION: Left total knee replacement; his postop course was notable for cardiac rhythm disturbances including atrial fibrillation. HISTORY OF PRESENT ILLNESS: Mitchell Traore is an 84-year-old male. He has a medical history significant for coronary artery disease and normally sees Dr. Lebron. He has had 2 bypasses and does have history of having had AFib in the past. The patient had difficulty with left knee pain. He saw Dr. Rodriguez and it was decided that he should have a left total knee replacement. Prior to surgery , he did go to his primary care provider for clearance as well as go in to see Dr. Lebron. The patient was admitted to [facility] on 07/11/19 and underwent a left total knee replacement that day. Postoperatively, he did go into a tachycardia. He had a cardiology consult with Dr. Chatman. The patient had an echocardiogram and his ejection fraction remained normal. The patient was eventually started on amiodarone to help control his rhythm. It was unclear after reviewing his rhythm strips with Cardiology whether he had runs of V-tach versus SVT or AFib with aberrancy. He did have a slight bump in his troponins, but that was felt to be demand ischemia secondary to the tachycardia. He definitely had runs of atrial fibrillation. He was put on metoprolol as well as he had been on Eliquis. He was put on a Cardizem drip overnight, but his blood pressures were soft, so that had to be discontinued. He was noted to be thrombocytopenic, although that appeared to be chronic in nature and appeared to have started in 2016. The patient had more runs of wide complex tachycardia and at that time he was started on an amiodarone drip. His Cardizem drip was restarted. By 07/17/19, the patient was able to resume therapy for his left total knee replacement. The patient did have an attempt at cardioversion, which did not obtain normal sinus rhythm. He transitioned to oral amiodarone and oral diltiazem. He was maintained on anticoagulation with Eliquis, renally dosed. His creatinine remained around 2. The bump in his BUN and creatinine was felt to possibly be due to poor renal perfusion. The patient otherwise was felt to be medically stable. Because of his long period of rest between his surgery and being able to resume PT, he was quite impaired. He is now being admitted for inpatient rehab so that he might return to independent living. PAST MEDICAL HISTORY: Significant for the aforementioned coronary artery disease. He has had 2 CABGs in the past. He has a history of hyperlipidemia, anxiety, cervical spine arthritis, and depression, as well as chronic thrombocytopenia. CURRENT MEDICATIONS: Include: 1. Amiodarone. 2. He is on Eliquis. 3. Lipitor. 4. Celexa. 5. Cardizem CD. 6. Flonase. 7. Lopressor. 8. Protonix. 9. Atrovent inhaler. ALLERGIES: No known drug allergies. SOCIAL HISTORY: He lives by himself in a 1-story house with 3 steps to enter. His son and daughter both live nearby. He was a nonsmoker and nondrinker. REVIEW OF SYSTEMS: The patient reports no current shortness of breath or chest pain. He is wearing oxygen via nasal cannula. PHYSICAL EXAMINATION VITAL SIGNS: The patient's temperature is 98.5, blood pressure is 130/65, pulse 70, respirations 20. HEENT: His extraocular movements were intact. Tongue is midline. NECK: Supple. LUNGS: Showed scattered wheezes. HEART: Sounds were irregular. S1 and S2 were audible. ABDOMEN: Soft and nontender. EXTREMITIES: His left knee had a wound, which is clean and dry. NEUROLOGIC: Sensation appeared to be intact. Muscle strength was 5/5 except the left lower extremity which was about 3/5 secondary to pain and stiffness. FUNCTIONAL EXAM: He transfers with min to moderate amount of assistance. ASSESSMENT: Left total knee replacement. Postop course notable for cardiac abnormalities including atrial fibrillation and possibly ventricular tachycardia. PLAN: Integrate him into a comprehensive and therapeutic rehab program. We will have the following goals: 1. Physical Therapy will work with the patient. They are going to work on functional transfer training, ambulation training with a walker. 2. Occupational Therapy will see the patient, work on his activities of daily living including toileting and toilet transfers. 3. For his atrial fibrillation, we are going to continue him Cardizem, metoprolol, amiodarone, and Eliquis. 4. Eliquis for DVT prophylaxis. 5. For chronic kidney disease, we will continue to monitor his BUN and creatinine. 6. Celexa for depression. 7. For his wheeze, right now we will continue the Atrovent nebulizer. We may need to add Xopenex for the patient. 8. His bowels will be regulated. 9. Adequate analgesia. 10. pharmacy services director will be closely involved to make sure that any services and equipment the patient requires are in place prior to discharge. 11. Family training as appropriate. 12. Home with appropriate services. ESTIMATED LENGTH OF STAY: 10 days. [id number]/CPS #: [id number] MICHAEL
[2019-07-20] MEDS: Ipratropium 0.5MG/2.5ML NEB* 0.5 MG/2.5 ML NEB.SOLN INH PRN (20:55)
[2019-07-20] MEDS: Levalbuterol 0.63MG/3ML NEB* UNIT OF USE INH PRN (20:55)
[2019-07-20] MEDS: Docusate CAP* 100 MG PO SCH (21:31)
[2019-07-20] MEDS: Metoprolol Tartrate TAB* 50 mg PO SCH (21:31)
[2019-07-20] MEDS: Amiodarone TAB* 400 MG PO SCH (21:31)
[2019-07-20] MEDS: Apixaban* 2.5 MG TAB PO SCH (21:31)
[2019-07-21 06:19] LABS: ABS Eosinophils 0.1 10^3/ul (0-0.6); ABS Lymphocytes 3.4 10^3/ul (1.0-4.8); ABS Monocytes 0.7 10^3/ul (0-0.8); ABS Neutrophils 5.3 10^3/ul (1.5-7.7); Eosinophil % 0.8 %; Hematocrit 26 % (42-52); Hemoglobin 8.8 g/dL (14.0-18.0); Lymphocyte % 35.5 %; Mean Corpuscular HGB Conc 34 g/dL (31-36); Mean Corpuscular Hemoglobin 36 pg (27-31); Mean Corpuscular Volume 104 fL (80-94); Mean Platelet Volume 8.9 fL (7.4-10.4); Platelet Count 148 10^3/uL (150-450); Red Blood Count 2.47 10^6 /uL (4.18-5.48); Red Cell Distribution Width 15 % (10-15); White Blood Count 9.5 10^3/uL (3.5-10.8)
[2019-07-21 06:40] LABS: Albumin 2.9 g/dL (3.2-5.2); Albumin/Globulin Ratio 1.5 (1-3); BUN/Creatinine Ratio 31.6 (8-20); Calcium 8.2 mg/dL (8.6-10.3); EGFR African American 46.4 (>60); EGFR Non-African American 38.3 (>60); Potassium 3.8 mmol/L (3.5-5.0); Total Bilirubin 1.1 mg/dL (0.2-1.0); Total Protein 4.9 g/dL (6.4-8.9)
[2019-07-21] MEDS: Apixaban* 2.5 MG TAB PO SCH ×2 (08:55→20:05)
[2019-07-21] MEDS: Amiodarone TAB* 400 MG PO SCH ×2 (08:55→20:05)
[2019-07-21] MEDS: Citalopram TAB* 20 MG PO SCH (08:55)
[2019-07-21] MEDS: Metoprolol Tartrate TAB* 50 mg PO SCH ×2 (08:55→20:08)
[2019-07-21] MEDS: Pantoprazole TAB * 40 MG TAB PO SCH (08:56)
[2019-07-21] MEDS: Docusate CAP* 100 MG PO SCH ×2 (08:56→20:06)
[2019-07-21] MEDS: Diltiazem CD CAP* 120 MG PO SCH (08:56)
[2019-07-21] MEDS: guaiFENesin 100 mg/5 ml LIQ unit dose cup PO PRN ×2 (08:57→20:06)
[2019-07-21] MEDS: Fluticasone NASAL SPRAY 50MCG* 16 gm SPRAY BTL BOTH NARES SCH (08:57)
[2019-07-21] MEDS: Ipratropium 0.5MG/2.5ML NEB* 0.5 MG/2.5 ML NEB.SOLN INH PRN (09:19)
[2019-07-21] MEDS: Levalbuterol 0.63MG/3ML NEB* UNIT OF USE INH PRN (09:19)
--- NOTE | 2019-07-21 12:04 | PN ---
Progress Note Date of Service: 07/21/19 Note: KD DANIEL was visited. Nursing and therapy notes read and reviewed. No chest pain. Some wheezing helped with nebs. No abdominal pain. Current Medications: Active Medications Generic Name Dose Route Start Last Admin Trade Name Freq PRN Reason Stop Dose Admin Acetaminophen 650 mg 07/20/19 11:19 07/20/19 13:34 Tylenol Tab* PO 650 mg Q6H PRN Administration MILD PAIN or TEMP > 100.4 Amiodarone HCl 400 mg 07/20/19 21:00 07/21/19 08:55 Cordarone Tab* PO 07/26/19 23:59 400 mg BID MARINA Administration Amiodarone HCl 200 mg 07/27/19 09:00 Cordarone Tab* PO DAILY MARINA Apixaban 2.5 mg 07/20/19 21:00 07/21/19 08:55 Eliquis* PO 2.5 mg BID MARINA Administration Atorvastatin Calcium 40 mg 07/20/19 17:00 07/20/19 18:00 Lipitor* PO 40 mg 1700 MARINA Administration Citalopram Hydrobromide 20 mg 07/21/19 09:00 07/21/19 08:55 Celexa Tab* PO 20 mg DAILY MARINA Administration Diltiazem HCl 120 mg 07/21/19 09:00 07/21/19 08:56 Cardizem Cd Cap* PO 120 mg DAILY MARINA Administration Docusate Sodium 100 mg 07/20/19 21:00 07/21/19 08:56 Colace Cap* PO Not Given BID MARINA Fluticasone Propionate 2 spray 07/21/19 09:00 07/21/19 08:57 Flonase Nasal [place] 50mcg* BOTH NARES 2 spray DAILY MARINA Administration Guaifenesin 5 ml 07/20/19 11:29 07/21/19 08:57 Robitussin 100 Mg/5ml Liq PO 5 ml Q6H PRN Administration COUGH Heparin Sodium (Porcine) 1 ml 07/20/19 22:30 07/21/19 06:17 Heparin Flush Picc/Ml/Cvc(*) FLUSH 1 ml 0600,1800 MARINA Administration Protocol Ipratropium [place] 0.5 mg 07/20/19 11:29 07/21/19 09:19 Atrovent 0.5 Mg Neb.Zaida* INH 0.5 mg Q4H PRN Administration SOB/WHEEZING Levalbuterol HCl 0.63 mg 07/20/19 19:02 07/21/19 09:19 Xopenex 0.63mg/3ml Neb* INH 0.63 mg Q4H PRN Administration SOB/WHEEZING Magnesium Hydroxide 30 ml 07/20/19 11:19 Milk Of Magnesia Liq* PO Q6H PRN CONSTIPATION Metoprolol Tartrate 50 mg 07/20/19 21:00 07/21/19 08:55 Lopressor Tab* PO 50 mg Q12HR MARINA Administration Pantoprazole Sodium 40 mg 07/21/19 09:00 07/21/19 08:56 Protonix Tab* PO 40 mg DAILY MARINA Administration Senna 2 tab 07/20/19 11:19 Senokot 8.6 Mg Tab* PO BEDTIME PRN CONSTIPATION Vital Signs: Vital Signs Temp Pulse Resp BP Pulse Ox 98.5 F 64 18 126/67 99 07/21/19 06:00 07/21/19 09:19 07/21/19 09:19 07/21/19 06:00 07/21/19 09:19 Lab Results: Laboratory Results - last 24 hr 07/21/19 07/21/19 06:10 06:10 WBC 9.5 RBC 2.47 L Hgb 8.8 L Hct 26 L MCV 104 H MCH 36 H MCHC 34 RDW 15 Plt Count 148 L MPV 8.9 Neut % (Auto) 56.3 Lymph % (Auto) 35.5 [place] % (Auto) 7.0 Eos % (Auto) 0.8 Baso % (Auto) 0.4 Absolute Neuts (auto) 5.3 Absolute Lymphs (auto) 3.4 Absolute Monos (auto) 0.7 Absolute Eos (auto) 0.1 Absolute Basos (auto) 0.0 Absolute Nucleated RBC 0.0 Nucleated RBC % 0.0 Sodium 139 Potassium 3.8 Chloride 106 Carbon Dioxide 29 Anion Gap 4 BUN 54 H Creatinine 1.71 H Est GFR ( Amer) 46.4 Est GFR (Non-Af Amer) 38.3 BUN/Creatinine Ratio 31.6 H Glucose 109 H Calcium 8.2 L Total Bilirubin 1.10 H AST 29 ALT 22 Alkaline Phosphatase 55 Total Protein 4.9 L Albumin 2.9 L Globulin 2.0 Albumin/Globulin Ratio 1.5 Exam: GENERAL: No acute distress. Alert and appropriate. LUNGS: Bilateral insp and exp wheezes. HEART: Irregularly irregular ABDOMEN: Soft, + bowel sounds, non-tender, non-distended EXTREMITIES: BLE edema as well as scrotal and penile edema. NEUROLOGIC: Sensation intact x4. Motor 5/5 BLE except 4/5 left knee ext and hip flexion. Assessment/Plan: 84yo man s/p left TKR complicated by atrial fibrillation/arrhythmia #Left TKR: f/u Dr. Rodriguez. PT/OT. Pain meds as needed. #Atrial fibrillation: cardizem, methoprolol, amiodarone, eliquis. #DVT ppx: eliquis #Chronic kidney disease: Cr improved. #Depression: celexa #Wheezing/Resp: on xopenex and atrovent prn. IS. Get updated CXR. Last CXR 07/19 with linear atelectasis and questionable consolidation. #Advanced directives: full code #Est LOS: IPOC today. 07/21/19 12:12
--- NOTE | 2019-07-21 12:53 | PMRUTEAM ---
PMRU: Team Meeting Current Status: Physical Therapy: Current Status Transfers: min assist (partial/moderate) with rolling walker Bed Mobility: partial/moderate Ambulation: 50ft partial/moderate with rolling walker stair: 1 step with walker partial/moderate. curb step x1 with rolling walker partial/moderate Occupational Therapy: Current Status Current Upper Body Dressing Setup or Clean-up Assist Status Current Lower Body Dressing Substantial/Maximal Status Current Footwear Status Dependent Current Bathing Status Substantial/Maximal Current Grooming Status Setup or Clean-up Assist Current Toileting Status Dependent Current Toilet Transfer Status Partial/Moderate Current Eating Status Independent Nursing: Current Status Skin Deviations [scrotum] Skin Tear Skin Deviations [Left Knee] Incision Skin Deviations [Right Lower Skin Tear Back] Skin Deviations [Left Buttocks Bruise ] Skin Deviations [Bilateral Arm Bruise ] Skin Deviation Description [ anterior scrotum] Skin Deviation Description [ intact with sutures. open to air Left Knee] Social Work: Current Status Discharge Plan return home with home care svs and family support Potential for Family Training TBD Anticipated Discharge Home Destination Discharge With Home care svs and family support Goals: Physical Therapy: Goals Independent bed mobility. Independent transfers with rolling walker. Independent curb. 3 stairs with set up. Ambulation Assistive Devices Rolling Walker Stairs Recommended Devices Straight Cane,One Rail Number of Stairs 3 Occupational Therapy: Goals Goals to be Completed in (Days 5-7 days ) Goal Upper Body Dressing Independent Routine Goal Lower Body Dressing Independent Routine Goal Footwear Status Independent Goal Bathing Routine (OT) Independent Goal Grooming Routine Independent Goal Toilet Hygiene and Independent Clothing Management Routine Goal Toilet Transfer Routine Independent Goal Functional Transfers for Independent ADL Goal Feeding Routine Independent Goal Light Housekeeping Tasks Independent Social Work: Goals Discharge Plan return home with home care svs and family support Potential for Family Training TBD Anticipated Discharge Home Destination Discharge With Home care svs and family support Care Plan: Care Plan Cardiovascular- Improve/Maintain Start: 07/20/19 22:36 Freq: DAILY@0700,1900 Status: Active Target: 07/27/19 Protocol: Activity Type Activity Date Activity User E-Sign Co-Sign Detail Recorded Client Recorded Date Recorded By Document 07/21/19 09:00 [id number] [id number] 07/21/19 10:34 [id number] 07/21/19 09:00 PMRU Outcome: Cardiovascular Vital Signs q Shift for 48hrs Then BID Yes Daily Weight Ordered No Current Cardiovascular Outcome/Goal Maintain/ Achieve Baseline HR, BP , Perfusion Improve HR Within Prescribed Parameters Maintain/ Improve Perfusion Free of Abnormal Cardiac Symptoms Progression Toward Outcome/Goal Progressing DVT Prophylaxis- Improve/Maintain Start: 07/20/19 22:36 Freq: DAILY@07,190 Status: Active Target: 07/27/19 Protocol: Activity Type Activity Date Activity User E-Sign Co-Sign Detail Recorded Client Recorded Date Recorded By Document 07/21/19 09:00 [id number] [email or web address] 07/21/19 10:34 [id number] 07/21/19 09:00 PMRU Outcome: DVT Prophylaxis Current DVT Outcome/Goals Remains Free of DVT Complies with DVT Prophylaxis /Treatment Demonstrates Knowledge of DVT Prevention/ Treatment Other DVT Other Outcome/Goals cesar wraps bilaterally Progression Toward Outcome/Goals Progressing Discharge Planning - Improve/Maintain Start: 07/20/19 22:36 Freq: [id number] Status: Active Target: 07/27/19 Protocol: Activity Type Activity Date Activity User E-Sign Co-Sign Detail Recorded Client Recorded Date Recorded By Document 07/21/19 09:00 [id number] [email or web address] 07/21/19 10:34 [id number] 07/21/19 09:00 PMRU Outcome: Discharge Planning Current Discharge Planning Outcome/Goals Demonstrates Understanding of Discharge Plan Homecare Referral - See Comment Progression Toward Outcome/Goals Progressing Education-Improve/Maintain Start: 07/20/19 22:36 Freq: DAILY@[id number] Status: Active Target: 07/27/19 Protocol: Activity Type Activity Date Activity User E-Sign Co-Sign Detail Recorded Client Recorded Date Recorded By Document 07/21/19 09:00 [id number] [email or web address] 07/21/19 10:34 [id number] 07/21/19 09:00 PMRU Outcome: Education Current Education Outcome/Goals Demonstrate/ Verbalize Understanding of Written Discharge Instructions Demonstrates Skills Encourage Questions Progression Toward Outcome/Goals Progressing /GI-Improve/Maintain Start: 07/20/19 22:36 Freq: DAILY@[id number] Status: Active Target: 07/27/19 Protocol: Activity Type Activity Date Activity User E-Sign Co-Sign Detail Recorded Client Recorded Date Recorded By Document 07/21/19 09:00 [id number] [email or web address] 07/21/19 10:34 [id number] 07/21/19 09:00 PMRU Outcome: Genitourinary/ Gastrointestinal Current Gastrointestinal Outcome/Goals Maintain/ Achieve Bowel Regularity in Accordance with Pt's Baseline Remain Free of Emesis Prevent Constipation Laxatives as Ordered Other GI Outcome/Goals patient declined colace this am Progression Toward Outcome/Goals Progressing Current Genitourinary Outcome/Goals Maintain/ Achieve Urinary Continence Maintain/ Achieve Adequate Urinary Output Remain Free of Hospital- Acquired UTI Progression Toward Outcome/Goals Progressing Medication Administration Start: 07/20/19 22:36 Freq: DAILY@0700,1900 Status: Active Target: 07/27/19 Protocol: Activity Type Activity Date Activity User E-Sign Co-Sign Detail Recorded Client Recorded Date Recorded By Document 07/21/19 09:00 [id number] [email or web address] 07/21/19 10:34 [id number] 07/21/19 09:00 PMRU Outcome: Medication Administration Assess Patient Knowledge/Teach Med Yes Education for all Meds 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 No Neurological- Improve/Maintain Start: 07/20/19 22:36 Freq: DAILY@[id number] Status: Active Target: 07/27/19 Protocol: Activity Type Activity Date Activity User E-Sign Co-Sign Detail Recorded Client Recorded Date Recorded By Document 07/21/19 09:00 [id number] [email or web address] 07/21/19 10:34 [id number] 07/21/19 09:00 PMRU Outcome: Neurological Weakness/Aphasia Weakness Weakness/Aphasia Comment generalized Current Neurological Outcome/Goals Maintain/ Achieve Baseline Neurological Status Improve Neurological Status Prevent Avoidable Neurological Decline Demonstrate Knowledge of Prevention/Tx of Neuro Disorders/ Complication Maintain/ Improve Strength/ROM Progression Toward Outcome/Goals Progressing Pain/Comfort- Improve/Maintain Start: 07/20/19 22:36 Freq: DAILY@[id number] Status: Active Target: 07/27/19 Protocol: Activity Type Activity Date Activity User E-Sign Co-Sign Detail Recorded Client Recorded Date Recorded By Document 07/21/19 09:00 [id number] [email or web address] 07/21/19 10:34 [id number] 07/21/19 09:00 PMRU Outcome: Pain/Comfort Current Pain/Comfort Outcome/Goals Demonstrates Knowledge and Use of Available Comfort Measures Achieves Acceptable Comfort/Pain Level as Determined by Patient/Condit Maintain Comfort Level Allowing Patient to Fully Participate in Rehab Other Pain/Comfort Outcome/Goals declines pain medications at this time Progression Toward Outcome/Goals Progressing Rec Therapy- Improve/Maintain Start: 07/20/19 15:53 Freq: DAILY@699,[id number] Status: Active Target: 07/27/19 Protocol: Activity Type Activity Date Activity User E-Sign Co-Sign Detail Recorded Client Recorded Date Recorded By Document 07/20/19 15:55 [id number] [email or web address] 07/20/19 15:55 [id number] 07/20/19 15:55 PMRU Outcome: Recreation Therapy Current Rec Ther Outcome/Goals Complete Rec Therapy Assessment Meet with Patient Regularly for Support Encourage Leisure Involvement Progression Toward Outcome/Goals Goal Initiation Respiratory - Improve/Maintain Start: 07/20/19 22:36 Freq: DAILY@[id number] Status: Active Target: 07/27/19 Protocol: Activity Type Activity Date Activity User E-Sign Co-Sign Detail Recorded Client Recorded Date Recorded By Document 07/21/19 09:00 [id number] [email or web address] 07/21/19 10:34 [id number] 07/21/19 09:00 PMRU Outcome: Respiratory Does Patient Have a Trach No Current Respiratory Outcome/Goals Maintain/ Improve Baseline Respiratory Status Maintain/ Improve Activity Tolerance Prevent Pneumonia/ Atelectasis Other Respiratory Outcome/Goals SOB on exertion . robitussin given.RT called for nebulizers Progression Toward Outcome/Goals Progressing Safety- Improve/Maintain Start: 07/20/19 11:05 Freq: DAILY@[id number] Status: Active Target: 07/27/19 Protocol: Activity Type Activity Date Activity User E-Sign Co-Sign Detail Recorded Client Recorded Date Recorded By Document 07/21/19 09:00 [id number] [email or web address] 07/21/19 10:34 [id number] 07/21/19 09:00 PMRU Outcome: Safety Current Safety Outcome/Goals Remain Free of Injury or Harm Cooperates with Safety Measures for Least Restrictive Environment Prevent Falls/ Injury Other Safety Outcome/Goals PA/BA Progression Toward Outcome/Goals Progressing - Interdisciplinary Staff Present Traffic Worker/Social Work Staff Present: MELIA Vail OT Staff Present: Karla Chavarria PT Staff Present: Niki Kathleen Medicine Note: Length of Stay: [1 week] Anticipated Discharge Destination: Home Tentative Discharge Date: [07/28/19] Discharged to: [home]
[2019-07-21] MEDS ORDERED: SPIRIVA Respimat* (tiotropium) 2.5 mcg/inh Inhaler INH SCH (15:00)
[2019-07-21] MEDS: Atorvastatin* 40 MG TAB PO SCH (17:36)
[2019-07-21] MEDS: SPIRIVA Respimat* (tiotropium) 2.5 mcg/inh Inhaler INH SCH (17:41)
[2019-07-21] MEDS: Acetaminophen TAB* 325 MG PO PRN (20:06)
[2019-07-22] MEDS: Fluticasone NASAL SPRAY 50MCG* 16 gm SPRAY BTL BOTH NARES SCH (07:59)
[2019-07-22] MEDS: SPIRIVA Respimat* (tiotropium) 2.5 mcg/inh Inhaler INH SCH (08:00)
[2019-07-22] MEDS: Acetaminophen TAB* 325 MG PO PRN ×2 (08:01→20:02)
[2019-07-22] MEDS: Docusate CAP* 100 MG PO SCH ×2 (08:02→20:07)
[2019-07-22] MEDS: Amiodarone TAB* 400 MG PO SCH ×2 (08:02→20:02)
[2019-07-22] MEDS: Diltiazem CD CAP* 120 MG PO SCH (08:02)
[2019-07-22] MEDS: Apixaban* 2.5 MG TAB PO SCH ×2 (08:02→20:01)
[2019-07-22] MEDS: Pantoprazole TAB * 40 MG TAB PO SCH (08:02)
[2019-07-22] MEDS: Citalopram TAB* 20 MG PO SCH (08:03)
[2019-07-22] MEDS: Metoprolol Tartrate TAB* 50 mg PO SCH ×2 (08:03→20:01)
--- NOTE | 2019-07-22 11:25 | PN ---
Progress Note Date of Service: 07/22/19 Note: KD DANIEL was visited. Nursing and therapy notes read and reviewed. No chest pain, shortness of breath or abdominal pain. Inhaler helps. Staff noted some memory issues and speech eval ordered. He reports pre-op work up for hypocalcemia and seeing Dr. Flowers. Current Medications: Active Medications Generic Name Dose Route Start Last Admin Trade Name Freq PRN Reason Stop Dose Admin Acetaminophen 650 mg 07/20/19 11:19 07/22/19 08:01 Tylenol Tab* PO 650 mg Q6H PRN Administration MILD PAIN or TEMP > 100.4 Amiodarone HCl 400 mg 07/20/19 21:00 07/22/19 08:02 Cordarone Tab* PO 07/26/19 23:59 400 mg BID MARINA Administration Amiodarone HCl 200 mg 07/27/19 09:00 Cordarone Tab* PO DAILY MARINA Apixaban 2.5 mg 07/20/19 21:00 07/22/19 08:02 Eliquis* PO 2.5 mg BID MARINA Administration Atorvastatin Calcium 40 mg 07/20/19 17:00 07/21/19 17:36 Lipitor* PO 40 mg 1700 MARINA Administration Citalopram Hydrobromide 20 mg 07/21/19 09:00 07/22/19 08:03 Celexa Tab* PO 20 mg DAILY MARINA Administration Diltiazem HCl 120 mg 07/21/19 09:00 07/22/19 08:02 Cardizem Cd Cap* PO 120 mg DAILY MARINA Administration Docusate Sodium 100 mg 07/20/19 21:00 07/22/19 08:02 Colace Cap* PO 100 mg BID MARINA Administration Fluticasone Propionate 2 spray 07/21/19 09:00 07/22/19 07:59 Flonase Nasal [place] 50mcg* BOTH NARES 2 spray DAILY MARINA Administration Guaifenesin 5 ml 07/20/19 11:29 07/21/19 20:06 Robitussin 100 Mg/5ml Liq PO 5 ml Q6H PRN Administration COUGH Heparin Sodium (Porcine) 1 ml 07/20/19 22:30 07/22/19 05:19 Heparin Flush Picc/Ml/Cvc(*) FLUSH 1 ml 0600,1800 MARINA Administration Protocol Ipratropium [place] 0.5 mg 07/20/19 11:29 07/21/19 09:19 Atrovent 0.5 Mg Neb.Zaida* INH 0.5 mg Q4H PRN Administration SOB/WHEEZING Levalbuterol HCl 0.63 mg 07/20/19 19:02 07/21/19 09:19 Xopenex 0.63mg/3ml Neb* INH 0.63 mg Q4H PRN Administration SOB/WHEEZING Magnesium Hydroxide 30 ml 07/20/19 11:19 Milk Of Magnesia Liq* PO Q6H PRN CONSTIPATION Metoprolol Tartrate 50 mg 07/20/19 21:00 07/22/19 08:03 Lopressor Tab* PO 50 mg Q12HR MARINA Administration Pantoprazole Sodium 40 mg 07/21/19 09:00 07/22/19 08:02 Protonix Tab* PO 40 mg DAILY MARINA Administration Senna 2 tab 07/20/19 11:19 Senokot 8.6 Mg Tab* PO BEDTIME PRN CONSTIPATION Tiotropium [place] 2 puff 07/21/19 18:00 07/22/19 08:00 Spiriva Respimat 2.5 Mcg INH 2 puff QAM MARINA Administration Vital Signs: Vital Signs Temp Pulse Resp BP Pulse Ox 98.6 F 64 20 110/57 96 07/22/19 05:14 07/22/19 05:14 07/22/19 08:00 07/22/19 05:14 07/22/19 08:00 Exam: GENERAL: No acute distress. Alert and appropriate. LUNGS: decreased wheezes compared to 07/21 HEART: Irregularly irregular ABDOMEN: Soft, + bowel sounds, non-tender, non-distended EXTREMITIES: BLE edema as well as scrotal and penile edema. NEUROLOGIC: Sensation intact x4. Motor 5/5 BLE except 4/5 left knee ext and hip flexion. Assessment/Plan: 84yo man s/p left TKR complicated by atrial fibrillation/arrhythmia #Left TKR: f/u Dr. Rodriguez. PT/OT. Pain meds as needed. #Atrial fibrillation: cardizem, methoprolol, amiodarone, eliquis. #DVT ppx: eliquis #Chronic kidney disease: Cr improved. #Depression: celexa #Wheezing/Resp: CXR 07/21 with hyperinflation despite no h/o copd/asthma. Started spiriva which seems to help. on xopenex and atrovent prn. IS. #Hyperbilirubinema: recheck on Wednesday. #Hypocalcemia and Throbocytopenia: was seen by Dr. Flowers, but notes not available. Platelets better. If acute issues retrieve notes or get consult. #Advanced directives: full code #Est LOS: 07/2807/22/19 11:27
[2019-07-22] MEDS: Atorvastatin* 40 MG TAB PO SCH (17:22)
[2019-07-23] MEDS: Amiodarone TAB* 400 MG PO SCH ×2 (08:48→20:09)
[2019-07-23] MEDS: Pantoprazole TAB * 40 MG TAB PO SCH (08:49)
[2019-07-23] MEDS: Acetaminophen TAB* 325 MG PO PRN ×2 (08:49→20:11)
[2019-07-23] MEDS: Citalopram TAB* 20 MG PO SCH (08:49)
[2019-07-23] MEDS: Apixaban* 2.5 MG TAB PO SCH ×2 (08:49→20:09)
[2019-07-23] MEDS: Diltiazem CD CAP* 120 MG PO SCH (08:49)
[2019-07-23] MEDS: Metoprolol Tartrate TAB* 50 mg PO SCH ×2 (08:49→20:09)
[2019-07-23] MEDS: Fluticasone NASAL SPRAY 50MCG* 16 gm SPRAY BTL BOTH NARES SCH (08:52)
[2019-07-23] MEDS: SPIRIVA Respimat* (tiotropium) 2.5 mcg/inh Inhaler INH SCH ×2 (08:53→18:30)
[2019-07-23] MEDS: Docusate CAP* 100 MG PO SCH ×2 (08:53→20:01)
--- NOTE | 2019-07-23 11:18 | PN ---
Progress Note Date of Service: 07/23/19 Note: KD Elizondo FREDY CALIXTO was visited. Nursing and therapy notes read and reviewed. No chest pain, shortness of breath or abdominal pain. Current Medications: Active Medications Generic Name Dose Route Start Last Admin Trade Name Freq PRN Reason Stop Dose Admin Acetaminophen 650 mg 07/20/19 11:19 07/23/19 08:49 Tylenol Tab* PO 650 mg Q6H PRN Administration MILD PAIN or TEMP > 100.4 Amiodarone HCl 400 mg 07/20/19 21:00 07/23/19 08:48 Cordarone Tab* PO 07/26/19 23:59 400 mg BID MARINA Administration Amiodarone HCl 200 mg 07/27/19 09:00 Cordarone Tab* PO DAILY MARINA Apixaban 2.5 mg 07/20/19 21:00 07/23/19 08:49 Eliquis* PO 2.5 mg BID MARINA Administration Atorvastatin Calcium 40 mg 07/20/19 17:00 07/22/19 17:22 Lipitor* PO 40 mg 1700 MARINA Administration Citalopram Hydrobromide 20 mg 07/21/19 09:00 07/23/19 08:49 Celexa Tab* PO 20 mg DAILY MARINA Administration Diltiazem HCl 120 mg 07/21/19 09:00 07/23/19 08:49 Cardizem Cd Cap* PO 120 mg DAILY MARINA Administration Docusate Sodium 100 mg 07/20/19 21:00 07/23/19 08:53 Colace Cap* PO Not Given BID MARINA Fluticasone Propionate 2 spray 07/21/19 09:00 07/23/19 08:52 Flonase Nasal [place] 50mcg* BOTH NARES 2 spray DAILY MARINA Administration Guaifenesin 5 ml 07/20/19 11:29 07/21/19 20:06 Robitussin 100 Mg/5ml Liq PO 5 ml Q6H PRN Administration COUGH Heparin Sodium (Porcine) 1 ml 07/20/19 22:30 07/23/19 05:46 Heparin Flush Picc/Ml/Cvc(*) FLUSH 1 ml 0600,1800 MARINA Administration Protocol Ipratropium [place] 0.5 mg 07/20/19 11:29 07/21/19 09:19 Atrovent 0.5 Mg Neb.Zaida* INH 0.5 mg Q4H PRN Administration SOB/WHEEZING Levalbuterol HCl 0.63 mg 07/20/19 19:02 07/21/19 09:19 Xopenex 0.63mg/3ml Neb* INH 0.63 mg Q4H PRN Administration SOB/WHEEZING Magnesium Hydroxide 30 ml 07/20/19 11:19 Milk Of Magnesia Liq* PO Q6H PRN CONSTIPATION Metoprolol Tartrate 50 mg 07/20/19 21:00 07/23/19 08:49 Lopressor Tab* PO 50 mg Q12HR MARINA Administration Pantoprazole Sodium 40 mg 07/21/19 09:00 07/23/19 08:49 Protonix Tab* PO 40 mg DAILY MARINA Administration Senna 2 tab 07/20/19 11:19 Senokot 8.6 Mg Tab* PO BEDTIME PRN CONSTIPATION Tiotropium [place] 2 puff 07/21/19 18:00 07/23/19 08:53 Spiriva Respimat 2.5 Mcg INH Not Given QAM [facility] Vital Signs: Vital Signs Temp Pulse Resp BP Pulse Ox 98.2 F 63 18 115/64 96 07/23/19 05:27 07/23/19 05:27 07/23/19 05:27 07/23/19 05:27 07/23/19 07:36 Exam: GENERAL: No acute distress. Alert and appropriate. LUNGS: few expiratory wheezes (did not use spriva this morning). HEART: Irregularly irregular ABDOMEN: Soft, + bowel sounds, non-tender, non-distended EXTREMITIES: BLE edema as well as scrotal and penile edema. NEUROLOGIC: Sensation intact x4. Motor 5/5 BLE except 4/5 left knee ext and hip flexion. PROCEDURE: Left knee sutures removed and steristrips placed. No complications. Assessment/Plan: 84yo man s/p left TKR complicated by atrial fibrillation/arrhythmia #Left TKR: f/u Dr. Rodriguez. PT/OT. Pain meds as needed. Sutures removed 07/23. #Atrial fibrillation: cardizem, metoprolol, amiodarone, eliquis. #DVT ppx: eliquis #Chronic kidney disease: Cr improved. #Depression: celexa #Wheezing/Resp: CXR 07/21 with hyperinflation despite no h/o copd/asthma. Started spiriva which seemed to help. on xopenex and atrovent prn. IS. #Hyperbilirubinema: recheck on Wednesday. #Hypocalcemia and Throbocytopenia: was seen by Dr. Lionel cuevas, but notes not available. Platelets better. If acute issues retrieve notes or get consult. #Impaired cognition: Speech notes mild memory deficit and plans to do 2 co- treatments with PT/OT. #Advanced directives: full code #Est LOS: 07/2807/23/19 11:16
[2019-07-23] MEDS: Atorvastatin* 40 MG TAB PO SCH (17:17)
[2019-07-24 05:46] LABS: Albumin 2.8 g/dL (3.2-5.2); Albumin/Globulin Ratio 1.4 (1-3); BUN/Creatinine Ratio 20.9 (8-20); Calcium 8.1 mg/dL (8.6-10.3); EGFR Non-African American 40.5 (>60); Potassium 4.7 mmol/L (3.5-5.0); Total Protein 4.8 g/dL (6.4-8.9)
[2019-07-24] MEDS: SPIRIVA Respimat* (tiotropium) 2.5 mcg/inh Inhaler INH SCH ×2 (09:41→09:42)
[2019-07-24] MEDS: Apixaban* 2.5 MG TAB PO SCH ×2 (10:11→20:10)
[2019-07-24] MEDS: Pantoprazole TAB * 40 MG TAB PO SCH (10:12)
[2019-07-24] MEDS: Metoprolol Tartrate TAB* 50 mg PO SCH ×2 (10:12→20:11)
[2019-07-24] MEDS: Citalopram TAB* 20 MG PO SCH (10:12)
[2019-07-24] MEDS: Fluticasone NASAL SPRAY 50MCG* 16 gm SPRAY BTL BOTH NARES SCH (10:12)
[2019-07-24] MEDS: Amiodarone TAB* 400 MG PO SCH ×2 (10:12→20:10)
[2019-07-24] MEDS: Diltiazem CD CAP* 120 MG PO SCH (10:12)
[2019-07-24] MEDS: Docusate CAP* 100 MG PO SCH ×2 (10:24→20:10)
[2019-07-24] MEDS: Atorvastatin* 40 MG TAB PO SCH (17:26)
--- NOTE | 2019-07-24 18:47 | PN ---
Progress Note Date of Service: 07/24/19 Note: KD DANIEL JR was visited. Therapy notes read and reviewed. He had an episode of tachycardia. EKG ordered but episode resolved before EKG done. Current Medications: Active Medications Generic Name Dose Route Start Last Admin Trade Name Freq PRN Reason Stop Dose Admin Acetaminophen 650 mg 07/20/19 11:19 07/23/19 20:11 Tylenol Tab* PO 650 mg Q6H PRN Administration MILD PAIN or TEMP > 100.4 Amiodarone HCl 400 mg 07/20/19 21:00 07/24/19 10:12 Cordarone Tab* PO 07/26/19 23:59 400 mg BID MARINA Administration Amiodarone HCl 200 mg 07/27/19 09:00 Cordarone Tab* PO DAILY MARINA Apixaban 2.5 mg 07/20/19 21:00 07/24/19 10:11 Eliquis* PO 2.5 mg BID MARINA Administration Atorvastatin Calcium 40 mg 07/20/19 17:00 07/24/19 17:26 Lipitor* PO 40 mg 1700 MARINA Administration Citalopram Hydrobromide 20 mg 07/21/19 09:00 07/24/19 10:12 Celexa Tab* PO 20 mg DAILY MARINA Administration Diltiazem HCl 120 mg 07/21/19 09:00 07/24/19 10:12 Cardizem Cd Cap* PO 120 mg DAILY MARINA Administration Docusate Sodium 100 mg 07/20/19 21:00 07/24/19 10:24 Colace Cap* PO Not Given BID MARINA Fluticasone Propionate 2 spray 07/21/19 09:00 07/24/19 10:12 Flonase Nasal [place] 50mcg* BOTH NARES 2 spray DAILY MARINA Administration Guaifenesin 5 ml 07/20/19 11:29 07/21/19 20:06 Robitussin 100 Mg/5ml Liq PO 5 ml Q6H PRN Administration COUGH Heparin Sodium (Porcine) 1 ml 07/20/19 22:30 07/24/19 18:37 Heparin Flush Picc/Ml/Cvc(*) FLUSH 1 ml 0600,1800 MARINA Administration Protocol Ipratropium [place] 0.5 mg 07/20/19 11:29 07/21/19 09:19 Atrovent 0.5 Mg Neb.Zaida* INH 0.5 mg Q4H PRN Administration SOB/WHEEZING Levalbuterol HCl 0.63 mg 07/20/19 19:02 07/21/19 09:19 Xopenex 0.63mg/3ml Neb* INH 0.63 mg Q4H PRN Administration SOB/WHEEZING Magnesium Hydroxide 30 ml 07/20/19 11:19 Milk Of Magnesia Liq* PO Q6H PRN CONSTIPATION Metoprolol Tartrate 50 mg 07/20/19 21:00 07/24/19 10:12 Lopressor Tab* PO 50 mg Q12HR MARINA Administration Pantoprazole Sodium 40 mg 07/21/19 09:00 07/24/19 10:12 Protonix Tab* PO 40 mg DAILY MARINA Administration Senna 2 tab 07/20/19 11:19 Senokot 8.6 Mg Tab* PO BEDTIME PRN CONSTIPATION Tiotropium [place] 2 puff 07/21/19 18:00 12 09:42 Spiriva Respimat 2.5 Mcg INH Not Given QAM [facility] Vital Signs: Vital Signs Temp Pulse Resp BP Pulse Ox 98.7 F 65 18 109/49 95 07/24/19 15:02 07/24/19 15:02 07/24/19 15:02 07/24/19 15:02 07/24/19 15:02 Lab Results: Laboratory Results - last 24 hr 07/24/19 05:19 Sodium 143 Potassium 4.7 Chloride 108 Carbon Dioxide 30 Anion Gap 5 BUN 34 H Creatinine 1.63 H Est GFR ( Amer) 49.0 Est GFR (Non-Af Amer) 40.5 BUN/Creatinine Ratio 20.9 H Glucose 109 H Calcium 8.1 L Total Bilirubin 1.00 AST 22 ALT 18 Alkaline Phosphatase 50 Total Protein 4.8 L Albumin 2.8 L Globulin 2.0 Albumin/Globulin Ratio 1.4 Exam: GENERAL: No acute distress. Alert and appropriate. LUNGS: few expiratory wheezes. HEART: Irregularly irregular ABDOMEN: Soft, + bowel sounds, non-tender, non-distended EXTREMITIES: BLE edema as well as scrotal and penile edema. NEUROLOGIC: Sensation intact x4. Motor 5/5 BLE except 4/5 left knee ext and hip flexion. Assessment/Plan: 84yo man s/p left TKR complicated by atrial fibrillation/arrhythmia 1. Left TKR: f/u Dr. Rodriguez. PT/OT. Pain meds as needed. Sutures removed 07/23. 2. Atrial fibrillation: cardizem, metoprolol, amiodarone, eliquis. 3. DVT prophylaxis: eliquis 4. Chronic kidney disease: Cr improved. 5. Depression: celexa 6. Wheezing/Resp: CXR 07/21 with hyperinflation despite no h/o copd/asthma. Started spiriva which seemed to help. on xopenex and atrovent prn. IS. 7. Hyperbilirubinema: normalized. 8. Hypocalcemia and Throbocytopenia: was seen by Dr. Flowers preop, but notes not available. Platelets better. 9. Impaired cognition: Speech notes mild memory deficit and plans to do 2 co- treatments with PT/OT. 10. Advanced directives: full code 11. Edema: Start Lasix; normally takes HCTZ at home 12. Est LOS: 07/2807/24/19 18:48 07/24/19 18:49 07/24/19 18:52
[2019-07-24] MEDS: Acetaminophen TAB* 325 MG PO PRN (19:10)
[2019-07-25] MEDS: Metoprolol Tartrate TAB* 50 mg PO SCH ×2 (08:56→21:07)
[2019-07-25] MEDS: Citalopram TAB* 20 MG PO SCH (08:56)
[2019-07-25] MEDS: Diltiazem CD CAP* 120 MG PO SCH (08:56)
[2019-07-25] MEDS: Furosemide TAB* 20 MG PO SCH (08:56)
[2019-07-25] MEDS: Pantoprazole TAB * 40 MG TAB PO SCH (08:56)
[2019-07-25] MEDS: Amiodarone TAB* 400 MG PO SCH ×2 (08:56→21:06)
[2019-07-25] MEDS: Apixaban* 2.5 MG TAB PO SCH ×2 (08:56→21:06)
[2019-07-25] MEDS: guaiFENesin 100 mg/5 ml LIQ unit dose cup PO PRN (08:57)
[2019-07-25] MEDS: Docusate CAP* 100 MG PO SCH ×2 (08:57→21:06)
[2019-07-25] MEDS: Fluticasone NASAL SPRAY 50MCG* 16 gm SPRAY BTL BOTH NARES SCH (08:57)
[2019-07-25] MEDS: SPIRIVA Respimat* (tiotropium) 2.5 mcg/inh Inhaler INH SCH (08:58)
--- NOTE | 2019-07-25 12:55 | PMRUTEAM ---
PMRU: Team Meeting Current Status: Physical Therapy: Current Status Current Rolling Status Supervision/Touching Current Supine <-> Sit Status Partial/Moderate Current Sit <-> Stand Status Supervision/Touching Current Bed <-> Chair Status Supervision/Touching Transfer/Bed Mobility Rolling Walker Recommended Devices Current Picking Up Object Partial/Moderate Status Current Car Transfer Status Partial/Moderate Current Ambulation Assistance Supervision/Touching Status Ambulation Assistive Device Rolling Walker Ambulation Conditions Two or More Turns,Uneven Surfaces Current Ambulation Distance 1x50', 1x25' Current Wheelchair Propulsion Not Applicable Ability Status Current Stair Climbing Status Supervision/Touching Stair Climbing Assistive Left Railing,Right Railing Devices Number of Stairs Climbed 4 Current Curb Assistance Status Partial/Moderate Curb Assistive Devices Rolling Walker Objective Comments L knee flexion: 76 degrees, L knee extension: -2 degrees Occupational Therapy: Current Status Current Upper Body Dressing Setup or Clean-up Assist Status Current Lower Body Dressing Substantial/Maximal Status Current Footwear Status Dependent Current Bathing Status Partial/Moderate Current Grooming Status Setup or Clean-up Assist Current Toileting Status Supervision/Touching Current Toilet Transfer Status Supervision/Touching Current Eating Status Independent Nursing: Current Status Skin Deviations [scrotum] Skin Tear Skin Deviations [Left Knee] Incision Skin Deviations [Right Lower Rash Back] Skin Deviations [Left Buttocks Bruise ] Skin Deviations [Bilateral Arm Bruise ] Skin Deviation Description [ significant edema scrotum] skin tear reported, not visualized by this senior medical writer Skin Deviation Description [ 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 is Clinical Impression aware of services. Pt. presents as very tired in the afternoons but is open to visits if he is awake. Treatment Goals Pt. will engage in leisure activities while on the unit. Treatment Plan Provide recreation therapy services and encourage involvement. Social Work: Current Status Discharge Plan return home with home care svs and family support Potential for Family Training pt's family are involved and supportive and plan to participate in d/c training later this week Anticipated Discharge Home Destination Discharge With home care svs and family support Nutrition: Current Status Monitoring Pt is a 84 yo M s/p L TKR w/afib and RVR. Maintained on heart healthy diet consuming avg 66% at meals x past 2 days. Pt denies need for additional food/snacks; just c/o wanting food items contra-indicated on heart healthy diet, such as bologna. Pt/family admits to often not filling out menus contributing to not getting preferred foods. No GI c/o, such as n/v/c/d/abd pain noted. Last BM 07/25. Skin intact. Labs/meds rev'd: electrolytes wnl. No further nutrition intervention indicated at present. Will remain available as needed. Speech: Current Status Assessment Progressing as expected. BED LABORER provided concurrent treatment with physical therapy to observe patient 's learning and provide cognitive-communication strategies, while PT addressed safe transfers and walking with a walker. BED LABORER will provide concurrent treatment with occupatonal therapy to observe patient's learning and provide cognitive- communication strategies, then discharhe ST if indicated. Goals: Physical Therapy: Goals Goals to Be Accomplished in ( 5-7 Days) Goal: Rolling Assistance Independent Goal Supine <-> Sit Status Independent Goal Sit <-> Stand Status Independent Goal Bed <-> Chair Status Independent Transfer/Bed Mobility Rolling Walker Recommended Devices Goal: Picking Up Object Independent Goal: Car Transfer Status Setup or Clean-up Assist Goal: Ambulation Assistance Independent Ambulation Assistive Devices Rolling Walker Ambulation Distance (ft) 75 Goal: Wheelchair Propulsion Not Applicable Ability Goal: Stairs Assistance Setup or Clean-up Assist Stairs Recommended Devices Two Rails Number of Stairs 4 Goal: Curb Assistance Supervision/Touching Goal: Home Exercise Program Independent Assistance Occupational Therapy: Goals Goals to be Completed in (Days 5-7 days ) Goal Upper Body Dressing Independent Routine Goal Lower Body Dressing Independent Routine Goal Footwear Status Independent Goal Bathing Routine (OT) Independent Goal Grooming Routine Independent Goal Toilet Hygiene and Independent Clothing Management Routine Goal Toilet Transfer Routine Independent Goal Functional Transfers for Independent ADL Goal Feeding Routine Independent Goal Light Housekeeping Tasks Independent Nutrition: Goals Intervention Goals 1. adequate intake to support hydration and lean body mass without significant wt change 2. maintain serum electrolytes WNL 3. regulation of bowel pattern; no c/o constipation (or diarrhea) Speech: Goals Speech Goal 1 Problem Solving Goal 1 Comments Problem Solving, Long-Term Goal: Pt will use compensatory strategies to solve moderately complex routine problems, for transfer and mobility safety, adaptive dressing; with 100% accuracy, given Minimal cueing. Status: Goal established Problem Solving, Short-Term Goal: Pt will use compensatory strategies to solve simple routine problems, for transfer and mobility safety, adaptive dressing; with 90% accuracy, given skilled instruction, Moderate cueing, and extra time. Status: Goal established. Plan: BED LABORER will co-treat with OT and PT 1x each to provide education and compensatory strategies for hearing, memory, direction following, and problem solving. Patient is not appropriate for 1:1 individual speech therapy for IADLs such as medication and money management. 07/24/19: Progressing as expected. BED LABORER provided concurrent treatment with physical therapy to observe patient's learning and provide cognitive- communication strategies, while PT addressed safe transfers and walking with a walker. BED LABORER will provide concurrent treatment with occupatonal therapy to observe patient's learning and provide cognitive-communication strategies, then discharge ST if indicated. During concurrent therapy with PT on 07/24/19, patient was observed to hear and respond accurately to 98% of nursing and therapists speech , instructions and directions. Given verbal instruction and rationale by OH, patient I'ly performed 3-4 step sequences to stand t walker and to sit from walker. Patient had not been able to verbalize and had objetced to previous instuction by BED LABORER using printed text and pictures. Patient learned best through practical instruction. Social Work: Goals Discharge Plan return home with home care svs and family support Potential for Family Training pt's family are involved and supportive and plan to participate in d/c training later this week Anticipated Discharge Home Destination Discharge With home care svs and family support Nursing: Goals Bladder Goal independent Bowel Goal independent Nutrition Goal 100% meal eaten Medication Goal continue to take medication as prescribed Care Plan: Care Plan ADL's - Improve/Maintain Start: 07/20/19 22:36 Freq: DAILY@0700,1900 Status: Active Target: 07/28/19 Protocol: Activity Type Activity Date Activity User E-Sign Co-Sign Detail Recorded Client Recorded Date Recorded By Document 07/24/19 12: [id number] 07/24/19 12: [id number] 07/24/19 12:09 PMRU Outcome: ADL's/ADL Transfers Orders/Interventions Occupational Therapy Evaluation & Treatment Device Yes Address Deficits Secondary To: L TKA Patient to receive OT 5x/wk for 60-120 Therex min/day Self Care Management Group Therapy Neuromuscular ReEducation UE/LE ADL's with Assist Yes: independent ADL Transfers with Assist Yes: independent Toileting: Transfers,Clothing Management Yes: ,Hygeine w/Assist independent Light Kitchen/Laundry w/Assist Yes: modA Other Outcome/Goals Pt tolerates therapy well. He requires increased rest breaks 2* fatigue and significant SOB . Pts vitals WFL. Progression Toward Outcome/Goals Progressing Cardiovascular- Improve/Maintain Start: 07/20/19 22:36 Freq: DAILY@0700,1900 Status: Active Target: 07/28/19 Protocol: Activity Type Activity Date Activity User E-Sign Co-Sign Detail Recorded Client Recorded Date Recorded By Document 07/25/19 00:34 [id number] 07/25/19 00:35 [id number] 07/25/19 00:34 PMRU Outcome: Cardiovascular Vital Signs q Shift for 48hrs Then BID Yes Daily Weight Ordered No Current Cardiovascular Outcome/Goal Maintain/ Achieve Baseline HR, BP , Perfusion Improve HR Within Prescribed Parameters Maintain/ Improve Perfusion Free of Abnormal Cardiac Symptoms Progression Toward Outcome/Goal Progressing Communication-Improve/Maintain Start: 07/22/19 14:02 Freq: DAILY@0700,1900 Status: Active Target: 07/28/19 Protocol: Activity Type Activity Date Activity User E-Sign Co-Sign Detail Recorded Client Recorded Date Recorded By Document 07/25/19 00:34 [id number] 07/25/19 00:35 [id number] 07/25/19 00:34 PMRU Outcome: Communication/Cognitive Status Current Communication Outcome/Goals Other Other Communication Outcomes/Goals Problem Solving , Long-Term: Long-Term Goal: Pt will use compensatory strategies to solve moderately complex routine problems, for transfer and mobility safety , adaptive dressing; with 100% accuracy, given Minimal cueing. Status: Goal established Problem Solving , Short-Term: Pt will use compensatory strategies to solve simple routine problems, for transfer and mobility safety , adaptive dressing; with 90% accuracy, given skilled instruction, Moderate cueing , and extra time. Status: Goal established. Progression Toward Outcomes/Goals Progressing Outcome/Goals Met Other Outcome/Goals Met Comment Progressing as expected. BED LABORER provided concurrent treatment with physical therapy to observe patient 's learning and provide cognitive- communication strategies, while PT addressed safe transfers and walking with a walker. BED LABORER will provide concurrent treatment with occupatonal therapy to observe patient 's learning and provide cognitive- communication strategies, then discharhe ST if indicated . DVT Prophylaxis- Improve/Maintain Start: 07/20/19 22:36 Freq: DAILY@699,[id number] Status: Active Target: 07/28/19 Protocol: Activity Type Activity Date Activity User E-Sign Co-Sign Detail Recorded Client Recorded Date Recorded By Document 07/25/19 00:34 [id number] 07/25/19 00:35 [id number] 07/25/19 00:34 PMRU Outcome: DVT Prophylaxis Current DVT Outcome/Goals Remains Free of DVT Complies with DVT Prophylaxis /Treatment Demonstrates Knowledge of DVT Prevention/ Treatment Progression Toward Outcome/Goals Progressing Discharge Planning - Improve/Maintain Start: 07/20/19 22:36 Freq: DAILY@ Status: Active Target: 07/28/19 Protocol: Activity Type Activity Date Activity User E-Sign Co-Sign Detail Recorded Client Recorded Date Recorded By Document 07/25/19 00:34 [id number] [id number] 07/25/19 00:35 [id number] 07/25/19 00:34 PMRU Outcome: Discharge Planning Update Patient Family No Current Discharge Planning Outcome/Goals Demonstrates Understanding of Discharge Plan Homecare Referral - See Comment Progression Toward Outcome/Goals Progressing Education-Improve/Maintain Start: 07/20/19 22:36 Freq: DAILY@ Status: Active Target: 07/28/19 Protocol: Activity Type Activity Date Activity User E-Sign Co-Sign Detail Recorded Client Recorded Date Recorded By Document 07/25/19 00:34 [id number] [id number] 07/25/19 00:35 [id number] 07/25/19 00:34 PMRU Outcome: Education Current Education Outcome/Goals Demonstrate/ Verbalize Understanding of Written Discharge Instructions Demonstrates Skills Encourage Questions Progression Toward Outcome/Goals Progressing /GI-Improve/Maintain Start: 07/20/19 22:36 Freq: DAILY@ Status: Active Target: 07/28/19 Protocol: Activity Type Activity Date Activity User E-Sign Co-Sign Detail Recorded Client Recorded Date Recorded By Document 07/25/19 00:34 [id number] [id number] 07/25/19 00:35 [id number] 07/25/19 00:34 PMRU Outcome: Genitourinary/ Gastrointestinal Current Gastrointestinal Outcome/Goals Maintain/ Achieve Bowel Regularity in Accordance with Pt's Baseline Remain Free of Emesis Prevent Constipation Laxatives as Ordered Progression Toward Outcome/Goals Progressing Current Genitourinary Outcome/Goals Maintain/ Achieve Urinary Continence Maintain/ Achieve Adequate Urinary Output Remain Free of Hospital- Acquired UTI Progression Toward Outcome/Goals Progressing Medication Administration Start: 07/20/19 22:36 Freq: DAILY@0700,1900 Status: Active Target: 07/28/19 Protocol: Activity Type Activity Date Activity User E-Sign Co-Sign Detail Recorded Client Recorded Date Recorded By Document 07/25/19 00:34 [id number] 07/25/19 00:35 [id number] 07/25/19 00:34 PMRU Outcome: Medication Administration Assess Patient Knowledge/Teach Med Yes Education for all Meds Current Money Room Supervisor Outcome/Goals Patient Independent with Medication Administration at Home Demonstrates Understanding Progression Towards Outcome/Goals Progressing Is Patient Going Home on Lovenox? No Mobility- Improve/Maintain Start: 07/20/19 22:36 Freq: DAILY@699,1899 Status: Active Target: 07/28/19 Protocol: Activity Type Activity Date Activity User E-Sign Co-Sign Detail Recorded Client Recorded Date Recorded By Document 07/24/19 16:12 [id number] 07/24/19 16:12 [id number] 07/24/19 16:12 PMRU Outcome: Mobility Physical Therapy Evaluation and Yes Treatment Activity OOB with Assistance Yes WBAT Yes NWB No TTWB No Device Yes Assistance Yes Patient to be seen 5x/wk for 60-120 min/ Therex day for: Mobility Training Gait Training Balance Other Other Therapy Comment Discharge training, discharge planning Current Mobility Outcome/Goals Improve Mobility Status Demonstrates Proper Use of Assistive Devices Progression Toward Outcome/Goals Goal Initiation Bed Mobility Yes: Independent Transfers Yes: Independent with RW Gait x ft Yes: 150' Independent with RW W/C Mobility x ft No Up/Down Stairs Yes: Set-up, 4 steps with 1 rail With HEP Yes: Independent Neurological- Improve/Maintain Start: 07/20/19 22:36 Freq: DAILY@0700,1900 Status: Active Target: 07/28/19 Protocol: Activity Type Activity Date Activity User E-Sign Co-Sign Detail Recorded Client Recorded Date Recorded By Document 07/25/19 00:34 [id number] 07/25/19 00:35 [id number] 07/25/19 00:34 PMRU Outcome: Neurological Weakness/Aphasia Weakness Weakness/Aphasia Comment generalized Current Neurological Outcome/Goals Maintain/ Achieve Baseline Neurological Status Improve Neurological Status Prevent Avoidable Neurological Decline Demonstrate Knowledge of Prevention/Tx of Neuro Disorders/ Complication Maintain/ Improve Strength/ROM Progression Toward Outcome/Goals Progressing Pain/Comfort- Improve/Maintain Start: 07/20/19 22:36 Freq: DAILY@0700,1900 Status: Active Target: 07/28/19 Protocol: Activity Type Activity Date Activity User E-Sign Co-Sign Detail Recorded Client Recorded Date Recorded By Document 07/25/19 00:34 [id number] 07/25/19 00:35 [id number] 07/25/19 00:34 PMRU Outcome: Pain/Comfort Current Pain/Comfort Outcome/Goals Demonstrates Knowledge and Use of Available Comfort Measures Achieves Acceptable Comfort/Pain Level as Determined by Patient/Condit Maintain Comfort Level Allowing Patient to Fully Participate in Rehab Progression Toward Outcome/Goals Progressing Rec Therapy- Improve/Maintain Start: 07/20/19 15:53 Freq: DAILY@0700,1900 Status: Active Target: 07/27/19 Protocol: Activity Type Activity Date Activity User E-Sign Co-Sign Detail Recorded Client Recorded Date Recorded By Document 07/21/19 15:11 [id number] [email or web address] 07/21/19 15:12 [id number] 07/21/19 15:11 PMRU Outcome: Recreation Therapy Current Rec Ther Outcome/Goals Meet with Patient Regularly for Support Encourage Leisure Involvement Progression Toward Outcome/Goals Progressing Outcome/Goals Met Complete Rec Therapy Assessment Respiratory - Improve/Maintain Start: 07/20/19 22:36 Freq: DAILY@0700,1900 Status: Active Target: 07/28/19 Protocol: Activity Type Activity Date Activity User E-Sign Co-Sign Detail Recorded Client Recorded Date Recorded By Document 07/25/19 00:34 [id number] 07/25/19 00:35 [id number] 07/25/19 00:34 PMRU Outcome: Respiratory Does Patient Have a Trach No Current Respiratory Outcome/Goals Maintain/ Improve Baseline Respiratory Status Maintain/ Improve Activity Tolerance Prevent Pneumonia/ Atelectasis Progression Toward Outcome/Goals Progressing Safety- Improve/Maintain Start: 07/20/19 11:05 Freq: DAILY@0700,1900 Status: Active Target: 07/28/19 Protocol: Activity Type Activity Date Activity User E-Sign Co-Sign Detail Recorded Client Recorded Date Recorded By Document 07/25/19 00:34 [id number] 07/25/19 00:35 [id number] 07/25/19 00:34 PMRU Outcome: Safety Current Safety Outcome/Goals Remain Free of Injury or Harm Cooperates with Safety Measures for Least Restrictive Environment Prevent Falls/ Injury Progression Toward Outcome/Goals Progressing Outcome/Goals Met Comment PRINCESS main/EZE when in chair - Interdisciplinary Staff Present Caster Operator/Social Work Staff Present: Tiffany Bond LMSW Nursing Staff Present: Genaro Jennings, RN OT Staff Present: Karla Chavarria PT Staff Present: Niki Kathleen Rec Therapy Staff Present: Tracy Rivera BED LABORER Staff Present: Blade Garcia Medicine Note: Length of Stay: [] Anticipated Discharge Destination: Home Tentative Discharge Date: [] Discharged to: []
[2019-07-25] MEDS: Atorvastatin* 40 MG TAB PO SCH (19:25)
--- NOTE | 2019-07-25 19:49 | PN ---
Progress Note Date of Service: 07/25/19 Note: KD DANIEL was visited. Therapy notes read and reviewed. He was discussed in interdisciplinary team rounds. He has good ROM of the knee but has edema. He was started on Lasix today. He is moving a bit better. Will not be ready to go on Wednesday Current Medications: Active Medications Generic Name Dose Route Start Last Admin Trade Name Freq PRN Reason Stop Dose Admin Acetaminophen 650 mg 07/20/19 11:19 07/24/19 19:10 Tylenol Tab* PO 650 mg Q6H PRN Administration MILD PAIN or TEMP > 100.4 Amiodarone HCl 400 mg 07/20/19 21:00 07/25/19 08:56 Cordarone Tab* PO 07/26/19 23:59 400 mg BID MARINA Administration Amiodarone HCl 200 mg 07/27/19 09:00 Cordarone Tab* PO DAILY MARINA Apixaban 2.5 mg 07/20/19 21:00 07/25/19 08:56 Eliquis* PO 2.5 mg BID MARINA Administration Atorvastatin Calcium 40 mg 07/20/19 17:00 07/25/19 19:25 Lipitor* PO 40 mg 1700 MARINA Administration Citalopram Hydrobromide 20 mg 07/21/19 09:00 07/25/19 08:56 Celexa Tab* PO 20 mg DAILY MARINA Administration Diltiazem HCl 120 mg 07/21/19 09:00 07/25/19 08:56 Cardizem Cd Cap* PO 120 mg DAILY MARINA Administration Docusate Sodium 100 mg 07/20/19 21:00 07/25/19 08:57 Colace Cap* PO 100 mg BID MARINA Administration Fluticasone Propionate 2 spray 07/21/19 09:00 07/25/19 08:57 Flonase Nasal [place] 50mcg* BOTH NARES 2 spray DAILY MARINA Administration Furosemide 20 mg 07/25/19 09:00 07/25/19 08:56 Lasix Tab* PO 20 mg DAILY MARINA Administration Guaifenesin 5 ml 07/20/19 11:29 07/25/19 08:57 Robitussin 100 Mg/5ml Liq PO 5 ml Q6H PRN Administration COUGH Heparin Sodium (Porcine) 1 ml 07/20/19 22:30 07/25/19 19:26 Heparin Flush Picc/Ml/Cvc(*) FLUSH 1 ml 0600,1800 MARINA Administration Protocol Ipratropium [place] 0.5 mg 07/20/19 11:29 07/21/19 09:19 Atrovent 0.5 Mg Neb.Zaida* INH 0.5 mg Q4H PRN Administration SOB/WHEEZING Levalbuterol HCl 0.63 mg 07/20/19 19:02 07/21/19 09:19 Xopenex 0.63mg/3ml Neb* INH 0.63 mg Q4H PRN Administration SOB/WHEEZING Magnesium Hydroxide 30 ml 07/20/19 11:19 Milk Of Magnesia Liq* PO Q6H PRN CONSTIPATION Metoprolol Tartrate 50 mg 07/20/19 21:00 07/25/19 08:56 Lopressor Tab* PO 50 mg Q12HR MARINA Administration Pantoprazole Sodium 40 mg 07/21/19 09:00 07/25/19 08:56 Protonix Tab* PO 40 mg DAILY MARINA Administration Senna 2 tab 07/20/19 11:19 Senokot 8.6 Mg Tab* PO BEDTIME PRN CONSTIPATION Tiotropium [place] 2 puff 07/21/19 18:00 07/25/19 08:58 Spiriva Respimat 2.5 Mcg INH 2 puff QAM MARINA Administration Vital Signs: Vital Signs Temp Pulse Resp BP Pulse Ox 99.3 F 81 24 101/65 98 07/25/19 18:00 07/25/19 18:00 07/25/19 18:00 07/25/19 18:00 07/25/19 18:00 Exam: GENERAL: No acute distress. Alert and appropriate. LUNGS: few expiratory wheezes. HEART: Irregularly irregular ABDOMEN: Soft, + bowel sounds, non-tender, non-distended EXTREMITIES: BLE edema as well as scrotal and penile edema. NEUROLOGIC: Sensation intact x4. Motor 5/5 BLE except 4/5 left knee ext and hip flexion. Assessment/Plan: 84yo man s/p left TKR complicated by atrial fibrillation/arrhythmia 1. Left TKR: f/u Dr. Rodriguez. PT/OT. Pain meds as needed. Sutures removed 07/23. 2. Atrial fibrillation: cardizem, metoprolol, amiodarone, eliquis. 3. DVT prophylaxis: eliquis 4. Chronic kidney disease: Cr improved. 5. Depression: celexa 6. Wheezing/Resp: CXR 07/21 with hyperinflation despite no h/o copd/asthma. Started spiriva which seemed to help. on xopenex and atrovent prn. IS. 7. Hyperbilirubinema: normalized. 8. Hypocalcemia and Throbocytopenia: was seen by Dr. Flowers preop, but notes not available. Platelets better. 9. Impaired cognition: Speech notes mild memory deficit and plans to do 2 co- treatments with PT/OT. 10. Advanced directives: full code 11. Edema: Started Lasix; normally takes HCTZ at home 12. Est LOS: 08/01/19 07/25/19 19:50
[2019-07-25] MEDS: Acetaminophen TAB* 325 MG PO PRN (21:05)
[2019-07-26] MEDS: SPIRIVA Respimat* (tiotropium) 2.5 mcg/inh Inhaler INH SCH (09:14)
[2019-07-26] MEDS: Citalopram TAB* 20 MG PO SCH (09:17)
[2019-07-26] MEDS: Fluticasone NASAL SPRAY 50MCG* 16 gm SPRAY BTL BOTH NARES SCH (09:17)
[2019-07-26] MEDS: Amiodarone TAB* 400 MG PO SCH ×2 (09:17→20:58)
[2019-07-26] MEDS: Apixaban* 2.5 MG TAB PO SCH ×2 (09:17→20:58)
[2019-07-26] MEDS: Diltiazem CD CAP* 120 MG PO SCH (09:17)
[2019-07-26] MEDS: Furosemide TAB* 20 MG PO SCH (09:17)
[2019-07-26] MEDS: Metoprolol Tartrate TAB* 50 mg PO SCH ×2 (09:17→20:58)
[2019-07-26] MEDS: Pantoprazole TAB * 40 MG TAB PO SCH (09:18)
[2019-07-26] MEDS: Docusate CAP* 100 MG PO SCH (09:20)
[2019-07-26] MEDS ORDERED: Docusate CAP* 100 MG PO PRN (16:45)
--- NOTE | 2019-07-26 17:59 | PN ---
Progress Note Date of Service: 07/26/19 Note: KD DANIEL JR was visited. Therapy notes read and reviewed. He feels like he is breathing ok at rest. Legs are edematous. His Cr has trended down and we will increase Lasix. Check weights three times a week. Current Medications: Active Medications Generic Name Dose Route Start Last Admin Trade Name Freq PRN Reason Stop Dose Admin Acetaminophen 650 mg 07/20/19 11:19 07/25/19 21:05 Tylenol Tab* PO 650 mg Q6H PRN Administration MILD PAIN or TEMP > 100.4 Amiodarone HCl 400 mg 07/20/19 21:00 07/26/19 09:17 Cordarone Tab* PO 07/26/19 23:59 400 mg BID MARINA Administration Amiodarone HCl 200 mg 07/27/19 09:00 Cordarone Tab* PO DAILY MARINA Apixaban 2.5 mg 07/20/19 21:00 07/26/19 09:17 Eliquis* PO 2.5 mg BID MARINA Administration Atorvastatin Calcium 40 mg 07/20/19 17:00 07/25/19 19:25 Lipitor* PO 40 mg 1700 MARINA Administration Citalopram Hydrobromide 20 mg 07/21/19 09:00 07/26/19 09:17 Celexa Tab* PO 20 mg DAILY MARINA Administration Diltiazem HCl 120 mg 07/21/19 09:00 07/26/19 09:17 Cardizem Cd Cap* PO 120 mg DAILY MARINA Administration Docusate Sodium 100 mg 07/26/19 16:45 Colace Cap* PO BID PRN CONSTIPATION Fluticasone Propionate 2 spray 07/21/19 09:00 07/26/19 09:17 Flonase Nasal [place] 50mcg* BOTH NARES 2 spray DAILY MARINA Administration Furosemide 40 mg 07/27/19 09:00 Lasix Tab* PO DAILY MARINA Guaifenesin 5 ml 07/20/19 11:29 07/25/19 08:57 Robitussin 100 Mg/5ml Liq PO 5 ml Q6H PRN Administration COUGH Heparin Sodium (Porcine) 1 ml 07/20/19 22:30 07/26/19 05:47 Heparin Flush Picc/Ml/Cvc(*) FLUSH 1 ml 0600,1800 MAIRNA Administration Protocol Ipratropium [place] 0.5 mg 07/20/19 11:29 07/21/19 09:19 Atrovent 0.5 Mg Neb.Zaida* INH 0.5 mg Q4H PRN Administration SOB/WHEEZING Levalbuterol HCl 0.63 mg 07/20/19 19:02 07/21/19 09:19 Xopenex 0.63mg/3ml Neb* INH 0.63 mg Q4H PRN Administration SOB/WHEEZING Magnesium Hydroxide 30 ml 07/20/19 11:19 Milk Of Magnesia Liq* PO Q6H PRN CONSTIPATION Metoprolol Tartrate 50 mg 07/20/19 21:00 07/26/19 09:17 Lopressor Tab* PO 50 mg Q12HR MARINA Administration Multivitamins/Minerals 1 tab 07/27/19 09:00 Theragran/Minerals Tab* PO DAILY MARINA Pantoprazole Sodium 40 mg 07/21/19 09:00 07/26/19 09:18 Protonix Tab* PO 40 mg DAILY MARINA Administration Psyllium Hydrophilic Mucilloid 1 pkt 07/27/19 09:00 Metamucil Guy* PO DAILY MARINA Senna 2 tab 07/20/19 11:19 Senokot 8.6 Mg Tab* PO BEDTIME PRN CONSTIPATION Tiotropium [place] 2 puff 07/21/19 18:00 07/26/19 09:14 Spiriva Respimat 2.5 Mcg INH 2 puff QAM MARINA Administration Vital Signs: Vital Signs Temp Pulse Resp BP Pulse Ox 98.9 F 66 22 107/56 94 07/26/19 16:18 07/26/19 16:18 07/26/19 16:18 07/26/19 16:18 07/26/19 16:18 Exam: GENERAL: No acute distress. Alert and appropriate. LUNGS: few expiratory wheezes. HEART: Irregularly irregular ABDOMEN: Soft, + bowel sounds, non-tender, non-distended EXTREMITIES: BLE edema NEUROLOGIC: Sensation intact x4. Motor 5/5 BLE except 4/5 left knee ext and hip flexion. Assessment/Plan: 84yo man s/p left TKR complicated by atrial fibrillation/arrhythmia 1. Left TKR: f/u Dr. Rodriguez. PT/OT. Pain meds as needed. Sutures removed 07/23. 2. Atrial fibrillation: cardizem, metoprolol, amiodarone, eliquis. 3. DVT prophylaxis: eliquis 4. Chronic kidney disease: Cr improved. 5. Depression: celexa 6. Wheezing/Resp: CXR 07/21 with hyperinflation despite no h/o copd/asthma. Started spiriva which seemed to help. on xopenex and atrovent prn. IS. 7. Hyperbilirubinema: normalized. 8. Hypocalcemia and Throbocytopenia: was seen by Dr. Flowers preop, but notes not available. Platelets better. 9. Impaired cognition: Speech notes mild memory deficit and plans to do 2 co- treatments with PT/OT. 10. Advanced directives: full code 11. Edema: Started Lasix; increase to 40; normally takes HCTZ at home 12. Est LOS: 08/01/19 07/26/19 17:59
[2019-07-26] MEDS: Atorvastatin* 40 MG TAB PO SCH (18:28)
[2019-07-26] MEDS: Ipratropium 0.5MG/2.5ML NEB* 0.5 MG/2.5 ML NEB.SOLN INH PRN (20:58)
[2019-07-27] MEDS: PRESERVISION AREDS PO SCH ×3 (00:26→22:14)
[2019-07-27] MEDS: Levalbuterol 0.63MG/3ML NEB* UNIT OF USE INH PRN (00:41)
[2019-07-27] MEDS: Psyllium PAK PO SCH (09:21)
[2019-07-27] MEDS: Metoprolol Tartrate TAB* 50 mg PO SCH ×2 (09:21→22:14)
[2019-07-27] MEDS: Pantoprazole TAB * 40 MG TAB PO SCH (09:22)
[2019-07-27] MEDS: Amiodarone TAB* 200 MG PO SCH (09:22)
[2019-07-27] MEDS: Apixaban* 2.5 MG TAB PO SCH ×2 (09:22→22:14)
[2019-07-27] MEDS: Citalopram TAB* 20 MG PO SCH (09:22)
[2019-07-27] MEDS: Diltiazem CD CAP* 120 MG PO SCH (09:22)
[2019-07-27] MEDS: Furosemide TAB* 20 MG PO SCH (09:22)
[2019-07-27] MEDS: Fluticasone NASAL SPRAY 50MCG* 16 gm SPRAY BTL BOTH NARES SCH (09:26)
[2019-07-27] MEDS: SPIRIVA Respimat* (tiotropium) 2.5 mcg/inh Inhaler INH SCH (09:28)
[2019-07-27] MEDS: Atorvastatin* 40 MG TAB PO SCH (17:26)
--- NOTE | 2019-07-27 17:49 | PN ---
Progress Note Date of Service: 07/27/19 Note: KD TIPTONRAGHAVENDRA CALIXTO was visited. Therapy notes read and reviewed. Seems to be breathing a little easier today. Will check his weight in the morning, but doing better Current Medications: Active Medications Generic Name Dose Route Start Last Admin Trade Name Freq PRN Reason Stop Dose Admin Acetaminophen 650 mg 07/20/19 11:19 07/25/19 21:05 Tylenol Tab* PO 650 mg Q6H PRN Administration MILD PAIN or TEMP > 100.4 Amiodarone HCl 200 mg 07/27/19 09:00 07/27/19 09:22 Cordarone Tab* PO 200 mg DAILY MARINA Administration Apixaban 2.5 mg 07/20/19 21:00 07/27/19 09:22 Eliquis* PO 2.5 mg BID MARINA Administration Atorvastatin Calcium 40 mg 07/20/19 17:00 07/27/19 17:26 Lipitor* PO 40 mg 1700 MARINA Administration Citalopram Hydrobromide 20 mg 07/21/19 09:00 07/27/19 09:22 Celexa Tab* PO 20 mg DAILY MARINA Administration Diltiazem HCl 120 mg 07/21/19 09:00 07/27/19 09:22 Cardizem Cd Cap* PO 120 mg DAILY MARINA Administration Docusate Sodium 100 mg 07/26/19 16:45 Colace Cap* PO BID PRN CONSTIPATION Fluticasone Propionate 2 spray 07/21/19 09:00 07/27/19 09:26 Flonase Nasal [place] 50mcg* BOTH NARES 2 spray DAILY MARINA Administration Furosemide 40 mg 07/27/19 09:00 07/27/19 09:22 Lasix Tab* PO 40 mg DAILY MARINA Administration Guaifenesin 5 ml 07/20/19 11:29 07/25/19 08:57 Robitussin 100 Mg/5ml Liq PO 5 ml Q6H PRN Administration COUGH Heparin Sodium (Porcine) 1 ml 07/20/19 22:30 07/27/19 17:27 Heparin Flush Picc/Ml/Cvc(*) FLUSH 1 ml 0600,1800 MARINA Administration Protocol Ipratropium [place] 0.5 mg 07/20/19 11:29 07/26/19 20:58 Atrovent 0.5 Mg Neb.Zaida* INH 0.5 mg Q4H PRN Administration SOB/WHEEZING Levalbuterol HCl 0.63 mg 07/20/19 19:02 07/27/19 00:41 Xopenex 0.63mg/3ml Neb* INH 0.63 mg Q4H PRN Administration SOB/WHEEZING Magnesium Hydroxide 30 ml 07/20/19 11:19 Milk Of Magnesia Liq* PO Q6H PRN CONSTIPATION Metoprolol Tartrate 50 mg 07/20/19 21:00 07/27/19 09:21 Lopressor Tab* PO 50 mg Q12HR MARINA Administration Multivitamins/Minerals 1 cap 07/26/19 23:00 07/27/19 09:21 Preservision Areds 2 PO 1 cap BID MARINA Administration Pantoprazole Sodium 40 mg 07/21/19 09:00 07/27/19 09:22 Protonix Tab* PO 40 mg DAILY MARINA Administration Psyllium Hydrophilic Mucilloid 1 pkt 07/27/19 09:00 07/27/19 09:21 Metamucil Guy* PO 1 pkt DAILY MARINA Administration Senna 2 tab 07/20/19 11:19 Senokot 8.6 Mg Tab* PO BEDTIME PRN CONSTIPATION Tiotropium [place] 2 puff 07/21/19 18:00 07/27/19 09:28 Spiriva Respimat 2.5 Mcg INH 2 puff QAM MARINA Administration Vital Signs: Vital Signs Temp Pulse Resp BP Pulse Ox 98.7 F 61 22 112/56 98 07/27/19 16:52 07/27/19 16:52 07/27/19 16:52 07/27/19 16:52 07/27/19 16:52 Exam: GENERAL: No acute distress. Alert and appropriate. LUNGS: few expiratory wheezes. HEART: Irregularly irregular ABDOMEN: Soft, + bowel sounds, non-tender, non-distended EXTREMITIES: BLE edema, scrotal edema NEUROLOGIC: Sensation intact x4. Motor 5/5 BLE except 4/5 left knee ext and hip flexion. Assessment/Plan: 84yo man s/p left TKR complicated by atrial fibrillation/arrhythmia 1. Left TKR: f/u Dr. Rodriguez. PT/OT. Pain meds as needed. Sutures removed 07/23. 2. Atrial fibrillation: cardizem, metoprolol, amiodarone, eliquis. 3. DVT prophylaxis: eliquis 4. Chronic kidney disease: Cr improved. 5. Depression: celexa 6. Wheezing/Resp: CXR 07/21 with hyperinflation despite no h/o copd/asthma. Started spiriva which seemed to help. on xopenex and atrovent prn. IS. 7. Hyperbilirubinema: normalized. 8. Hypocalcemia and Thrombocytopenia: was seen by Dr. Flowers preop, but notes not available. Check in am 9. Impaired cognition: Speech notes mild memory deficit and plans to do 2 co- treatments with PT/OT. 10. Advanced directives: full code 11. Edema: Lasix, increased to 40; normally takes HCTZ at home 12. Est LOS: 08/01/19 07/27/19 17:50 07/27/19 17:50
[2019-07-28] MEDS: Levalbuterol 0.63MG/3ML NEB* UNIT OF USE INH PRN (02:02)
[2019-07-28 05:58] LABS: Albumin 2.8 g/dL (3.2-5.2); Albumin/Globulin Ratio 1.2 (1-3); BUN/Creatinine Ratio 14.8 (8-20); Calcium 7.9 mg/dL (8.6-10.3); EGFR African American 57.5 (>60); EGFR Non-African American 47.5 (>60); Globulin 2.3 g/dL (2-4); Potassium 3.5 mmol/L (3.5-5.0); Total Bilirubin 0.8 mg/dL (0.2-1.0); Total Protein 5.1 g/dL (6.4-8.9)
[2019-07-28 05:59] LABS: ABS Eosinophils 0.1 10^3/ul (0-0.6); ABS Lymphocytes 2.8 10^3/ul (1.0-4.8); ABS Monocytes 0.6 10^3/ul (0-0.8); ABS Neutrophils 4.4 10^3/ul (1.5-7.7); Eosinophil % 1.1 %; Hematocrit 25 % (42-52); Hemoglobin 8.4 g/dL (14.0-18.0); Lymphocyte % 35.3 %; Mean Corpuscular HGB Conc 34 g/dL (31-36); Mean Corpuscular Hemoglobin 36 pg (27-31); Mean Corpuscular Volume 106 fL (80-94); Mean Platelet Volume 8.2 fL (7.4-10.4); Nucleated Red Blood Cells % 0.1; Platelet Count 146 10^3/uL (150-450); Red Blood Count 2.36 10^6 /uL (4.18-5.48); Red Cell Distribution Width 16 % (10-15); White Blood Count 7.8 10^3/uL (3.5-10.8)
[2019-07-28] MEDS: Furosemide TAB* 20 MG PO SCH (09:44)
[2019-07-28] MEDS: Apixaban* 2.5 MG TAB PO SCH ×2 (09:46→20:49)
[2019-07-28] MEDS: Pantoprazole TAB * 40 MG TAB PO SCH (09:46)
[2019-07-28] MEDS: Metoprolol Tartrate TAB* 50 mg PO SCH ×2 (09:46→20:49)
[2019-07-28] MEDS: Amiodarone TAB* 200 MG PO SCH (09:46)
[2019-07-28] MEDS: Diltiazem CD CAP* 120 MG PO SCH (09:46)
[2019-07-28] MEDS: Psyllium PAK PO SCH (09:47)
[2019-07-28] MEDS: SPIRIVA Respimat* (tiotropium) 2.5 mcg/inh Inhaler INH SCH (09:48)
[2019-07-28] MEDS: Fluticasone NASAL SPRAY 50MCG* 16 gm SPRAY BTL BOTH NARES SCH (09:50)
[2019-07-28] MEDS: Citalopram TAB* 20 MG PO SCH (09:51)
[2019-07-28] MEDS: PRESERVISION AREDS PO SCH ×2 (09:52→20:50)
[2019-07-28] MEDS: Acetaminophen TAB* 325 MG PO PRN (13:32)
--- NOTE | 2019-07-28 16:00 | PN ---
Progress Note Date of Service: 07/28/19 Note: KD DANIEL was visited. Therapy notes read and reviewed. He seems to be diuresing and legs are getting smaller. No weight today. Breathing a little easier Current Medications: Active Medications Generic Name Dose Route Start Last Admin Trade Name Freq PRN Reason Stop Dose Admin Acetaminophen 650 mg 07/20/19 11:19 07/28/19 13:32 Tylenol Tab* PO 650 mg Q6H PRN Administration MILD PAIN or TEMP > 100.4 Amiodarone HCl 200 mg 07/27/19 09:00 07/28/19 09:46 Cordarone Tab* PO 200 mg DAILY MARINA Administration Apixaban 2.5 mg 07/20/19 21:00 07/28/19 09:46 Eliquis* PO 2.5 mg BID MARINA Administration Atorvastatin Calcium 40 mg 07/20/19 17:00 07/27/19 17:26 Lipitor* PO 40 mg 1700 MARINA Administration Citalopram Hydrobromide 20 mg 07/21/19 09:00 07/28/19 09:51 Celexa Tab* PO 20 mg DAILY MARINA Administration Diltiazem HCl 120 mg 07/21/19 09:00 07/28/19 09:46 Cardizem Cd Cap* PO 120 mg DAILY MARINA Administration Docusate Sodium 100 mg 07/26/19 16:45 Colace Cap* PO BID PRN CONSTIPATION Fluticasone Propionate 2 spray 07/21/19 09:00 07/28/19 09:50 Flonase Nasal [place] 50mcg* BOTH NARES 2 spray DAILY MARINA Administration Furosemide 40 mg 07/27/19 09:00 07/28/19 09:44 Lasix Tab* PO 40 mg DAILY MARINA Administration Guaifenesin 5 ml 07/20/19 11:29 07/25/19 08:57 Robitussin 100 Mg/5ml Liq PO 5 ml Q6H PRN Administration COUGH Heparin Sodium (Porcine) 1 ml 07/20/19 22:30 07/28/19 05:43 Heparin Flush Picc/Ml/Cvc(*) FLUSH 1 ml 0600,1800 MARINA Administration Protocol Ipratropium [place] 0.5 mg 07/20/19 11:29 07/26/19 20:58 Atrovent 0.5 Mg Neb.Zaida* INH 0.5 mg Q4H PRN Administration SOB/WHEEZING Levalbuterol HCl 0.63 mg 07/20/19 19:02 07/28/19 02:02 Xopenex 0.63mg/3ml Neb* INH 0.63 mg Q4H PRN Administration SOB/WHEEZING Magnesium Hydroxide 30 ml 07/20/19 11:19 Milk Of Magnesia Liq* PO Q6H PRN CONSTIPATION Metoprolol Tartrate 50 mg 07/20/19 21:00 07/28/19 09:46 Lopressor Tab* PO 50 mg Q12HR MARINA Administration Multivitamins/Minerals 1 cap 07/26/19 23:00 07/28/19 09:52 Preservision Areds 2 PO 1 cap BID MARINA Administration Pantoprazole Sodium 40 mg 07/21/19 09:00 07/28/19 09:46 Protonix Tab* PO 40 mg DAILY MARINA Administration Psyllium Hydrophilic Mucilloid 1 pkt 07/27/19 09:00 07/28/19 09:47 Metamucil Guy* PO 1 pkt DAILY MARINA Administration Senna 2 tab 07/20/19 11:19 Senokot 8.6 Mg Tab* PO BEDTIME PRN CONSTIPATION Tiotropium [place] 2 puff 07/21/19 18:00 07/28/19 09:48 Spiriva Respimat 2.5 Mcg INH 2 puff QAM MARINA Administration Vital Signs: Vital Signs Temp Pulse Resp BP Pulse Ox 98.4 F 64 22 123/54 96 07/28/19 06:35 07/28/19 06:35 07/28/19 06:35 07/28/19 06:35 07/28/19 06:35 Lab Results: Laboratory Results - last 24 hr 07/28/19 07/28/19 05:34 05:34 WBC 7.8 RBC 2.36 L Hgb 8.4 L Hct 25 L MCV 106 H MCH 36 H MCHC 34 RDW 16 H Plt Count 146 L MPV 8.2 Neut % (Auto) 55.8 Lymph % (Auto) 35.3 [place] % (Auto) 7.6 Eos % (Auto) 1.1 Baso % (Auto) 0.2 Absolute Neuts (auto) 4.4 Absolute Lymphs (auto) 2.8 Absolute Monos (auto) 0.6 Absolute Eos (auto) 0.1 Absolute Basos (auto) 0.0 Absolute Nucleated RBC 0.0 Nucleated RBC % 0.1 Sodium 143 Potassium 3.5 Chloride 110 Carbon Dioxide 27 Anion Gap 6 BUN 21 Creatinine 1.42 H Est GFR ( Amer) 57.5 Est GFR (Non-Af Amer) 47.5 BUN/Creatinine Ratio 14.8 Glucose 100 Calcium 7.9 L Total Bilirubin 0.80 AST 20 ALT 17 Alkaline Phosphatase 45 Total Protein 5.1 L Albumin 2.8 L Globulin 2.3 Albumin/Globulin Ratio 1.2 Exam: GENERAL: No acute distress. Alert and appropriate. LUNGS: few expiratory wheezes. HEART: Irregularly irregular ABDOMEN: Soft, + bowel sounds, non-tender, non-distended EXTREMITIES: BLE edema, scrotal edema NEUROLOGIC: Sensation intact x4. Motor 5/5 BLE except 4/5 left knee ext and hip flexion. Assessment/Plan: 84yo man s/p left TKR complicated by atrial fibrillation/arrhythmia 1. Left TKR: f/u Dr. Rodriguez. PT/OT. Pain meds as needed. Sutures removed 07/23. 2. Atrial fibrillation: cardizem, metoprolol, amiodarone, eliquis. 3. DVT prophylaxis: eliquis 4. Chronic kidney disease: Cr improved, may need to increase eliquis. 5. Depression: celexa 6. Wheezing/Resp: CXR 07/21 with hyperinflation despite no h/o copd/asthma. Spiriva/Xopenex/Atrovent. Better with increased Lasix. 7. Hyperbilirubinema: normalized. 8. Hypocalcemia and Thrombocytopenia: was seen by Dr. Flowers preop, but notes not available. Platelets 146K 9. Impaired cognition: Speech notes mild memory deficit and plans to do 2 co- treatments with PT/OT. 10. Advanced directives: full code 11. Edema: Lasix, increased to 40; normally takes HCTZ at home 12. Est LOS: 08/01/19 07/28/19 16:01 07/28/19 16:02
[2019-07-28] MEDS: Atorvastatin* 40 MG TAB PO SCH (16:55)
[2019-07-29] MEDS: Levalbuterol 0.63MG/3ML NEB* UNIT OF USE INH PRN (01:02)
[2019-07-29] MEDS: Psyllium PAK PO SCH (09:27)
[2019-07-29] MEDS: Potassium Chlor TAB* 20 MEQ TAB.ER PO SCH (09:28)
[2019-07-29] MEDS: Furosemide TAB* 20 MG PO SCH (09:28)
[2019-07-29] MEDS: Apixaban* 2.5 MG TAB PO SCH ×2 (09:28→20:53)
[2019-07-29] MEDS: Metoprolol Tartrate TAB* 50 mg PO SCH ×2 (09:28→20:53)
[2019-07-29] MEDS: Diltiazem CD CAP* 120 MG PO SCH (09:29)
[2019-07-29] MEDS: SPIRIVA Respimat* (tiotropium) 2.5 mcg/inh Inhaler INH SCH (09:29)
[2019-07-29] MEDS: Fluticasone NASAL SPRAY 50MCG* 16 gm SPRAY BTL BOTH NARES SCH (09:30)
[2019-07-29] MEDS: Citalopram TAB* 20 MG PO SCH (09:30)
[2019-07-29] MEDS: Amiodarone TAB* 200 MG PO SCH (09:39)
[2019-07-29] MEDS: Pantoprazole TAB * 40 MG TAB PO SCH (09:55)
[2019-07-29] MEDS: PRESERVISION AREDS PO SCH ×2 (10:54→20:53)
[2019-07-29] MEDS: Atorvastatin* 40 MG TAB PO SCH (17:39)
--- NOTE | 2019-07-29 17:54 | PN ---
Progress Note Date of Service: 07/29/19 Note: KD DANIEL was visited. Therapy notes read and reviewed. Definitely breathing easier and feet are less edematous. Will check BMP to see if his eliquis needs to go to 5 Current Medications: Active Medications Generic Name Dose Route Start Last Admin Trade Name Freq PRN Reason Stop Dose Admin Acetaminophen 650 mg 07/20/19 11:19 07/28/19 13:32 Tylenol Tab* PO 650 mg Q6H PRN Administration MILD PAIN or TEMP > 100.4 Amiodarone HCl 200 mg 07/27/19 09:00 07/29/19 09:39 Cordarone Tab* PO 200 mg DAILY MARINA Administration Apixaban 2.5 mg 07/20/19 21:00 07/29/19 09:28 Eliquis* PO 2.5 mg BID MARINA Administration Atorvastatin Calcium 40 mg 07/20/19 17:00 07/29/19 17:39 Lipitor* PO 40 mg 1700 MARINA Administration Citalopram Hydrobromide 20 mg 07/21/19 09:00 07/29/19 09:30 Celexa Tab* PO 20 mg DAILY MARINA Administration Diltiazem HCl 120 mg 07/21/19 09:00 07/29/19 09:29 Cardizem Cd Cap* PO 120 mg DAILY MARINA Administration Docusate Sodium 100 mg 07/26/19 16:45 Colace Cap* PO BID PRN CONSTIPATION Fluticasone Propionate 2 spray 07/21/19 09:00 07/29/19 09:30 Flonase Nasal [place] 50mcg* BOTH NARES 2 spray DAILY MARINA Administration Furosemide 40 mg 07/27/19 09:00 07/29/19 09:28 Lasix Tab* PO 40 mg DAILY MARINA Administration Guaifenesin 5 ml 07/20/19 11:29 07/25/19 08:57 Robitussin 100 Mg/5ml Liq PO 5 ml Q6H PRN Administration COUGH Heparin Sodium (Porcine) 1 ml 07/20/19 22:30 07/29/19 17:39 Heparin Flush Picc/Ml/Cvc(*) FLUSH 1 ml 0600,1800 MARINA Administration Protocol Ipratropium [place] 0.5 mg 07/20/19 11:29 07/26/19 20:58 Atrovent 0.5 Mg Neb.Zaida* INH 0.5 mg Q4H PRN Administration SOB/WHEEZING Levalbuterol HCl 0.63 mg 07/20/19 19:02 07/29/19 01:02 Xopenex 0.63mg/3ml Neb* INH 0.63 mg Q4H PRN Administration SOB/WHEEZING Magnesium Hydroxide 30 ml 07/20/19 11:19 Milk Of Magnesia Liq* PO Q6H PRN CONSTIPATION Metoprolol Tartrate 50 mg 07/20/19 21:00 07/29/19 09:28 Lopressor Tab* PO 50 mg Q12HR MARINA Administration Multivitamins/Minerals 1 cap 07/26/19 23:00 07/29/19 10:54 Preservision Areds 2 PO 1 cap BID MARINA Administration Pantoprazole Sodium 40 mg 07/21/19 09:00 07/29/19 09:55 Protonix Tab* PO 40 mg DAILY MRAINA Administration Potassium Chloride 20 meq 07/29/19 09:00 07/29/19 09:28 Klor Con Er Tab* PO 20 meq DAILY MARINA Administration Psyllium Hydrophilic Mucilloid 1 pkt 07/27/19 09:00 07/29/19 09:27 Metamucil Guy* PO 1 pkt DAILY MARINA Administration Senna 2 tab 07/20/19 11:19 Senokot 8.6 Mg Tab* PO BEDTIME PRN CONSTIPATION Tiotropium [place] 2 puff 07/21/19 18:00 07/29/19 09:29 Spiriva Respimat 2.5 Mcg INH 2 puff QAM MARINA Administration Vital Signs: Vital Signs Temp Pulse Resp BP Pulse Ox 98.3 F 71 16 120/57 99 07/29/19 06:12 07/29/19 06:12 07/29/19 09:25 07/29/19 06:12 07/29/19 09:25 Exam: GENERAL: No acute distress. Alert and appropriate. LUNGS: few expiratory wheezes. HEART: Irregularly irregular ABDOMEN: Soft, + bowel sounds, non-tender, non-distended EXTREMITIES: BLE edema, scrotal edema NEUROLOGIC: Sensation intact x4. Motor 5/5 BLE except 4/5 left knee ext and hip flexion. Assessment/Plan: 84yo man s/p left TKR complicated by atrial fibrillation/arrhythmia 1. Left TKR: f/u Dr. Rodriguez. PT/OT. Pain meds as needed. Sutures removed 07/23. 2. Atrial fibrillation: cardizem, metoprolol, amiodarone, eliquis. 3. DVT prophylaxis: eliquis 4. Chronic kidney disease: Cr improved, may need to increase eliquis. 5. Depression: celexa 6. Wheezing/Resp: CXR 07/21 with hyperinflation despite no h/o copd/asthma. Spiriva/Xopenex/Atrovent. Better with increased Lasix. 7. Hyperbilirubinema: normalized. 8. Hypocalcemia and Thrombocytopenia: was seen by Dr. Lionel cuevas, but notes not available. Platelets 146K 9. Impaired cognition: Speech notes mild memory deficit and plans to do 2 co- treatments with PT/OT. 10. Advanced directives: full code 11. Edema: Lasix, increased to 40; normally takes HCTZ at home 12. Est LOS: 08/01/19 07/29/19 17:55
[2019-07-30] MEDS: Acetaminophen TAB* 325 MG PO PRN (05:34)
[2019-07-30 05:39] LABS: BUN/Creatinine Ratio 14.9 (8-20); Calcium 7.9 mg/dL (8.6-10.3); EGFR African American 54.8 (>60); EGFR Non-African American 45.3 (>60); Potassium 3.4 mmol/L (3.5-5.0)
[2019-07-30] MEDS: SPIRIVA Respimat* (tiotropium) 2.5 mcg/inh Inhaler INH SCH (07:14)
[2019-07-30] MEDS: Amiodarone TAB* 200 MG PO SCH (09:56)
[2019-07-30] MEDS: Fluticasone NASAL SPRAY 50MCG* 16 gm SPRAY BTL BOTH NARES SCH (09:57)
[2019-07-30] MEDS: Citalopram TAB* 20 MG PO SCH (09:57)
[2019-07-30] MEDS: Apixaban* 2.5 MG TAB PO SCH ×2 (09:57→22:57)
[2019-07-30] MEDS: Diltiazem CD CAP* 120 MG PO SCH (09:57)
[2019-07-30] MEDS: Furosemide TAB* 20 MG PO SCH (09:58)
[2019-07-30] MEDS: Pantoprazole TAB * 40 MG TAB PO SCH (09:58)
[2019-07-30] MEDS: Metoprolol Tartrate TAB* 50 mg PO SCH ×2 (09:58→22:57)
[2019-07-30] MEDS: Potassium Chlor TAB* 20 MEQ TAB.ER PO SCH (09:58)
[2019-07-30] MEDS: Psyllium PAK PO SCH (09:59)
[2019-07-30] MEDS: PRESERVISION AREDS PO SCH ×2 (10:14→22:57)
[2019-07-30] MEDS: Atorvastatin* 40 MG TAB PO SCH (17:43)
--- NOTE | 2019-07-30 21:03 | PN ---
Progress Note Date of Service: 07/30/19 Note: KD DANIEL was visited. Nursing notes read and reviewed. He has no complaints today breathing easy. Legs less edematous. Current Medications: Active Medications Generic Name Dose Route Start Last Admin Trade Name Freq PRN Reason Stop Dose Admin Acetaminophen 650 mg 07/20/19 11:19 07/30/19 05:34 Tylenol Tab* PO 650 mg Q6H PRN Administration MILD PAIN or TEMP > 100.4 Amiodarone HCl 200 mg 07/27/19 09:00 07/30/19 09:56 Cordarone Tab* PO 200 mg DAILY MARINA Administration Apixaban 2.5 mg 07/20/19 21:00 07/30/19 09:57 Eliquis* PO 2.5 mg BID MARINA Administration Atorvastatin Calcium 40 mg 07/20/19 17:00 07/30/19 17:43 Lipitor* PO 40 mg 1700 MARINA Administration Citalopram Hydrobromide 20 mg 07/21/19 09:00 07/30/19 09:57 Celexa Tab* PO 20 mg DAILY MARINA Administration Diltiazem HCl 120 mg 07/21/19 09:00 07/30/19 09:57 Cardizem Cd Cap* PO 120 mg DAILY MARINA Administration Docusate Sodium 100 mg 07/26/19 16:45 Colace Cap* PO BID PRN CONSTIPATION Fluticasone Propionate 2 spray 07/21/19 09:00 07/30/19 09:57 Flonase Nasal [place] 50mcg* BOTH NARES 2 spray DAILY MARINA Administration Furosemide 40 mg 07/27/19 09:00 07/30/19 09:58 Lasix Tab* PO 40 mg DAILY MARINA Administration Guaifenesin 5 ml 07/20/19 11:29 07/25/19 08:57 Robitussin 100 Mg/5ml Liq PO 5 ml Q6H PRN Administration COUGH Heparin Sodium (Porcine) 1 ml 07/20/19 22:30 07/30/19 17:43 Heparin Flush Picc/Ml/Cvc(*) FLUSH 1 ml 0600,1800 MARINA Administration Protocol Ipratropium [place] 0.5 mg 07/20/19 11:29 07/26/19 20:58 Atrovent 0.5 Mg Neb.Zaida* INH 0.5 mg Q4H PRN Administration SOB/WHEEZING Levalbuterol HCl 0.63 mg 07/20/19 19:02 07/29/19 01:02 Xopenex 0.63mg/3ml Neb* INH 0.63 mg Q4H PRN Administration SOB/WHEEZING Magnesium Hydroxide 30 ml 07/20/19 11:19 Milk Of Magnesia Liq* PO Q6H PRN CONSTIPATION Metoprolol Tartrate 50 mg 07/20/19 21:00 07/30/19 09:58 Lopressor Tab* PO 50 mg Q12HR MARINA Administration Multivitamins/Minerals 1 cap 07/26/19 23:00 07/30/19 10:14 Preservision Areds 2 PO 1 cap BID MARINA Administration Pantoprazole Sodium 40 mg 07/21/19 09:00 07/30/19 09:58 Protonix Tab* PO 40 mg DAILY MARINA Administration Potassium Chloride 20 meq 07/29/19 09:00 07/30/19 09:58 Klor Con Er Tab* PO 20 meq DAILY MARINA Administration Psyllium Hydrophilic Mucilloid 1 pkt 07/27/19 09:00 07/30/19 09:59 Metamucil Guy* PO 1 pkt DAILY MARINA Administration Senna 2 tab 07/20/19 11:19 Senokot 8.6 Mg Tab* PO BEDTIME PRN CONSTIPATION Tiotropium [place] 2 puff 07/21/19 18:00 07/30/19 07:14 Spiriva Respimat 2.5 Mcg INH Not Given [facility] [place] Vital Signs: Vital Signs Temp Pulse Resp BP Pulse Ox 98.4 F 57 18 108/56 97 07/30/19 16:00 07/30/19 16:00 07/30/19 19:54 07/30/19 16:15 07/30/19 19:54 Lab Results: Laboratory Results - last 24 hr 07/30/19 05:10 Sodium 142 Potassium 3.4 L Chloride 108 Carbon Dioxide 30 Anion Gap 4 BUN 22 Creatinine 1.48 H Est GFR ( Amer) 54.8 Est GFR (Non-Af Amer) 45.3 BUN/Creatinine Ratio 14.9 Glucose 98 Calcium 7.9 L Exam: GENERAL: No acute distress. Alert and appropriate. LUNGS: few expiratory wheezes. HEART: Irregularly irregular ABDOMEN: Soft, + bowel sounds, non-tender, non-distended EXTREMITIES: BLE edema, scrotal edema improving NEUROLOGIC: Sensation intact x4. Motor 5/5 BLE except 4/5 left knee ext and hip flexion. Assessment/Plan: 84yo man s/p left TKR complicated by atrial fibrillation/arrhythmia 1. Left TKR: f/u Dr. Rodriguez. PT/OT. Pain meds as needed. Sutures removed 07/23. 2. Atrial fibrillation: cardizem, metoprolol, amiodarone, eliquis. 3. DVT prophylaxis: eliquis 4. Chronic kidney disease: Cr rising but still ok. 5. Depression: celexa 6. Wheezing/Resp: CXR 07/21 with hyperinflation despite no h/o copd/asthma. Spiriva/Xopenex/Atrovent. Better with increased Lasix. 7. Hyperbilirubinema: normalized. 8. Hypocalcemia and Thrombocytopenia: was seen by Dr. Flowers preop, but notes not available. Platelets 146K 9. Impaired cognition: Speech notes mild memory deficit and plans to do 2 co- treatments with PT/OT. 10. Advanced directives: full code 11. Edema: Lasix, increased to 40; normally takes HCTZ at home 12. Est LOS: 08/01/19 07/30/19 21:04 07/30/19 21:05
[2019-07-30] MEDS ORDERED: Potassium Chlor TAB* 20 MEQ TAB.ER PO ONE (21:04)
[2019-07-31] MEDS: PRESERVISION AREDS PO SCH ×2 (08:01→20:59)
[2019-07-31] MEDS: Apixaban* 2.5 MG TAB PO SCH ×2 (08:02→20:59)
[2019-07-31] MEDS: Amiodarone TAB* 200 MG PO SCH (08:02)
[2019-07-31] MEDS: Furosemide TAB* 20 MG PO SCH (08:02)
[2019-07-31] MEDS: Pantoprazole TAB * 40 MG TAB PO SCH (08:03)
[2019-07-31] MEDS: Potassium Chlor TAB* 20 MEQ TAB.ER PO SCH (08:03)
[2019-07-31] MEDS: Metoprolol Tartrate TAB* 50 mg PO SCH ×2 (08:03→20:59)
[2019-07-31] MEDS: Diltiazem CD CAP* 120 MG PO SCH (08:03)
[2019-07-31] MEDS: Fluticasone NASAL SPRAY 50MCG* 16 gm SPRAY BTL BOTH NARES SCH (08:04)
[2019-07-31] MEDS: Psyllium PAK PO SCH ×2 (08:04→08:15)
[2019-07-31] MEDS: Citalopram TAB* 20 MG PO SCH (08:04)
[2019-07-31] MEDS: SPIRIVA Respimat* (tiotropium) 2.5 mcg/inh Inhaler INH SCH (08:06)
[2019-07-31] MEDS: Atorvastatin* 40 MG TAB PO SCH (16:41)
--- NOTE | 2019-07-31 16:43 | PN ---
Progress Note Date of Service: 07/31/19 Note: KD DANIEL JR was visited. Therapy notes read and reviewed. He seems ready for discharge in the morning. Will check K+ in am. Will need to pull midline Current Medications: Active Medications Generic Name Dose Route Start Last Admin Trade Name Freq PRN Reason Stop Dose Admin Acetaminophen 650 mg 07/20/19 11:19 07/30/19 05:34 Tylenol Tab* PO 650 mg Q6H PRN Administration MILD PAIN or TEMP > 100.4 Amiodarone HCl 200 mg 07/27/19 09:00 07/31/19 08:02 Cordarone Tab* PO 200 mg DAILY MARINA Administration Apixaban 2.5 mg 07/20/19 21:00 07/31/19 08:02 Eliquis* PO 2.5 mg BID MARINA Administration Atorvastatin Calcium 40 mg 07/20/19 17:00 07/31/19 16:41 Lipitor* PO 40 mg 1700 MARINA Administration Citalopram Hydrobromide 20 mg 07/21/19 09:00 07/31/19 08:04 Celexa Tab* PO 20 mg DAILY MARINA Administration Diltiazem HCl 120 mg 07/21/19 09:00 07/31/19 08:03 Cardizem Cd Cap* PO 120 mg DAILY MARINA Administration Docusate Sodium 100 mg 07/26/19 16:45 Colace Cap* PO BID PRN CONSTIPATION Fluticasone Propionate 2 spray 07/21/19 09:00 07/31/19 08:04 Flonase Nasal [place] 50mcg* BOTH NARES 2 spray DAILY MARINA Administration Furosemide 40 mg 07/27/19 09:00 07/31/19 08:02 Lasix Tab* PO 40 mg DAILY MARINA Administration Guaifenesin 5 ml 07/20/19 11:29 07/25/19 08:57 Robitussin 100 Mg/5ml Liq PO 5 ml Q6H PRN Administration COUGH Heparin Sodium (Porcine) 1 ml 07/20/19 22:30 07/31/19 16:41 Heparin Flush Picc/Ml/Cvc(*) FLUSH 1 ml 0600,1800 MARINA Administration Protocol Ipratropium [place] 0.5 mg 07/20/19 11:29 07/26/19 20:58 Atrovent 0.5 Mg Neb.Zaida* INH 0.5 mg Q4H PRN Administration SOB/WHEEZING Levalbuterol HCl 0.63 mg 07/20/19 19:02 07/29/19 01:02 Xopenex 0.63mg/3ml Neb* INH 0.63 mg Q4H PRN Administration SOB/WHEEZING Magnesium Hydroxide 30 ml 07/20/19 11:19 Milk Of Magnesia Liq* PO Q6H PRN CONSTIPATION Metoprolol Tartrate 50 mg 07/20/19 21:00 07/31/19 08:03 Lopressor Tab* PO 50 mg Q12HR MARINA Administration Multivitamins/Minerals 1 cap 07/26/19 23:00 07/31/19 08:01 Preservision Areds 2 PO 1 cap BID MARINA Administration Pantoprazole Sodium 40 mg 07/21/19 09:00 07/31/19 08:03 Protonix Tab* PO 40 mg DAILY MARINA Administration Potassium Chloride 20 meq 07/29/19 09:00 07/31/19 08:03 Klor Con Er Tab* PO 20 meq DAILY MARINA Administration Psyllium Hydrophilic Mucilloid 1 pkt 07/27/19 09:00 07/31/19 08:15 Metamucil Guy* PO Not Given DAILY MARINA Senna 2 tab 07/20/19 11:19 Senokot 8.6 Mg Tab* PO BEDTIME PRN CONSTIPATION Tiotropium [place] 2 puff 07/21/19 18:00 07/31/19 08:06 Spiriva Respimat 2.5 Mcg INH 2 puff QAM MARINA Administration Vital Signs: Vital Signs Temp Pulse Resp BP Pulse Ox 98.2 F 60 16 132/68 97 07/31/19 05:36 07/31/19 05:36 07/31/19 05:36 07/31/19 05:36 07/31/19 05:36 Exam: GENERAL: No acute distress. Alert and appropriate. LUNGS: clear. HEART: Irregular rhythm ABDOMEN: Soft, + bowel sounds, non-tender, non-distended EXTREMITIES: BLE edema, scrotal edema improving NEUROLOGIC: Sensation intact x4. Motor 5/5 BLE except 4/5 left knee ext and hip flexion. Assessment/Plan: 84yo man s/p left TKR complicated by atrial fibrillation/arrhythmia 1. Left TKR: f/u Dr. Rodriguez. PT/OT. Pain meds as needed. Sutures removed 07/23. 2. Atrial fibrillation: cardizem, metoprolol, amiodarone, eliquis. 3. DVT prophylaxis: eliquis 4. Chronic kidney disease: Cr rising but still ok. 5. Depression: celexa 6. Wheezing/Resp: CXR 07/21 with hyperinflation despite no h/o copd/asthma. Spiriva/Xopenex/Atrovent. Better with increased Lasix. 7. Hyperbilirubinema: normalized. 8. Hypocalcemia and Thrombocytopenia: was seen by Dr. Lionel cuevas, but notes not available. Platelets 146K 9. Impaired cognition: Speech notes mild memory deficit and plans to do 2 co- treatments with PT/OT. 10. Advanced directives: full code 11. Edema: Lasix, increased to 40; normally takes HCTZ at home 12. Est LOS: 08/01/19 07/31/19 16:43
[2019-08-01 04:41] VITALS: BP 141/74
[2019-08-01 04:59] LABS: Calcium 8.3 mg/dL (8.6-10.3); EGFR African American 51.6 (>60); EGFR Non-African American 42.6 (>60); Potassium 3.4 mmol/L (3.5-5.0)
[2019-08-01] MEDS: Citalopram TAB* 20 MG PO SCH (10:09)
[2019-08-01] MEDS: Apixaban* 2.5 MG TAB PO SCH (10:09)
[2019-08-01] MEDS: Amiodarone TAB* 200 MG PO SCH (10:09)
[2019-08-01] MEDS: Pantoprazole TAB * 40 MG TAB PO SCH (10:10)
[2019-08-01] MEDS: Metoprolol Tartrate TAB* 50 mg PO SCH (10:10)
[2019-08-01] MEDS: Fluticasone NASAL SPRAY 50MCG* 16 gm SPRAY BTL BOTH NARES SCH (10:10)
[2019-08-01] MEDS: Diltiazem CD CAP* 120 MG PO SCH (10:10)
[2019-08-01] MEDS: Furosemide TAB* 20 MG PO SCH (10:10)
[2019-08-01] MEDS: Potassium Chlor TAB* 20 MEQ TAB.ER PO SCH (10:10)
[2019-08-01] MEDS: Psyllium PAK PO SCH (10:11)
[2019-08-01] MEDS: PRESERVISION AREDS PO SCH (10:30)
[2019-08-01] MEDS: SPIRIVA Respimat* (tiotropium) 2.5 mcg/inh Inhaler INH SCH (10:50)
[2019-08-01] MEDS ORDERED: Potassium Chlor TAB* 20 MEQ TAB.ER PO SCH (21:00)
--- NOTE | 2019-08-03 23:11 | DS ---
CC: Dr. Lincoln Javier; Dr. Jerome Lebron * DISCHARGE SUMMARY: DATE OF ADMISSION: 07/20/19 DATE OF DISCHARGE: 08/01/19 DISCHARGE DIAGNOSES: 1. Left total knee replacement. 2. Atrial fibrillation. 3. Wide complex tachycardia. 4. Coronary artery disease. 5. Depression. 6. Thrombocytopenia. HISTORY OF PRESENT ILLNESS AND HOSPITAL COURSE: For complete history of the events leading up to his rehab stay, please see the history and physical dictated by me on 07/20/19. On 07/24/19, the patient did report that he was not feeling well after working with therapy. His heart rate was measured by nursing staff and was over a 100. EKG was obtained. By that point, the patient was in sinus rhythm. There were no further episodes while on the rehab unit. The patient was maintained on amiodarone fully loaded and then his dose was decreased to 200 once daily. The patient had edema in his legs and his scrotum. He was started on Lasix, which he tolerated well. The Lasix dose was then increased from 20 mg daily to 40 mg daily. The patient continued to slowly diurese and began to breathe easier with no more wheezing. The patient's diuresis will be continued after discharge. The patient was noted to be hypokalemic. He was put on a potassium supplement, which was later increased to potassium twice a day. The patient was otherwise medically stable. His knee wound healed well. His candice were removed. Otherwise, the patient was medically stable. He was seen by Physical and Occupational Therapy while on the rehab unit and did well with both disciplines. With physical therapy at the time of admission, the patient required moderate amount of assistance to do a transfer. He was able to ambulate 50 feet with moderate amount of assistance. With occupational therapy at the time of admission, the patient required set up for upper body dressing, max assist for lower body dressing, dependent for putting shoes and socks on, dependent for toileting, and mod assist for toilet transfers. By the time of discharge, the patient was independent in dressing, still required max assist to put his shoes and socks, was independent in toileting and toilet transfers. He was independent in transfers. Able to ambulate 150 feet independently. Able to go up and down 4 steps with supervision. The patient was discharged home on 08/01/19. DISCHARGE DIET: Regular. DISCHARGE MEDICATIONS: 1. Amiodarone 200 mg once daily. 2. Eliquis 2.5 mg twice daily. 3. Celexa 20 mg daily. 4. Cardizem CD 120 mg daily. 5. Flonase 2 sprays to both nares daily. 6. Lasix 40 mg daily. 7. Metoprolol 50 mg every 12 hours. 8. Protonix 40 mg daily. 9. Potassium chloride 20 mEq orally twice daily. 10. Omeprazole 20 mg in the morning. 11. Atorvastatin 40 mg daily. DISPOSITION: Home. CONDITION AT DISCHARGE: Fair. SERVICES AFTER DISCHARGE: Through visiting nurse service. He will have home nursing, home physical therapy, and a home health aide. Follow up with his primary care doctor, Dr. Lincoln Javier as well as his orthopedic surgeon, Dr. Kira Rodriguez and his chemical unit operator, Dr. Jerome Lebron. TIME SPENT: Time for this discharge was approximately 50 minutes, greater than half of that was spent with the patient and his son explaining post- rehabilitation therapies, services, and medications. [id number]/[facility] #: [id number] MTDD
== END 2019-08-01 12:35 | disposition home health service (06) | DRG 561 ==
LOC: PMRU 10:53
PROVIDERS: ADMIT Physical Medicine & Rehabilitation; ATTEND Physical Medicine & Rehabilitation
PROC: F07Z5ZZ Bed Mobility Treatment (ICD-10-PCS; principal; 2019-07-20)
PROC: F07Z9ZZ Gait Training/Functional Ambulation Treatment (ICD-10-PCS; 2019-07-20)
PROC: F07Z8ZZ Transfer Training Treatment (ICD-10-PCS; 2019-07-20)
PROC: F07Z4ZZ Wheelchair Mobility Treatment (ICD-10-PCS; 2019-07-20)
PROC: F08Z0ZZ Bathing/Showering Techniques Treatment (ICD-10-PCS; 2019-07-20)
PROC: F08Z1ZZ Dressing Techniques Treatment (ICD-10-PCS; 2019-07-20)
PROC: F08Z3ZZ Feeding/Eating Treatment (ICD-10-PCS; 2019-07-20)
PROC: F08Z2ZZ Grooming/Personal Hygiene Treatment (ICD-10-PCS; 2019-07-20)
PROC: F06Z6ZZ Communicative/Cognitive Integration Skills Treatment (ICD-10-PCS; 2019-07-20)
DX: Z47.1 Aftercare following joint replacement surgery (principal); Z96.652 Presence of left artificial knee joint; D69.6 Thrombocytopenia, unspecified; F06.8 Other specified mental disorders due to known physiological condition; E83.51 Hypocalcemia; I25.10 Atherosclerotic heart disease of native coronary artery without angina pectoris; E78.5 Hyperlipidemia, unspecified; F41.9 Anxiety disorder, unspecified; M46.92 Unspecified inflammatory spondylopathy, cervical region; N18.9 Chronic kidney disease, unspecified; F32.9 Major depressive disorder, single episode, unspecified; I48.91 Unspecified atrial fibrillation; E80.6 Other disorders of bilirubin metabolism; Z95.1 Presence of aortocoronary bypass graft; Z79.01 Long term (current) use of anticoagulants; Z79.51 Long term (current) use of inhaled steroids; Z79.899 Other long term (current) drug therapy
CPT/HCPCS: 36415; 71046; 80048; 80053; 85025; 93005; 94640; A9270-GY; J3535

== ENCOUNTER 2021-07-18 12:37 | Inpatient (IN) ==
[2021-07-18 15:17] LABS: ABS Eosinophils 0.2 10^3/ul (0-0.6); ABS Lymphocytes 2.6 10^3/ul (1.0-4.8); ABS Monocytes 0.5 10^3/ul (0-0.8); ABS Neutrophils 2.3 10^3/ul (1.5-7.7); Hematocrit 42 % (42-52); Hemoglobin 14.4 g/dL (14.0-18.0); Lymphocyte % 45.5 %; Mean Corpuscular HGB Conc 35 g/dL (31-36); Mean Corpuscular Hemoglobin 36 pg (27-31); Mean Corpuscular Volume 104 fL (80-94); Mean Platelet Volume 9.8 fL (7.4-10.4); Platelet Count 109 10^3/uL (150-450); Red Blood Count 4.01 10^6 /uL (4.18-5.48); Red Cell Distribution Width 14 % (10-15); White Blood Count 5.6 10^3/uL (3.5-10.8)
[2021-07-18 15:47] LABS: Troponin I 0.03 ng/mL (<0.03)
[2021-07-18 15:59] LABS: ALT 15 U/L (7-52); AST 21 U/L (13-39); Albumin 4.2 g/dL (3.2-5.2); Albumin/Globulin Ratio 1.6 (1-3); Alkaline Phosphatase 70 U/L (35-149); Anion Gap 7 mmol/L (2-11); Blood Urea Nitrogen 31 mg/dL (6-24); CO2 Carbon Dioxide 30 mmol/L (22-32); Calcium 9.5 mg/dL (8.6-10.3); Chloride 102 mmol/L (101-111); Globulin 2.7 g/dL (2-4); Glucose 91 mg/dL (70-100); Potassium 4.2 mmol/L (3.5-5.0); Sodium 139 mmol/L (135-145); Total Protein 6.9 g/dL (6.4-8.9); eGFR CKD-EPI 41.4 (>60)
[2021-07-18] MEDS ORDERED: Lactated Ringers 1000 ml BAG 1,000 ML IV ONE (16:01)
[2021-07-18 16:39] LABS: Urine Appearance Clear; Urine Bilirubin Negative (Negative); Urine Blood Negative (Negative); Urine Color Yellow; Urine Glucose Negative (Negative); Urine Ketones Negative (Negative); Urine Nitrite Negative (Negative); Urine Protein Negative (Negative); Urine Urobilinogen Negative (Negative)
[2021-07-18] MEDS ORDERED: Ondansetron 4 mg VIAL 2 MG/ML 2 ml VIAL IV PRN (19:30)
[2021-07-18 19:54] LABS: Rapid COVID-19 Molecular Undetected (Undetected)
[2021-07-18 20:04] LABS: TSH Ultra Thyroid Stim Horm 5.27 mcIU/mL (0.34-5.60)
[2021-07-18 20:16] LABS: Vitamin B12 681 pg/mL (180-914)
[2021-07-18] MEDS: DULoxetine DR 60 mg CAP PO SCH (21:06)
[2021-07-18] MEDS: Potassium Chlor 20 meq TAB.ER PO SCH (21:06)
[2021-07-19 06:15] LABS: ABS Eosinophils 0.2 10^3/ul (0-0.6); ABS Lymphocytes 2.5 10^3/ul (1.0-4.8); ABS Monocytes 0.5 10^3/ul (0-0.8); ABS Neutrophils 1.9 10^3/ul (1.5-7.7); Eosinophil % 4.7 %; Hematocrit 38 % (42-52); Hemoglobin 12.9 g/dL (14.0-18.0); Lymphocyte % 47.9 %; Mean Corpuscular HGB Conc 34 g/dL (31-36); Mean Corpuscular Hemoglobin 35 pg (27-31); Mean Corpuscular Volume 103 fL (80-94); Mean Platelet Volume 9.3 fL (7.4-10.4); Platelet Count 88 10^3/uL (150-450); Red Blood Count 3.65 10^6 /uL (4.18-5.48); Red Cell Distribution Width 14 % (10-15); White Blood Count 5.3 10^3/uL (3.5-10.8)
[2021-07-19 06:28] LABS: Potassium 4.4 mmol/L (3.5-5.0); eGFR CKD-EPI 40.8 (>60)
[2021-07-19] MEDS: Multivitamins/Minerals TAB PO SCH (08:44)
[2021-07-19] MEDS: DULoxetine DR 60 mg CAP PO SCH ×2 (08:44→22:17)
[2021-07-19] MEDS: Potassium Chlor 20 meq TAB.ER PO SCH ×2 (08:45→22:19)
[2021-07-20] MEDS: DULoxetine DR 60 mg CAP PO SCH ×2 (09:27→20:29)
[2021-07-20] MEDS: Multivitamins/Minerals TAB PO SCH (09:27)
[2021-07-20] MEDS: Potassium Chlor 20 meq TAB.ER PO SCH ×2 (09:31→20:29)
[2021-07-20 09:54] LABS: CO2 Carbon Dioxide 21 mmol/L (22-32); Chloride 107 mmol/L (101-111); Magnesium 2.2 mg/dL (1.9-2.7); Sodium 136 mmol/L (135-145)
[2021-07-20 10:00] LABS: Blood Urea Nitrogen 29 mg/dL (6-24); Glucose 105 mg/dL (70-100); eGFR CKD-EPI 40.2 (>60)
[2021-07-20 10:29] LABS: Anion Gap 8 mmol/L (2-11)
[2021-07-20 12:22] LABS: ABS Eosinophils 0.2 10^3/ul (0-0.6); ABS Lymphocytes 1.9 10^3/ul (1.0-4.8); ABS Monocytes 0.5 10^3/ul (0-0.8); ABS Neutrophils 2.1 10^3/ul (1.5-7.7); Eosinophil % 3.4 %; Hematocrit 36 % (42-52); Hemoglobin 12.1 g/dL (14.0-18.0); Lymphocyte % 40.5 %; Mean Corpuscular HGB Conc 34 g/dL (31-36); Mean Corpuscular Hemoglobin 35 pg (27-31); Mean Corpuscular Volume 103 fL (80-94); Mean Platelet Volume 9.4 fL (7.4-10.4); Platelet Count 77 10^3/uL (150-450); Red Blood Count 3.47 10^6 /uL (4.18-5.48); Red Cell Distribution Width 14 % (10-15); White Blood Count 4.7 10^3/uL (3.5-10.8)
[2021-07-20 13:23] LABS: Urine Appearance Cloudy; Urine Bilirubin Negative (Negative); Urine Blood Negative (Negative); Urine Color Amber; Urine Glucose Negative (Negative); Urine Ketones Negative (Negative); Urine Nitrite Negative (Negative); Urine Protein Negative (Negative); Urine Specific Gravity 1.019 (1.002-1.030); Urine Urobilinogen Negative (Negative)
[2021-07-21 06:28] LABS: ABS Eosinophils 0.2 10^3/ul (0-0.6); ABS Lymphocytes 1.9 10^3/ul (1.0-4.8); ABS Monocytes 0.5 10^3/ul (0-0.8); ABS Neutrophils 2.5 10^3/ul (1.5-7.7); Eosinophil % 4.6 %; Hematocrit 36 % (42-52); Hemoglobin 12.3 g/dL (14.0-18.0); Lymphocyte % 36.5 %; Mean Corpuscular HGB Conc 34 g/dL (31-36); Mean Corpuscular Hemoglobin 35 pg (27-31); Mean Corpuscular Volume 103 fL (80-94); Mean Platelet Volume 9.6 fL (7.4-10.4); Platelet Count 82 10^3/uL (150-450); Red Blood Count 3.51 10^6 /uL (4.18-5.48); Red Cell Distribution Width 14 % (10-15); White Blood Count 5.1 10^3/uL (3.5-10.8)
[2021-07-21 06:38] LABS: Potassium 4.7 mmol/L (3.5-5.0); eGFR CKD-EPI 39.9 (>60)
[2021-07-21] MEDS: Potassium Chlor 20 meq TAB.ER PO SCH (08:29)
[2021-07-21] MEDS: DULoxetine DR 60 mg CAP PO SCH (08:29)
[2021-07-21] MEDS: Multivitamins/Minerals TAB PO SCH (08:30)
[2021-07-21 15:20] VITALS: BP 149/77
== END 2021-07-21 16:20 | disposition home or self-care (01) | DRG 309 ==
LOC: EDHOLD 12:37 → ED 12:37 → SUATTDRO 19:30 → EDHOLD 07-19 00:19 → MED 07-19 00:41 → SUATTDRO 07-20 09:27
PROVIDERS: ADMIT Internal Medicine; ATTEND Internal Medicine